=== PATIENT | male | born 1960 | race Caucasian/White ===

== ENCOUNTER 2017-06-15 16:57 | Emergency (ER) | payer OTHER ==
[2017-06-15] MEDS ORDERED: Pantoprazole IV* 40 MG IV ONE (18:55)
[2017-06-15 19:21] LABS: ABS Basophils 0.2 10^3/ul (0-0.2); ABS Eosinophils 0 10^3/ul (0-0.6); ABS Lymphocytes 1.3 10^3/ul (1.0-4.8); ABS Monocytes 0.9 10^3/ul (0-0.8); ABS Neutrophils 10.7 10^3/ul (1.5-7.7); ABS Nucleated RBC 0 10^3/ul; Eosinophil % 0.2 % (0-6); Hematocrit 39 % (42-52); Hemoglobin 13.2 g/dl (14.0-18.0); Lymphocyte % 9.7 % (25-47); Mean Corpuscular HGB Conc 34 g/dl (31-36); Mean Corpuscular Hemoglobin 28 pg (27-31); Mean Corpuscular Volume 81 fL (80-94); Mean Platelet Volume 8 um3 (7.4-10.4); Nucleated Red Blood Cells % 0; Platelet Count 247 10^3/ul (150-450); Red Blood Count 4.78 10^6/ul (4.0-5.4); Red Cell Distribution Width 19 % (10.5-15); White Blood Count 13.1 10^3/ul (3.5-10.8)
[2017-06-15 19:36] LABS: EGFR Non-African American 74.2 (>60)
[2017-06-15 19:58] LABS: Urine Appearance Clear; Urine Blood Negative (Negative); Urine Color Yellow; Urine Ketones Trace (Negative); Urine Protein 2+(100 mg/dL) (Negative); Urine Specific Gravity 1.028 (1.010-1.030); Urine Urobilinogen Negative (Negative)
[2017-06-15 21:21] VITALS: BP 132/81
--- NOTE | 2017-06-15 22:17 | ED ---
Diana Brown Julia, scribed for Kilo Chung MD on 06/15/17 at 1840 . Abdominal Pain/Male - HPI Summary HPI Summary: This patient is a 56 year old M presenting to [facility] with a chief complaint of two bouts of hematemesis beginning at 15:00. Patient reports currently resolved umbilical abdominal pain and nausea. Patient denies melena. The patient rates the previous pain 5/10 in severity. Pt reports no alcohol use in the past week. - History of Current Complaint Chief Complaint: EDAbdPain Stated Complaint: VOMITING BLOOD Time Seen by Provider: 06/15/17 18:14 Hx Obtained From: Patient Onset/Duration: Lasting Hours, Resolved Pain Intensity: 5 - currently resolve Pain Scale Used: 0-10 Numeric Location: Umbilical Associated Signs And Symptoms: Positive: Vomiting - with blood - Allergies/Home Medications Allergies/Adverse Reactions: Allergies Allergy/AdvReac Type Severity Reaction Status Date / Time No Known Allergies Allergy Verified 06/15/17 17:27 Home Medications: Home Medications Cholecalciferol TAB* [Vitamin D TAB*] 1,000 unit PO DAILY 06/15/17 [History Confirmed 06/15/17] Lisinopril/HCTZ 20/12.5(NF) [Zestoretic 20/12.5(NF)] 1 tab PO DAILY 06/15/17 [ History Confirmed 06/15/17] Meloxicam(NF) [Mobic(NF)] 15 mg PO DAILY 06/15/17 [History Confirmed 06/15/17] amLODIPine TAB* [Norvasc 5 mg TAB*] 10 mg PO DAILY 06/15/17 [History Confirmed 06/15/17] PMH/Surg Hx/FS Hx/Imm Hx Cardiovascular History: Reports: Hx Hypertension Infectious Disease History: No Infectious Disease History: Denies: Traveled Outside the [place] in Last 30 Days - Family History Known Family History: Negative: Cardiac Disease, Diabetes Family History: Pt denies any family history. - Social History Alcohol Use: Daily Alcohol Amount: states no use for 1 week Substance Use Type: Reports: None Smoking Status (MU): Light Every Day Tobacco Smoker Review of Systems Negative: Fever Positive: Abdominal Pain, Vomiting - with blood. Negative: Diarrhea - melena All Other Systems Reviewed And Are Negative: Yes Physical Exam - Summary Physical Exam Summary: Appearance: The patient is well-nourished in no acute distress and in no acute pain. Patient is tremorous. Skin: The skin is warm and dry and skin color reflects adequate perfusion. Complexion is stan. HEENT: The head is normocephalic and atraumatic. The pupils are equal and reactive. The conjunctivae are clear and without drainage. Nares are patent and without drainage. Mouth reveals moist mucous membranes and the throat is without erythema and exudate. The external ears are intact. The ear canals are patent and without drainage. The tympanic membranes are intact. Neck: the neck is supple with full range of motion and non-tender. There are no carotid bruits. There is no neck vein distension. Respiratory: Chest is non-tender. Lungs are clear to auscultation and breath sounds are symmetrical and equal. Cardiovascular: Heart is regular rate and rhythm. There is no murmur or rub auscultated. There is no peripheral edema and pulses are symmetrical and equal. Abdomen: The abdomen is soft and non-tender. There are normal bowel sounds heard in all four quadrants and there is no organomegaly palpated. Musculoskeletal: There is no back tenderness noted. Extremities are non-tender with full range of motion. There is good capillary refill. There is no peripheral edema or calf tenderness elicited. Neurological: Patient is alert and oriented to person, place and time. The patient has symmetrical motor strength in all four extremities. Cranial nerves are grossly intact. Deep tendon reflexes are symmetrical and equal in all four extremities. Psychiatric: The patient has an appropriate affect and does not exhibit any anxiety or depression. Triage Information Reviewed: Yes Vital Signs On Initial Exam: Initial Vitals Temp Pulse Resp BP Pulse Ox 98.4 F 110 17 161/97 97 06/15/17 17:09 06/15/17 17:09 06/15/17 17:09 06/15/17 17:09 06/15/17 17:09 Vital Signs Reviewed: Yes Diagnostics - Vital Signs Vital Signs Temp Pulse Resp BP Pulse Ox 06/15/17 18:30 90 16 141/91 96 06/15/17 18:26 97 146/92 97 06/15/17 18:25 96 97 06/15/17 17:09 98.4 F 110 17 161/97 97 - Laboratory Lab Results: Lab Results 06/15/17 06/15/17 06/15/17 Range/Units 19:10 19:10 19:10 WBC 13.1 H (3.5-10.8) 10^3/ul RBC 4.78 (4.0-5.4) 10^6/ul Hgb 13.2 L (14.0-18.0) g/dl Hct 39 L (42-52) % MCV 81 (80-94) fL MCH 28 (27-31) pg MCHC 34 (31-36) g/dl RDW 19 H (10.5-15) % Plt Count 247 (150-450) 10^3/ul MPV 8 (7.4-10.4) um3 Neut % (Auto) 81.9 (38-83) % Lymph % (Auto) 9.7 L (25-47) % Marinette % (Auto) 6.9 (1-9) % Eos % (Auto) 0.2 (0-6) % Baso % (Auto) 1.3 (0-2) % Absolute Neuts (auto) 10.7 H (1.5-7.7) 10^3/ul Absolute Lymphs (auto) 1.3 (1.0-4.8) 10^3/ul Absolute Monos (auto) 0.9 H (0-0.8) 10^3/ul Absolute Eos (auto) 0 (0-0.6) 10^3/ul Absolute Basos (auto) 0.2 (0-0.2) 10^3/ul Absolute Nucleated RBC 0 10^3/ul Nucleated RBC % 0 Sodium 134 (133-145) mmol/L Potassium 3.3 L (3.5-5.0) mmol/L Chloride 97 L (101-111) mmol/L Carbon Dioxide 30 (22-32) mmol/L Anion Gap 7 (2-11) mmol/L BUN 17 (6-24) mg/dL Creatinine 1.03 (0.67-1.17) mg/dL Est GFR ( Amer) 95.4 (>60) Est GFR (Non-Af Amer) 74.2 (>60) BUN/Creatinine Ratio 16.5 (8-20) Glucose 131 H (70-100) mg/dL Lactic Acid 0.8 (0.5-2.0) mmol/L Calcium 9.5 (8.6-10.3) mg/dL Total Bilirubin 0.30 (0.2-1.0) mg/dL AST 9 L (13-39) U/L ALT 5 L (7-52) U/L Alkaline Phosphatase 46 (34-104) U/L C-Reactive Protein < 1.00 (< 5.00) mg/L Total Protein 6.5 (6.4-8.9) g/dL Albumin 4.2 (3.2-5.2) g/dL Globulin 2.3 (2-4) g/dL Albumin/Globulin Ratio 1.8 (1-3) Lipase 97 H (11.0-82.0) U/L Urine Color Urine Appearance Urine pH (5-9) Ur Specific Glen (1.010-1.030) Urine Protein (Negative) Urine Ketones (Negative) Urine Blood (Negative) Urine Nitrate (Negative) Urine Bilirubin (Negative) Urine Urobilinogen (Negative) Ur Leukocyte Esterase (Negative) Urine WBC (Auto) (Absent) Urine RBC (Auto) (Absent) Ur Squamous Epith Cells (Absent) Urine Bacteria (Absent) Hyaline Casts (Absent) Urine Glucose (Negative) 06/15/17 Range/Units 19:42 WBC (3.5-10.8) 10^3/ul RBC (4.0-5.4) 10^6/ul Hgb (14.0-18.0) g/dl Hct (42-52) % MCV (80-94) fL MCH (27-31) pg MCHC (31-36) g/dl RDW (10.5-15) % Plt Count (150-450) 10^3/ul MPV (7.4-10.4) um3 Neut % (Auto) (38-83) % Lymph % (Auto) (25-47) % Marinette % (Auto) (1-9) % Eos % (Auto) (0-6) % Baso % (Auto) (0-2) % Absolute Neuts (auto) (1.5-7.7) 10^3/ul Absolute Lymphs (auto) (1.0-4.8) 10^3/ul Absolute Monos (auto) (0-0.8) 10^3/ul Absolute Eos (auto) (0-0.6) 10^3/ul Absolute Basos (auto) (0-0.2) 10^3/ul Absolute Nucleated RBC 10^3/ul Nucleated RBC % Sodium (133-145) mmol/L Potassium (3.5-5.0) mmol/L Chloride (101-111) mmol/L Carbon Dioxide (22-32) mmol/L Anion Gap (2-11) mmol/L BUN (6-24) mg/dL Creatinine (0.67-1.17) mg/dL Est GFR ( Amer) (>60) Est GFR (Non-Af Amer) (>60) BUN/Creatinine Ratio (8-20) Glucose (70-100) mg/dL Lactic Acid (0.5-2.0) mmol/L Calcium (8.6-10.3) mg/dL Total Bilirubin (0.2-1.0) mg/dL AST (13-39) U/L ALT (7-52) U/L Alkaline Phosphatase (34-104) U/L C-Reactive Protein (< 5.00) mg/L Total Protein (6.4-8.9) g/dL Albumin (3.2-5.2) g/dL Globulin (2-4) g/dL Albumin/Globulin Ratio (1-3) Lipase (11.0-82.0) U/L Urine Color Yellow Urine Appearance Clear Urine pH 5.0 (5-9) Ur Specific Glen 1.028 (1.010-1.030) Urine Protein 2+(100 mg/dl) H (Negative) Urine Ketones Trace H (Negative) Urine Blood Negative (Negative) Urine Nitrate Negative (Negative) Urine Bilirubin Negative (Negative) Urine Urobilinogen Negative (Negative) Ur Leukocyte Esterase Negative (Negative) Urine WBC (Auto) Trace(0-5/hpf) (Absent) Urine RBC (Auto) Trace(0-2/hpf) (Absent) Ur Squamous Epith Cells Present H (Absent) Urine Bacteria Absent (Absent) Hyaline Casts Present H (Absent) Urine Glucose Negative (Negative) Result Diagrams: 06/15/17 19:10 06/15/17 19:10 Lab Statement: Any lab studies that have been ordered have been reviewed, and results considered in the medical decision making process. Abdominal Pain Fem Course/Dx - Course Course Of Treatment: Mr. Markham presented with a bout of epigastric pain and hemetemesis about an hour ago that has since resolved. He denied drinking much alcohol to me but he clearly looked like a big drinker. His W//U was negative and he remained stable here and I recommended he F/U with his PMD. - Diagnoses Provider Diagnoses: Epigastric abdominal pain Discharge - Discharge Plan Condition: Stable Disposition: HOME Patient Education Materials: Epigastric Pain (ED) Referrals: Savage Munguia MD [Medical Doctor] - 1 Week Additional Instructions: RETURN TO THE EMERGENCY DEPARTMENT FOR CHANGING OR WORSENING SYMPTOMS. The documentation as recorded by the Diana walter Julia accurately reflects the service I personally performed and the decisions made by me, Kilo Chung MD.
--- NOTE | 2017-06-18 13:01 | PN ---
Progress Note - Progress Note Date of Service: 06/18/17 Note: Patient's blood cultures is A coccus epidermis. Spoke with patient and patient has not had any fevers. Patient is feeling well. Bacteria is likely contaminant. Will not treat at this time.
== END 2017-06-15 21:20 | disposition home or self-care (01) ==
LOC: ED 16:57
DX: R10.13 Epigastric pain (principal); Z72.0 Tobacco use; I10 Essential (primary) hypertension
CPT/HCPCS: 36415; 80053; 81003; 81015; 83605; 83690; 85025; 86140; 87040; 87077; 87150; 87205; 96374; 99283

== ENCOUNTER 2018-07-21 18:04 | Inpatient (IN) | payer OTHER ==
--- NOTE | 2018-07-21 18:51 | ED ---
Lower Extremity - HPI Summary HPI Summary: A 57 y/o M presents to ED with c/o L hip pain onset today. He rates his L hip pain as 7 out of 10 at bedside. Pt had two mechanical falls: his initial fall was unwitnessed in the bedroom. He says he "trips over everything." He bumped his head, has bruises to his back. His second fall in the kitchen was witnessed by family. He's having difficulty ambulating. Pt has never been in the hospital , he doesnt want to get his hip replaced. Associated sx: UE soreness. He denies JOHNSON, respiratory problems, abd pain, CP. Pt sees a [place] provider in [place]. 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 Neg: JOHNSON, respiratory problems, abd pain, CP, neck pain.. Negative: Abdominal Pain - Allergies/Home Medications Allergies/Adverse Reactions: Allergies Allergy/AdvReac Type Severity Reaction Status Date / Time No Known Allergies Allergy Verified 06/15/17 17:27 Home Medications: Home Medications Ergocalciferol (Vitamin D2) [Vitamin D2] 50 mcg PO DAILY 07/21/18 [History Confirmed 07/21/18] Ferrous Sulfate 325 mg PO DAILY 07/21/18 [History Confirmed 07/21/18] Lisinopril 20 mg PO DAILY WITH MEAL 07/21/18 [History Confirmed 07/21/18] Meloxicam(NF) 15 mg PO DAILY WITH MEAL 07/21/18 [History Confirmed 07/21/18] PMH/Surg Hx/FS Hx/Imm Hx Previously Healthy: No Cardiovascular History: Reports: Hx Hypertension Musculoskeletal History: Reports: Hx Arthritis Sensory History: Denies: Hx Legally Blind Opthamlomology History: Denies: Hx Legally Blind Infectious Disease History: No Infectious Disease History: Denies: Traveled Outside the [place] in Last 30 Days - Family History Known Family History: Negative: Cardiac Disease, Diabetes Family History: Pt denies any family history. - Social History Occupation: Unemployed Lives: Alone Alcohol Use: Daily Alcohol Amount: states no use for 1 week Hx Substance Use: No Substance Use Type: Reports: None Hx Tobacco Use: Yes Smoking Status (MU): Light Every Day Tobacco Smoker Review of Systems Negative: Chest Pain Respiratory: Negative Negative: Abdominal Pain Musculoskeletal: Other - pos: L hip pain, UE soreness, hematoma to his head Positive: Bruising - on back Positive: Headache All Other Systems Reviewed And Are Negative: Yes Physical Exam - Summary Physical Exam Summary: Constitutional: Well-developed, Well-nourished, Alert. (-) Distressed Skin: Warm, Dry HENT: Normocephalic; Abrasion to R parietal scalp. Eyes: Conjunctiva normal Neck: Musculoskeletal ROM normal neck. (-) JVD, (-) Stridor, (-) Tracheal deviation Cardio: Rhythm regular, rate normal, Heart sounds normal; Intact distal pulses; The pedal pulses are 2+ and symmetric. Radial pulses are 2+ and symmetric. (-) Murmur Pulmonary/Chest wall: Effort normal. (-) Respiratory distress, (-) Wheezes, (-) Rales Abd: Soft, (-) tenderness, (-) Distension, (-) Guarding, (-) Rebound Musculoskeletal: . TTP of L lateral hip, pain with passive interior and exterior rotation of LLE, active ROM of LLE appears less painful, LLE is slightly shortened and rotated externally Lymph: (-) Cervical adenopathy Neuro: Alert, Oriented x3 Psych: Mood and affect Normal Triage Information Reviewed: Yes Vital Signs On Initial Exam: Initial Vitals Temp Pulse Resp BP Pulse Ox 97.9 F 97 18 161/106 96 07/21/18 18:09 07/21/18 18:09 07/21/18 18:09 07/21/18 18:09 07/21/18 18:09 Vital Signs Reviewed: Yes - Doroteo Coma Scale Best Eye Response: 4 - Spontaneous Best Motor Response: 6 - Obeys Commands Best Verbal Response: 5 - Oriented Coma Scale Total: 15 Diagnostics - Vital Signs Vital Signs Temp Pulse Resp BP Pulse Ox 07/21/18 18:09 97.9 F 97 18 161/106 96 - Laboratory Result Diagrams: 07/21/18 19:10 07/21/18 19:10 Lab Statement: Any lab studies that have been ordered have been reviewed, and results considered in the medical decision making process. - Radiology HIP XR Radiology Interpretation Completed By: ED Physician Summary of Radiographic Findings: Severe degenerative joint dz of bilat hip, worse on Left. - CT BRAIN CT CT Interpretation Completed By: Radiologist Summary of CT Findings: IMPRESSION: 1. No traumatic intracranial abnormalities. 2. Age-related atrophy and mild chronic small vessel ischemic disease. ED provider has reviewed this report. - EKG No standard instances Cardiac Rate: NL EKG Rhythm: Sinus Rhythm ST Segment: Non-Specific Ectopy: None - Normal axis; Normal [place], QRS, QTC; ST's elevated in V1-V4, t- waves normal. Summary of EKG Findings: Normal axis; Normal [place], QRS, QTC; ST's elevated in V1- V4, t-waves normal. Overall, LVH, nonspecific EKG. Re-Evaluation - Re-Evaluation 1 Re-Evaluation Time: 21:17 Change: Unchanged Comment: Discussing results with pt and family. Lower Extremity Course/Dx - Course Course Of Treatment: Pt is a 57 y/o M presenting with L hip pain onset s/p two mechanical falls today. He bumped his head, Associated sx: UE soreness. He denies JOHNSON, respiratory problems, abd pain, CP. Lab work shows RBC: 3.87, Hgb: 11.8; potassium and calcium are low, total protein: 5.9. ETOH: 332. Hip XR shows Severe degenerative joint dz of bilat hip, worse on Left. Brain CT shows "1. No traumatic intracranial abnormalities. 2. Age-related atrophy and mild chronic small vessel ischemic disease.". MRI showed subtle occult intratrochanteric hip fracture of the left hip. This was discussed with Dr. Ho, who will see him in consultation tomorrow in the hospital. The patient was admitted to the hospitalist service for further evaluation and management of hip fracture. Dr. Calero was consulted and agrees with admission. - Diagnoses Differential Diagnosis/HQI/PQRI: Positive: Contusion, Fracture (Closed) Provider Diagnoses: Hip fracture - Physician Notifications Discussed Care Of Patient With: Nirmal Galeano - ortho Time Discussed With Above Provider: 21:23 Instructed by Provider To: Admit As Inpatient Discharge - Sign-Out/Discharge Documenting (check all that apply): Patient Departure Patient Received Moderate/Deep Sedation with Procedure: No - Discharge Plan Condition: Stable Disposition: ADMITTED TO [facility] Referrals: Sherrie Luther [Primary Care Provider] - - Billing Disposition and Condition Condition: STABLE Disposition: Admitted to [facility] - Attestation Statements Document Initiated by Kalynibalvina: Yes Documenting Scribe: Fatoumata Monroy Provider For Whom Vadim is Documenting (Include Credential): Dr. Lizzeth Lilly MD Scribe Attestation: Fatoumata Brown scribed for Dr. Lizzeth Lilly MD on at [id number]. Scribe Documentation Reviewed: Yes Provider Attestation: The documentation as recorded by the Fatoumata walter accurately reflects the service I personally performed and the decisions made by me, Dr. Lizzeth Lilly MD Status of Scribe Document: Viewed
[2018-07-21] MEDS ORDERED: NS 0.9% 1000 ML** 1,000 ML IV ONE (19:17)
[2018-07-21 19:20] LABS: ABS Basophils 0.1 10^3/ul (0-0.2); ABS Eosinophils 0.1 10^3/ul (0-0.6); ABS Monocytes 0.6 10^3/ul (0-0.8); ABS Neutrophils 4.8 10^3/ul (1.5-7.7); ABS Nucleated RBC 0 10^3/ul; Eosinophil % 1.2 %; Hematocrit 36 % (36-46); Hemoglobin 11.8 g/dL (14.0-18.0); Lymphocyte % 15.5 %; Mean Corpuscular HGB Conc 33 g/dL (31-36); Mean Corpuscular Hemoglobin 31 pg (27-31); Mean Corpuscular Volume 92 fL (80-94); Mean Platelet Volume 7.1 fL (7.4-10.4); Nucleated Red Blood Cells % 0; Platelet Count 251 10^3/uL (150-450); Red Blood Count 3.87 10^6 /uL (4.18-5.48); Red Cell Distribution Width 17 % (10.5-15); White Blood Count 6.6 10^3/uL (3.5-10.8)
[2018-07-21 19:26] LABS: INR 0.93 (0.77-1.02)
[2018-07-21 19:35] LABS: Albumin 3.9 g/dL (3.2-5.2); BUN/Creatinine Ratio 18.5 (8-20); Calcium 8.3 mg/dL (8.6-10.3); EGFR Non-African American 97.5 (>60); Potassium 3.2 mmol/L (3.5-5.0); Total Bilirubin 0.4 mg/dL (0.2-1.0); Total Protein 5.9 g/dL (6.4-8.9)
--- NOTE | 2018-07-21 22:48 | ED ---
Progress - Progress Note Progress Note: Patient was signed out from Dr. Lilly to Dr. Clay during a shift change, pending an MRI report. Re-Evaluation - Re-Evaluation 1 Re-Evaluation Time: 21:17 Change: Unchanged Comment: Discussing results with pt and family. Course/Dx - Course Course Of Treatment: Pt is a 57 y/o M presenting with L hip pain onset s/p two mechanical falls today. He bumped his head, Associated sx: UE soreness. He denies JOHNSON, respiratory problems, abd pain, CP. Lab work shows RBC: 3.87, Hgb: 11.8; potassium and calcium are low, total protein: 5.9. ETOH: 332. Hip XR shows Severe degenerative joint dz of bilat hip, worse on Left. Brain CT shows "1. No traumatic intracranial abnormalities. 2. Age-related atrophy and mild chronic small vessel ischemic disease.". Consulted with Dr. Aiken, roland, who recommends hip MRI. PT WILL BE SIGNED-OUT TO DR. CLAY AT SHIFT CHANGE PENDING MRI READ. - Provider Notifications Time Discussed With Above Provider: 21:23 Instructed by Provider To: Other - Recommends CT hip Discharge - Sign-Out/Discharge Documenting (check all that apply): Receiving Sign-Out Receiving patient FROM: Lizzeth Lilly - Pending an MRI report - Discharge Plan Referrals: Sherrie Luther [Primary Care Provider] - - Attestation Statements Document Initiated by Scribe: Yes Documenting Scribe: Quentin Toribio Provider For Whom Scribe is Documenting (Include Credential): Mahnaz Clay MD Scribe Attestation: Quentin Brown, scribed for Mahnaz Clay MD on 07/21/18 at 2246.
[2018-07-21] MEDS ORDERED: Lisinopril TAB* 10 MG PO ONE (22:51)
[2018-07-21] MEDS ORDERED: Morphine 4 MG/ML VIAL (1 ml) 4 MG/ML VIAL IV PRN (22:52)
[2018-07-22] MEDS ORDERED: amLODIPine TAB* 5 MG PO ONE (00:08)
[2018-07-22] MEDS ORDERED: oxyCODONE/Acetamin 5/325 MG* TAB PO PRN (00:09)
[2018-07-22] MEDS ORDERED: hydrALAZINE IV* 20 MG/ML VIAL IV SLOW PU PRN (00:12)
[2018-07-22 00:29] LABS: Magnesium 2.1 mg/dL (1.9-2.7)
[2018-07-22] MEDS ORDERED: Potassium Chloride LIQUID* 20 MEQ PACKET PO ONE (01:00)
[2018-07-22] MEDS: Nicotine PATCH 21 MG/24 HR* PATCH TRANSDERM SCH ×2 (01:51→07:19)
[2018-07-22] MEDS: Aspirin 81 mg CHEW TAB* 81 MG TAB.CHEW PO SCH ×2 (01:53→07:19)
[2018-07-22] MEDS ORDERED: Mouth Piece, Nicotine* 1 EACH CARTRIDGE INH ONE (02:00)
[2018-07-22] MEDS ORDERED: NS 0.9% 1000 ML** 1,000 ML IV SCH (06:30)
[2018-07-22 07:01] LABS: BUN/Creatinine Ratio 16.2 (8-20); Calcium 8.2 mg/dL (8.6-10.3); EGFR African American 144.4 (>60); EGFR Non-African American 119.4 (>60); Magnesium 1.7 mg/dL (1.9-2.7); Potassium 3.4 mmol/L (3.5-5.0)
[2018-07-22] MEDS ORDERED: Nicotine PATCH 21 MG/24 HR* PATCH TRANSDERM SCH (08:00)
[2018-07-22] MEDS: LORazepam TAB(*) 1 MG PO SCH ×3 (08:22→14:18)
[2018-07-22] MEDS: Folic Acid TAB* 1 MG PO SCH (08:23)
[2018-07-22] MEDS: Ferrous Sulfate TAB* 325 MG PO SCH (08:23)
[2018-07-22] MEDS: Thiamine TAB* 100 MG TAB PO SCH (08:24)
[2018-07-22] MEDS: Multivitamins/Minerals TAB PO SCH (08:24)
[2018-07-22] MEDS ORDERED: Magnesium Sulfate 2 GM IV* 2 GM/50 ML BAG IVPB ONE (08:42)
--- NOTE | 2018-07-22 09:01 | HP ---
HISTORY AND PHYSICAL: DATE OF ADMISSION: 07/21/18 ADMITTING PROVIDER: Trevor Calero MD. PRIMARY CARE PROVIDER: ROBERT Trammell, [facility]. CHIEF COMPLAINT: Inability to ambulate, left hip pain in the setting of frequent falls and severe bilateral osteoarthritis. HISTORY OF PRESENT ILLNESS: Hubert Markham is a 57-year-old male with past medical history of current and longstanding alcoholism, 2-myow-cpn-day smoker for the last 40 years, hypertension, severe bilateral hip osteoarthritis who falls frequently both with and without the presence of alcohol in his system. He is a very poor historian, but thankfully his sister; Salima Mora, and brother ; Marco A Markham, are in the room to provide additional history and accompanied Hubert to his [place] phlebotomy appointment this morning of admission and was noted to have difficulty with ambulation more than normal requiring his baseline cane. She states he did fall today. Hubert thinks that he has fallen over the last few days and at any point of time over the last few days, he may have hurt his hip as he has had increased pain with ambulation. He was convinced to seek medical attention by his sister and brother, and in the [facility] emergency room, he initially had a hip and pelvis x-ray, which reportedly did not show clear evidence of a fracture and Dr. Guzman Henry of the emergency room contacted orthopedics on-call coverage, Dr. Galeano, at that time, and given that the patient was still not able to ambulate, MRI of the left hip was obtained and that has since showed evidence of a left intertrochanteric femur fracture that was subtle and occult along with severe left and mild right hip primary osteoarthritis. He was therefore referred to hospitalist service for admission and Dr. Lilly, updated Dr. Galeano with these results and orthopedics will see the patient tomorrow. Because of his severe osteoarthritis, the patient does not ambulate well, uses a cane, has to use 3 steps to get into his house. Denies exercise. Denies getting chest pains. He denies ever having a heart attack or an echocardiogram of his heart. His brother, Marco A Markham, implies that he cannot necessarily be trusted to describe his symptoms or his alcohol use with any reliability. He is currently stating his pain is 5/10 in his hip, but that reportedly has been varying widely. He has been hypertensive and skipped his medications today, currently 189/125. EKG showed normal sinus rhythm with concern for left ventricular hypertrophy. PAST MEDICAL HISTORY: Alcohol abuse; current and longstanding, hypertension, severe left and mild right hip primary osteoarthritis, current smoker of 40 pack - years, vitamin D deficiency, iron deficiency. HOME MEDICATIONS: Include: 1. Ferrous sulfate 325 mg p.o. daily. 2. Ergocalciferol 50 mcg p.o. daily. 3. Meloxicam 15 mg p.o. daily. 4. Lisinopril 20 mg p.o. daily. 5. Aspirin 325 mg daily. ALLERGIES: No known drug allergies. FAMILY HISTORY: Father of lung cancer at age 65. Mother of kidney failure at age 83; she also had CHF and hypertension. SOCIAL HISTORY: The patient drinks vodka; he does not say how much, but implication from brother is that it is frequent and daily. He is a 1-pack-per- day smoker since joining the [employer] at age 18, so approximately 40 pack-years. He has had a DUI. 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 He lives alone. Desires to be a full code. Medical surrogates are his siblings, Marco A Markham and Salima Mora. REVIEW OF SYSTEMS: A 14-point review of systems is negative, except as per HPI. PHYSICAL EXAMINATION GENERAL APPEARANCE: In no acute distress. VITAL SIGNS: Temperature currently 99.3, pulse rate 97, respiratory rate 16 to 18, satting 96% on room air, blood pressure currently 189/125. HEENT: Normocephalic, atraumatic. Pupils are equal, round, and reactive to light. Extraocular muscles intact. No scleral icterus. NECK: Supple. LUNGS: Clear to auscultation bilaterally with no wheezing, rales, or rhonchi. CARDIOVASCULAR: Regular rate and rhythm. No murmurs, rubs, or gallops. ABDOMEN: Soft, nontender, nondistended. EXTREMITIES: Warm, well perfused. No peripheral edema. There is some slight erythema at the left hip. NEURO: Cranial nerves II through XII intact. [employer] strength intact. Biceps intact. Moving all extremities and can wiggle toes. Sensation intact. DIAGNOSTIC STUDIES/LAB DATA: Labs: White count 6.6, hemoglobin 11.8, hematocrit 36, platelets 251. INR 0.93. Sodium 142, potassium 3.2, chloride 102 , carbon dioxide 31, BUN of 15, creatinine 0.81, glucose 93, magnesium 2.1. Total bili 0.4, AST 26, ALT 13, albumin of 3.9. Serum alcohol 332. Imaging: CT of the brain demonstrated no traumatic intracranial abnormalities. There is age-related atrophy and mild chronic small-vessel ischemic disease. Hip and pelvis x-ray, read pending. Left MRI of the hip showed subtle occult left femoral intertrochanteric fracture and severe left and mild right hip primary osteoarthritis. EKG demonstrated a normal sinus rhythm. Normal axes. No ST elevations or depressions, but some early repolarization in anterior limb leads, V1 to V3. Evidence of left ventricular hypertrophy. QTc of 458. ASSESSMENT AND PLAN: Hubert Markham is a 57-year-old male with past medical history of current alcoholism, smoking, hypertension, and bilateral hip osteoarthritis presenting with frequent falls and now evidence of a subtle occult left intertrochanteric femur fracture. Appreciate recommendations from Orthopedics, who will be seeing the patient tomorrow. Presumably, he will be evaluated for a possible surgical procedure. This will potentially be complicated by his longstanding alcoholism. Of note, his markedly elevated EtOH level here is 332. He will be placed on WAM protocol with frequent Ativan p.r.n. and consideration for starting Librium if starts to score. In terms of his cardiac risk assessment, he does not exercise and his mobility is limited by his hip osteoarthritis for several years. Denies any chest pain. He does have evidence of left ventricular hypertrophy. No evidence of ischemic Q waves on EKG. No evidence of diabetes mellitus, currently non-insulin dependent. Given his risk factors of uncontrolled hypertension, 40 pack-years of and current smoking, I think it is reasonable to get a echocardiogram in the morning to assess for any cardiac disease such as regional wall motion abnormalities. As he is clinically euvolemic, I am not suspicious for any congestive heart failure. 1. Hypertension, uncontrolled. He has got his home lisinopril 20 here about an hour ago. I am adding amlodipine 10. I am increasing his lisinopril to 40 in the morning and we will have to closely monitor him. I am going to start hydralazine 10 mg IV q.2 hours p.r.n. for systolics above 180. It could be elevated also in the setting of acute pain, which we are controlling with adding on 1 to 2 Percocet tabs q.6 hours p.r.n. for [id number] pain. Consideration for IV medications if these are not adequate. 2. For his smoking history, start nicotine patch 20 mcg per hour tomorrow. 3. For his vitamin D deficiency, continue ergocalciferol or formulary substitute. 4. For his iron deficiency with some slight anemia and elevated RDW with intact MCV, continue his ferrous sulfate. Consideration for iron studies, but we will likely request records from the [place] system initially. 5. He is a full code. I will put him n.p.o. at midnight in case they want to do surgery tomorrow. His medical surrogates are his siblings, Marco A Markham and Salima Mora. [id number]/[facility] #: [id number] MTDJanice
[2018-07-22] MEDS: Lisinopril TAB* 10 MG PO SCH (09:53)
--- NOTE | 2018-07-22 10:51 | ECHO ---
Patient: THEO WASHINGTON [facility] Rec#: [id number] : 1960 Date: 07/22/2018 Age: 57y Height: 178 cm / 70.1 in Weight: 68 kg / 149.9 lbs Sex: M BSA: 1.85 Room#: 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 Technical Comments: The study is technically limited due to the patient's smoking history. Completed at 0850. The study was technically limited due to the patient's inability to lay in the left lateral decubitus position. Left Ventricle: The left ventricular chamber size is decreased. The estimated ejection fraction is greater than 65%. Abnormal left ventricular diastolic function is observed. Abnormal left ventricular diastolic filling is observed, consistent with impaired relaxation. Left Atrium: The left atrial chamber size is normal. Right Ventricle: The right ventricle is not well visualized. Right Atrium: The right atrium is not well visualized. Aortic Valve: The aortic valve structure is not well visualized. Mitral Valve: The mitral valve leaflets are mildly thickened. There is no evidence of mitral regurgitation. There is no evidence of mitral stenosis. Tricuspid Valve: The tricuspid valve leaflets are normal. There is trace to mild tricuspid regurgitation. Unable to estimate the right ventricular systolic pressure. There is evidence that pulmonary hypertension may be underestimated. There is no tricuspid stenosis. Pulmonic Valve: The pulmonic valve appears normal. There is no evidence of pulmonic regurgitation. There is no pulmonic stenosis. Pericardium: The pericardium appears normal. Aorta: The ascending aorta is not well visualized. There is no dilatation of the aortic arch. There is mild dilatation of the aortic root. Pulmonary Artery: The main pulmonary artery appears normal. Venous: The inferior vena cava appears normal in size. ? patient cooperation with sniff. Summary: There was not any prior study for comparison. Conclusions Suboptimal imaging due to hip fracture and limited mobility. The estimated ejection fraction is greater than 65%. There is trace to mild tricuspid regurgitation. Abnormal left ventricular diastolic filling is observed, consistent with impaired relaxation. Measurements Name Value Normal Range RVDdMajor (2D) 2.8 cm (2.2 - 4.4) IVSd (2D) 0.8 cm (0.6 - 1) LVPWd (2D) 0.9 cm (0.6 - 1) LVIDd (2D) 3.2 cm (3.6 - 5.4) LVIDs (2D) 2.9 cm - Aortic Annulus 1.8 cm (1.4 - 2.6) Ao root diameter (2D) 3.7 cm (2.1 - 3.5) Aortic arch 2.6 cm (1.8 - 3.4) Descending Ao 0.4 cm - LA dimension (AP) 2D 2.4 cm (2.3 - 3.8) LAd ISD 4CH 5.4 cm (2.9 - 5.3) LA ISD 4CH W 4.2 cm (2.5 - 4.5) Name Value Normal Range LA ESV SP 4CH (A/L) 30 ml - LA ESV SP 2CH (A/L) 24 ml - LA ESV BP (A/L) index 27 ml/m2 - Name Value Normal Range MV E-wave Vmax 0.6 m/sec - MV deceleration time 264 msec - MV A-wave Vmax 1.1 m/sec - MV E:A ratio 0.5 ratio - LV septal e' Vmax 0.8 m/sec - LV lateral e' Vmax 0.6 m/sec - LV E:e' septal ratio 7.5 ratio - LV E:e' lateral ratio 10 ratio - Name Value Normal Range AV Vmax 1.3 m/sec - AV VTI 25.3 cm - AV peak gradient 7 mmHg - AV mean gradient 3 mmHg - LVOT Vmax 1 m/sec - LVOT VTI 21.4 cm - LVOT peak gradient 4 mmHg - LVOT mean gradient 2 mmHg - Name Value Normal Range IVC diameter 2 cm - Name Value Normal Range PV Vmax 0.7 m/sec - PV peak gradient 2 mmHg -
--- NOTE | 2018-07-22 13:13 | CONS ---
CC: Dr. Nirmal Galeano. CONSULTATION REPORT: DATE OF CONSULT: 07/22/18 ATTENDING ORTHOPEDIC PROVIDER: Dr. Nirmal Galeano. PRIMARY CARE PROVIDER: Sherrie Luther NP, [facility]. CHIEF COMPLAINT: Inability to ambulate with severe left hip pain in the setting of frequent falls, most recently yesterday. HISTORY OF PRESENT ILLNESS: Hubert Markham is a 57-year-old male. He has a past medical history of current longstanding alcoholism, reports drinking roughly 4 ounces of vodka per day. He is a 1 pack per day smoker for 40 years, hypertension, frequent falls and severe left hip pain. History provided by the patient is quite limited. Therefore, his sister provides a great deal of the history. Apparently, the patient has had left hip pain, severe enough to require a walker or a cane for several years. Over the past several months, the pain has worsened and more recently in the past 3 days, he has had pain severe enough that he struggles to bear weight on the left leg. Yesterday he suffered a fall that prompted him to come into the emergency room as pain was again increasingly severe with inability to bear weight at all on the left leg. The patient has frequent falls at home, which his PCP is aware of and have been attributed to alcoholism. In the emergency room, he had a hip and pelvis x -ray, which did not show any clear evidence of fracture. An MRI was ordered, which showed severe osteoarthritis with the question of an intratrochanteric fracture, though upon further review from the orthopedic team as well as Radiology, MRI is interpret as severe arthritis without any evidence of IT fracture. Today he reports that he has no pain when he is lying still in bed of his left hip though he has severe pain with any movement or any attempt to ambulate. Pain is localized to the left hip without any radiation. It is sharp in nature, worse with any movement, better with rest. For several months he has had pain with any flexion of the hip though he has been able to range the hip enough to sit in a chair. The patient reports no other injuries from his fall though he has chronic right shoulder pain for months. PAST MEDICAL HISTORY: Alcoholism, hypertension, right hip osteoarthritis, current everyday smoker. HOME MEDICATIONS: 1. Ferrous sulfate 325. 2. Vitamin D. 3. Meloxicam 50 mg p.o. daily. 4. Lisinopril 20 mg p.o. daily. 5. Aspirin 325 mg daily. ALLERGIES: No known drug allergies. FAMILY HISTORY: Father of lung cancer, age 65; mother of kidney failure, age 83. SOCIAL HISTORY: The patient drinks vodka, reports drinking roughly 4 ounces a day for several months. He is a 1 pack per day smoker for roughly 40 years. The patient lives alone and takes care of himself. Sister reports that he was generally able to have a sensible conversation up until 3 days ago when he became quite confused. He does suffer frequent falls and utilizes a walker or cane. REVIEW OF SYSTEMS: Is quite limited as patient provides limited history. Sister reports that he has recent onset of confusion within 3 days, worsening left hip pain with inability to bear weight. The patient denies chest pain, shortness of breath, abdominal pain, nausea, or vomiting. He confirms hiccups since 4 am. PHYSICAL EXAM: The patient is lying in bed. He is alert though sleepy, falling asleep during questioning and answering only some of my questions. When he does answer, he answers appropriately. Head is normocephalic, atraumatic. Eyes: Extraocular movements intact. Mouth: Poor dentition. Cardiac: S1, S2. Respiratory: Clear to auscultation. Abdomen: Soft, nontender, bowel sounds normoactive. Musculoskeletal: Bilateral upper extremities with skin envelope intact. Able to produce flexion and extension at elbow, wrist and digits without pain. Able to forward flex shoulders without pain. Right side limited to roughly 110 degrees of forward flexion before pain. Upper extremities are nontender to palpation. Lower Extremities: Right lower extremity skin envelope intact. Nontender to palpation. Able to flex and extend at the hip, knee, ankle, and digits without pain. Negative log roll at the hip. Left lower extremity skin envelope intact. Mild ecchymosis over the left hip. This area is tender to palpation. The left lower extremity is otherwise nontender to palpation. Thigh is soft. He is able to flex and extend the digits and ankle without pain. Knee flexion produces pain into the hip. Flexion of the hip active and passive to 90 degrees. The patient has pain with this though once he arrives at 90 degrees pain subsides. He has pain with external rotation and unable to internally rotate. The patient reports that this range of motion has been baseline for the past several months. He has no pain with log roll and no pain with heel strike. There is no shortening or rotation of the limb. Neuro: Sensation intact to light touch throughout bilateral upper and lower extremities. Vascular: DP 2+ bilaterally. DIAGNOSTIC STUDIES/LAB DATA: Brain CT: No traumatic intracranial abnormalities. Hip and pelvis x-ray: Left greater than right osteoarthritis, no radiographic evidence for hip fracture. Hip MRI: It was initially felt that the patient could potentially have an intratrochanteric fracture, but after review this morning by orthopedic team as well as Radiology, new impression stands as markedly advanced osteoarthritis with flattening of the femoral head, subchondral sclerosis, subchondral cystic change, and associated subchondral bone marrow edema, associated joint effusion with evidence for synovitis, developmental dysplasia likely predisposed to the advanced left hip osteoarthritis, no discrete fracture plane evident in the left proximal femur or acetabulum, advanced atrophy of the left gluteus minimus muscle noted. Lab Studies: Hemoglobin 11.8, hematocrit 36, platelets 251. Potassium 3.4, calcium 8.2, magnesium 1.7. Serum alcohol 332. ASSESSMENT: This is severe osteoarthritis of the left hip joint. PLAN: He will be weightbearing as tolerated with assistance. He will engage in physical therapy and occupational therapy. If patient is able to mobilize sufficiently with physical therapy, he can be discharged to home and follow up with Dr. Carroll to discuss a total hip replacement. If he is unable to mobilize , we will revisit his options which would include a total hip replacement during this admission, though outpatient elective total hip is the preferred avenue. Discussed with patient the need to discontinue alcohol use. Orthopedics will follow while in house. ERIK VASQUEZ [id number]/[facility] #: [id number] SHERYL
--- NOTE | 2018-07-22 17:38 | PN ---
Subjective Date of Service: 07/22/18 Interval History: Pt states that he feels okay. Pt is shaking, but states that he has a baseline tremor that he has had for "years." It is noted that the pt has hiccups. He also appears slightly axious, but is cooperative. Pt states that he drinks approximately 1 pint of vodka daily and the last time he drank was 2 days ago. Pt c/o L hip pain. Denies CP, SOB, abd pain, n/v/d/c, pain in calves, loss of sensation or movement in LE. Objective Active Medications: Amlodipine Besylate (Norvasc Tab*) 10 mg PO DAILY [facility] Aspirin (Aspirin 81 Mg Chew Tab*) 81 mg PO DAILY [facility] Ferrous Sulfate (Ferrous Sulfate Tab*) 325 mg PO DAILY [facility] Folic Acid (Folvite Tab*) 1 mg PO DAILY [facility] Hydralazine HCl (Apresoline Iv*) 10 mg IV SLOW PU Q2H PRN Lisinopril (Prinivil Tab*) 40 mg PO DAILY [facility] Lorazepam (Ativan Tab(*)) 0 - 6 mg PO .PER [facility] PROTOCOL GERARDO; Protocol Morphine Sulfate (Morphine 4 Mg/Ml Vial (1 Ml)) 2 mg IV Q2H PRN Multivitamins/Minerals (Theragran/Minerals Tab*) 1 tab PO DAILY [facility] Nicotine (Nicotine Patch 21 Mg/24 Hr*) 1 patch TRANSDERM DAILY@0800 [facility] Nicotine (Nicotine Inhaler*) 10 mg INH Q2H PRN Non-Formulary Medication (Ergocalciferol (Vitamin D2) [Vitamin D2]) 50 mcg PO DAILY [facility] Oxycodone/Acetaminophen (Percocet 5/325 Tab*) 1 tab PO Q6H PRN Oxycodone/Acetaminophen (Percocet 5/325 Tab*) 2 tab PO Q6H PRN Pharmacy Profile Note (Nicotine Patch Removal Note*) 1 note FOLLOW UP 2100 [facility] Thiamine HCl (Vitamin B-1 Tab*) 100 mg PO DAILY [facility] Vital Signs: Temp Pulse Resp BP Pulse Ox 99.1 F 93 16 145/101 97 07/22/18 16:14 07/22/18 16:14 07/22/18 16:21 07/22/18 16:14 07/22/18 16:14 Oxygen Devices in Use Now: None Appearance: Pt is sitting up in bed. He has resting tremor and appears slightly anxious, without aggitation. He is cooperative and appropriate. Pt is a/o x3, but answers questions slowly and with a small amount of slurring of speech. It is noted that he has hiccups that may be interfering with speech. Eyes: No Scleral Icterus, PERRLA, - - Without nystagmus Ears/Nose/Mouth/Throat: NL Teeth, Lips, Gums, Mucous Membranes Moist Neck: NL Appearance and Movements; NL JVP, Trachea Midline Respiratory: Symmetrical Chest Expansion and Respiratory Effort, Clear to Auscultation Cardiovascular: NL Sounds; No Murmurs; No JVD, RRR, No Edema Abdominal: NL Sounds; No Tenderness; No Distention, No Hepatosplenomegaly Extremities: No Edema, No Clubbing, Cyanosis, - - Without asterixis. L hip is TTP with ecchymosis. Pt moves all extremities. Neurological: Alert and Oriented x 3 Result Diagrams: 07/21/18 19:10 07/22/18 06:25 Assess/Plan/Problems-Billing Assessment: Pt is a 57yom with PMHx of HTN, alcohol abuse, severe L, mild R hip OA, Fe def anemia, Vit D def who presents after a fall with L hip pain (no fx) uncontrolled HTN in setting of acute pain and EtOH withdrawal. - Patient Problems (1) Hypertension Comment: -SBP 140-180's; likely due to combination of pain and EtOH withdrawal -Continue hydralazine, losartan 40 -Restart Amlodipine 10 -Continue IV hydration at 100cc/h x2L (2) Alcohol withdrawal Comment: -[facility] protocol ordered -Continue to monitor (3) Osteoarthritis of left hip Comment: -Consulted ortho- thank you for recommendations -WBAT -PT/OT -F/u Dr. Carroll outpatient for total hip replacement (4) DVT prophylaxis Current Visit: Yes Status: Acute Code(s): [id number] - SNOMED Code(s): 508949653 (5) Full code status Current Visit: Yes Status: Acute Code(s): Z78.9 - OTHER SPECIFIED HEALTH STATUS SNOMED Code(s): 853333472 Status and Disposition: Inpatient. Discharge when stable.
[2018-07-22] MEDS: oxyCODONE/Acetamin 5/325 MG* TAB PO PRN (18:06)
[2018-07-22] MEDS: NS 0.9% 1000 ML** 1,000 ML IV SCH (18:14)
[2018-07-22] MEDS ORDERED: Morphine INJ* 2 MG/ML 1 ML SYRINGE (TWO MG - NEW SYRINGE VERSION) IV PRN (18:46)
--- NOTE | 2018-07-22 19:01 | PN ---
Progress Note - Progress Note Date of Service: 07/22/18 Note: I saw and examined Hubert. Please see Lizzeth Yost's consult note for full details. Hubert was not very participatory with talking or exam. He mostly mumbled responses which were often not understandable. I wasn't able to get much history from him other than that he has had long-standing left hip pain. On exam of the hip there is no significant hematoma or ecchymoses appreciated. No TTP over GT. No pain will logroll. No pain with short arc PROM. ROM limited as would be expected with severe arthritis. I reviewed xrays and MRI and discussed with Dr Harrison. Imaging most c/w severe left hip arthritis. No signal on T2 MRI at IT region to suggest occult fracture. The line seen on T1 is similar on right hip. Overall i think [facility] exam and imaging more c/w severe arthritis than a hip fracture. Therefore I would recommend mobilization with PT. He can f/u as an outpatient with my colleague Dr Carroll to further discuss a left BEAN. Nirmal Galeano MD
[2018-07-22] MEDS: Nicotine Patch Removal NOTE FOLLOW UP SCH (21:30)
[2018-07-23] MEDS: NS 0.9% 1000 ML** 1,000 ML IV SCH (04:19)
[2018-07-23 05:58] LABS: Hematocrit 32 % (36-46); Hemoglobin 10.5 g/dL (14.0-18.0); Mean Corpuscular HGB Conc 33 g/dL (31-36); Mean Corpuscular Hemoglobin 31 pg (27-31); Mean Corpuscular Volume 92 fL (80-94); Mean Platelet Volume 7.5 fL (7.4-10.4); Platelet Count 186 10^3/uL (150-450); Red Blood Count 3.44 10^6 /uL (4.18-5.48); Red Cell Distribution Width 17 % (10.5-15); White Blood Count 5.1 10^3/uL (3.5-10.8)
[2018-07-23 06:18] LABS: BUN/Creatinine Ratio 14.3 (8-20); Calcium 8.1 mg/dL (8.6-10.3); EGFR African American 157.7 (>60); EGFR Non-African American 130.4 (>60); Magnesium 1.9 mg/dL (1.9-2.7)
[2018-07-23] MEDS ORDERED: Ondansetron INJ* 2 MG/ML VIAL IV PRN (09:57)
[2018-07-23] MEDS: Ferrous Sulfate TAB* 325 MG PO SCH ×2 (10:00→11:09)
[2018-07-23] MEDS: Multivitamins/Minerals TAB PO SCH ×2 (10:00→11:09)
[2018-07-23] MEDS: ERGOCALCIFEROL 50 MCG PO SCH (10:00)
[2018-07-23] MEDS: Folic Acid TAB* 1 MG PO SCH ×2 (10:00→11:09)
[2018-07-23] MEDS ORDERED: Ondansetron INJ* 2 MG/ML VIAL ONE (10:01)
[2018-07-23] MEDS: Nicotine PATCH 21 MG/24 HR* PATCH TRANSDERM SCH (10:03)
[2018-07-23] MEDS ORDERED: Potassium Chlor TAB* 20 MEQ TAB.ER PO ONE (10:23)
[2018-07-23] MEDS ORDERED: chlordiazePOXIDE CAP* 25 MG PO ONE (10:43)
[2018-07-23] MEDS: Lisinopril TAB* 10 MG PO SCH (11:08)
[2018-07-23] MEDS: LORazepam TAB(*) 1 MG PO SCH ×6 (11:08→22:09)
[2018-07-23] MEDS: Thiamine TAB* 100 MG TAB PO SCH (11:09)
[2018-07-23] MEDS: Aspirin 81 mg CHEW TAB* 81 MG TAB.CHEW PO SCH (11:09)
[2018-07-23] MEDS: amLODIPine TAB* 5 MG PO SCH (11:09)
--- NOTE | 2018-07-23 14:11 | PN ---
Progress Note - Progress Note Date of Service: 07/23/18 SOAP: Subjective: []Pt seen at bedside. His left hip is painful but he reports walking to the bathroom Objective: []General: NAD, conversation appropriate though still slow today LLE: laying in bed with left knee bent, hip at 90 degrees patient without discomfort in this position at rest. Negative for pain with log roll. Assessment: []left hip severe osteoarthritis Plan: []WBAT with assist FU Dr Carroll outpt Vital Signs Temp 97.9 F 07/23/18 08:50 Pulse 121 07/23/18 13:51 Resp 16 07/23/18 13:51 BP 145/118 07/23/18 13:51 Pulse Ox 95 07/23/18 13:51 Intake & Output 07/22/18 07/23/18 07/23/18 18:59 06:59 18:59 Intake Total 1388 60 Output Total 700 300 600 Balance 688 -240 -600 Intake: IV Fluids 808 NS 808 Medicated IV 50 Magnesium 50 Oral 530 60 Output: Urine 700 300 350 Emesis 250 Other: Estimated Void Medium # Bowel Movements 0 # Voids 1
--- NOTE | 2018-07-23 16:21 | PN ---
Subjective Date of Service: 07/23/18 Interval History: Nauseous this am disorientated and trying to get out of bed to urinate Objective Active Medications: Amlodipine Besylate (Norvasc Tab*) 10 mg PO DAILY [facility] Last Admin: 07/23/18 11:09 Dose: 10 mg Aspirin (Aspirin 81 Mg Chew Tab*) 81 mg PO DAILY [facility] Last Admin: 07/23/18 11:09 Dose: 81 mg Ferrous Sulfate (Ferrous Sulfate Tab*) 325 mg PO DAILY [facility] Last Admin: 07/23/18 11:09 Dose: 325 mg Folic Acid (Folvite Tab*) 1 mg PO DAILY [facility] Last Admin: 07/23/18 11:09 Dose: 1 mg Hydralazine HCl (Apresoline Iv*) 10 mg IV SLOW PU Q2H PRN PRN Reason: SYSTOLIC BP GREATER THAN: Last Admin: 07/22/18 12:25 Dose: 10 mg Sodium Chloride (Ns 0.9% 1000 Ml) 1,000 mls @ 100 mls/hr IV PER RATE [facility] Stop: 07/24/18 03:59 Last Admin: 07/23/18 04:19 Dose: 100 mls/hr Lisinopril (Prinivil Tab*) 40 mg PO DAILY [facility] Last Admin: 07/23/18 11:08 Dose: 40 mg Lorazepam (Ativan Tab(*)) 0 - 6 mg PO .PER [facility] PROTOCOL [facility]; Protocol Last Admin: 07/23/18 16:13 Dose: 4 mg Multivitamins/Minerals (Theragran/Minerals Tab*) 1 tab PO DAILY [facility] Last Admin: 07/23/18 11:09 Dose: 1 tab Nicotine (Nicotine Patch 21 Mg/24 Hr*) 1 patch TRANSDERM DAILY@0800 [facility] Last Admin: 07/23/18 10:03 Dose: 1 patch Nicotine (Nicotine Inhaler*) 10 mg INH Q2H PRN PRN Reason: CRAVING Non-Formulary Medication (Ergocalciferol (Vitamin D2) [Vitamin D2]) 50 mcg PO DAILY [facility] Last Admin: 07/23/18 10:00 Dose: Not Given Ondansetron HCl (Zofran Inj*) 4 mg IV Q4H PRN PRN Reason: NAUSEA Last Admin: 07/23/18 10:02 Dose: 4 mg Oxycodone/Acetaminophen (Percocet 5/325 Tab*) 2 tab PO Q6H PRN PRN Reason: PAIN - SEVERE Last Admin: 07/22/18 18:06 Dose: 2 tab Pharmacy Profile Note (Nicotine Patch Removal Note*) 1 note FOLLOW UP 2099 [facility] Last Admin: 07/22/18 21:30 Dose: 1 note Thiamine HCl (Vitamin B-1 Tab*) 100 mg PO DAILY [facility] Last Admin: 07/23/18 11:09 Dose: 100 mg Vital Signs - 8 hr 07/23/18 07/23/18 07/23/18 08:50 10:54 11:08 Temperature 97.9 F Pulse Rate 72 113 Respiratory 16 18 18 Rate Blood Pressure 164/99 164/112 (mmHg) O2 Sat by Pulse 97 97 Oximetry 07/23/18 07/23/18 07/23/18 11:09 13:25 13:31 Temperature Pulse Rate Respiratory 18 18 20 Rate Blood Pressure (mmHg) O2 Sat by Pulse Oximetry 07/23/18 07/23/18 13:51 16:13 Temperature Pulse Rate 121 Respiratory 16 16 Rate Blood Pressure 145/118 (mmHg) O2 Sat by Pulse 95 Oximetry Oxygen Devices in Use Now: None Appearance: disheveled, NAD Eyes: No Scleral Icterus, PERRLA Ears/Nose/Mouth/Throat: NL Teeth, Lips, Gums, Clear Oropharnyx Neck: NL Appearance and Movements; NL JVP, Trachea Midline Respiratory: Symmetrical Chest Expansion and Respiratory Effort, Clear to Auscultation Cardiovascular: RRR Abdominal: NL Sounds; No Tenderness; No Distention, No Hepatosplenomegaly Lymphatic: No Cervical Adenopathy Extremities: No Edema Skin: - - lipoma on right forearm Neurological: Alert and Oriented x 3, - - tongue tremor, tremor bl arms Result Diagrams: 07/23/18 05:37 07/23/18 05:37 Assess/Plan/Problems-Billing Assessment: Pt is a 57yom with PMHx of HTN, alcohol abuse, severe L, mild R hip OA, iron def anemia, Vit D def who presents after a fall with L hip pain (no fx) uncontrolled HTN in setting of acute pain and EtOH withdrawal. - Patient Problems (1) Alcohol withdrawal Comment: - c/w WAM protocol -single dose 25mg librium today -Continue to monitor (2) Hypertension Comment: -SBP elevated likely due to combination of pain and EtOH withdrawal -Continue hydralazine PRN - lisinopril and Amlodipine (3) Osteoarthritis of left hip Comment: -Consulted ortho -WBAT -PT/OT -F/u Dr. Carroll outpatient for total hip replacement -pain from fall on left hip (4) DVT prophylaxis Comment: HSQ Status and Disposition: Inpatient. Discharge when stable.
[2018-07-23] MEDS: Heparin VIAL(*) 5000 UNITS/ML VIAL (FIVE THOUSAND) SUBCUT SCH (22:42)
[2018-07-23] MEDS: Nicotine Patch Removal NOTE FOLLOW UP SCH (22:42)
[2018-07-24] MEDS: LORazepam TAB(*) 1 MG PO SCH ×6 (00:13→20:46)
[2018-07-24] MEDS: Heparin VIAL(*) 5000 UNITS/ML VIAL (FIVE THOUSAND) SUBCUT SCH ×3 (06:06→20:47)
[2018-07-24] MEDS: amLODIPine TAB* 5 MG PO SCH (10:36)
[2018-07-24] MEDS: Lisinopril TAB* 10 MG PO SCH (10:36)
[2018-07-24] MEDS: Folic Acid TAB* 1 MG PO SCH (10:41)
[2018-07-24] MEDS: Ferrous Sulfate TAB* 325 MG PO SCH (10:41)
[2018-07-24] MEDS: Aspirin 81 mg CHEW TAB* 81 MG TAB.CHEW PO SCH (10:41)
[2018-07-24] MEDS: ERGOCALCIFEROL 50 MCG PO SCH (10:49)
[2018-07-24] MEDS: Multivitamins/Minerals TAB PO SCH (10:50)
[2018-07-24] MEDS: Thiamine TAB* 100 MG TAB PO SCH (10:50)
[2018-07-24] MEDS: Nicotine PATCH 21 MG/24 HR* PATCH TRANSDERM SCH (10:53)
--- NOTE | 2018-07-24 15:17 | PN ---
Subjective Date of Service: 07/24/18 Interval History: Seen with sister at bedside Pt confused today but oriented x 2, not to year Increased requirement for ativan last 24 hrs Declining or outpatient rehab services Objective Active Medications: Amlodipine Besylate (Norvasc Tab*) 10 mg PO DAILY [facility] Last Admin: 07/24/18 10:36 Dose: 10 mg Aspirin (Aspirin 81 Mg Chew Tab*) 81 mg PO DAILY [facility] Last Admin: 07/24/18 10:41 Dose: 81 mg Ferrous Sulfate (Ferrous Sulfate Tab*) 325 mg PO DAILY [facility] Last Admin: 07/24/18 10:41 Dose: 325 mg Folic Acid (Folvite Tab*) 1 mg PO DAILY [facility] Last Admin: 07/24/18 10:41 Dose: 1 mg Heparin Sodium (Porcine) (Heparin Vial(*)) 5,000 units SUBCUT Q8HR [facility] Last Admin: 07/24/18 06:06 Dose: 5,000 units Hydralazine HCl (Apresoline Iv*) 10 mg IV SLOW PU Q2H PRN PRN Reason: SYSTOLIC BP GREATER THAN: Last Admin: 07/22/18 12:25 Dose: 10 mg Lisinopril (Prinivil Tab*) 40 mg PO DAILY [facility] Last Admin: 07/24/18 10:36 Dose: 40 mg Lorazepam (Ativan Tab(*)) 0 - 6 mg PO .PER [facility] PROTOCOL [facility]; Protocol Last Admin: 07/24/18 10:36 Dose: 3 mg Multivitamins/Minerals (Theragran/Minerals Tab*) 1 tab PO DAILY [facility] Last Admin: 07/24/18 10:50 Dose: 1 tab Nicotine (Nicotine Patch 21 Mg/24 Hr*) 1 patch TRANSDERM DAILY@0800 [facility] Last Admin: 07/24/18 10:53 Dose: 1 patch Nicotine (Nicotine Inhaler*) 10 mg INH Q2H PRN PRN Reason: CRAVING Non-Formulary Medication (Ergocalciferol (Vitamin D2) [Vitamin D2]) 50 mcg PO DAILY [facility] Last Admin: 07/24/18 10:49 Dose: Not Given Ondansetron HCl (Zofran Inj*) 4 mg IV Q4H PRN PRN Reason: NAUSEA Last Admin: 07/23/18 10:02 Dose: 4 mg Oxycodone/Acetaminophen (Percocet 5/325 Tab*) 2 tab PO Q6H PRN PRN Reason: PAIN - SEVERE Last Admin: 07/22/18 18:06 Dose: 2 tab Pharmacy Profile Note (Nicotine Patch Removal Note*) 1 note FOLLOW UP 2100 [facility] Last Admin: 07/23/18 22:42 Dose: 1 note Thiamine HCl (Vitamin B-1 Tab*) 100 mg PO DAILY [facility] Last Admin: 07/24/18 10:50 Dose: 100 mg Vital Signs - 8 hr 07/24/18 07/24/18 07/24/18 07:28 08:00 08:48 Temperature 97.1 F Pulse Rate 73 Respiratory 16 21 20 Rate Blood Pressure 136/94 (mmHg) O2 Sat by Pulse 97 Oximetry 07/24/18 07/24/18 07/24/18 10:05 10:36 11:58 Temperature 97.2 F 97.2 F Pulse Rate 66 77 Respiratory 16 20 16 Rate Blood Pressure 151/103 141/97 (mmHg) O2 Sat by Pulse 96 95 Oximetry 07/24/18 07/24/18 12:45 14:08 Temperature 97.3 F Pulse Rate 108 Respiratory 18 20 Rate Blood Pressure 138/88 (mmHg) O2 Sat by Pulse 96 Oximetry Oxygen Devices in Use Now: None Appearance: disheveled, NAD Eyes: No Scleral Icterus, PERRLA Ears/Nose/Mouth/Throat: NL Teeth, Lips, Gums, Clear Oropharnyx Neck: NL Appearance and Movements; NL JVP, Trachea Midline Respiratory: Symmetrical Chest Expansion and Respiratory Effort, Clear to Auscultation Cardiovascular: RRR Abdominal: NL Sounds; No Tenderness; No Distention, No Hepatosplenomegaly Lymphatic: No Cervical Adenopathy Extremities: No Edema Neurological: - - AOx2, tremulous, moves extremities, PERRLA, EOMI Result Diagrams: 07/23/18 05:37 07/23/18 05:37 Assess/Plan/Problems-Billing Assessment: Pt is a 57yom with PMHx of HTN, alcohol abuse, left and right OA who presents after a fall with L hip pain (no fracture) uncontrolled HTN in setting of acute pain and EtOH withdrawal. - Patient Problems (1) Alcohol withdrawal Comment: - c/w WAM protocol -single dose 25mg librium on 07/23 -Continue to monitor - declining rehab (2) Hypertension Comment: -SBP elevated likely due to combination of pain and EtOH withdrawal -Continue hydralazine PRN -lisinopril and Amlodipine (3) Osteoarthritis of left hip Comment: -Consulted ortho -WBAT -PT/OT -F/u Dr. Carroll outpatient for total hip replacement -pain from fall on left hip (4) Hypokalemia Comment: replete, and trend (5) DVT prophylaxis Comment: HSQ Status and Disposition: Inpatient. Discharge when stable.
[2018-07-24] MEDS ORDERED: Mouth Piece, Nicotine* 1 EACH CARTRIDGE ONE (20:44)
[2018-07-24] MEDS: Nicotine Inhaler* 10 MG AMP INH PRN (20:47)
[2018-07-24] MEDS: Nicotine Patch Removal NOTE FOLLOW UP SCH (20:52)
[2018-07-25] MEDS: LORazepam TAB(*) 1 MG PO SCH ×4 (00:01→22:40)
[2018-07-25] MEDS: Heparin VIAL(*) 5000 UNITS/ML VIAL (FIVE THOUSAND) SUBCUT SCH ×3 (06:01→20:53)
[2018-07-25 06:38] LABS: BUN/Creatinine Ratio 17.9 (8-20); Calcium 8.7 mg/dL (8.6-10.3); EGFR African American 146.9 (>60); EGFR Non-African American 121.4 (>60); Potassium 3.4 mmol/L (3.5-5.0)
[2018-07-25] MEDS: ERGOCALCIFEROL 50 MCG PO SCH (10:19)
[2018-07-25] MEDS: Lisinopril TAB* 10 MG PO SCH (10:26)
[2018-07-25] MEDS: amLODIPine TAB* 5 MG PO SCH (10:26)
[2018-07-25] MEDS: Aspirin 81 mg CHEW TAB* 81 MG TAB.CHEW PO SCH (10:29)
[2018-07-25] MEDS: Folic Acid TAB* 1 MG PO SCH (10:29)
[2018-07-25] MEDS: Ferrous Sulfate TAB* 325 MG PO SCH (10:29)
[2018-07-25] MEDS: Thiamine TAB* 100 MG TAB PO SCH (10:29)
[2018-07-25] MEDS: Multivitamins/Minerals TAB PO SCH (10:29)
[2018-07-25] MEDS: Nicotine PATCH 21 MG/24 HR* PATCH TRANSDERM SCH (10:31)
[2018-07-25] MEDS ORDERED: Potassium Chlor TAB* 20 MEQ TAB.ER PO ONE (14:51)
--- NOTE | 2018-07-25 14:55 | PN ---
Subjective Date of Service: 07/25/18 Interval History: Seen with sister at bedside who thinks he is improving Pt has no complaints, sitting up eating/feeding self Less agitated/confused today Objective Active Medications: Amlodipine Besylate (Norvasc Tab*) 10 mg PO DAILY [facility] Last Admin: 07/25/18 10:26 Dose: 10 mg Aspirin (Aspirin 81 Mg Chew Tab*) 81 mg PO DAILY [facility] Last Admin: 07/25/18 10:29 Dose: 81 mg Ferrous Sulfate (Ferrous Sulfate Tab*) 325 mg PO DAILY [facility] Last Admin: 07/25/18 10:29 Dose: 325 mg Folic Acid (Folvite Tab*) 1 mg PO DAILY [facility] Last Admin: 07/25/18 10:29 Dose: 1 mg Heparin Sodium (Porcine) (Heparin Vial(*)) 5,000 units SUBCUT Q8HR [facility] Last Admin: 07/25/18 14:08 Dose: 5,000 units Hydralazine HCl (Apresoline Iv*) 10 mg IV SLOW PU Q2H PRN PRN Reason: SYSTOLIC BP GREATER THAN: Last Admin: 07/22/18 12:25 Dose: 10 mg Lisinopril (Prinivil Tab*) 40 mg PO DAILY [facility] Last Admin: 07/25/18 10:26 Dose: 40 mg Lorazepam (Ativan Tab(*)) 0 - 6 mg PO .PER [facility] PROTOCOL [facility]; Protocol Last Admin: 07/25/18 14:08 Dose: 2 mg Multivitamins/Minerals (Theragran/Minerals Tab*) 1 tab PO DAILY [facility] Last Admin: 07/25/18 10:29 Dose: 1 tab Nicotine (Nicotine Patch 21 Mg/24 Hr*) 1 patch TRANSDERM DAILY@0800 [facility] Last Admin: 07/25/18 10:31 Dose: 1 patch Nicotine (Nicotine Inhaler*) 10 mg INH Q2H PRN PRN Reason: CRAVING Last Admin: 07/24/18 20:47 Dose: 10 mg Non-Formulary Medication (Ergocalciferol (Vitamin D2) [Vitamin D2]) 50 mcg PO DAILY [facility] Last Admin: 07/25/18 10:19 Dose: Not Given Ondansetron HCl (Zofran Inj*) 4 mg IV Q4H PRN PRN Reason: NAUSEA Last Admin: 07/23/18 10:02 Dose: 4 mg Oxycodone/Acetaminophen (Percocet 5/325 Tab*) 2 tab PO Q6H PRN PRN Reason: PAIN - SEVERE Last Admin: 07/22/18 18:06 Dose: 2 tab Pharmacy Profile Note (Nicotine Patch Removal Note*) 1 note FOLLOW UP 2100 [facility] Last Admin: 07/24/18 20:52 Dose: 1 note Potassium Chloride (Klor Con Er Tab*) 40 meq PO ONCE ONE Stop: 07/25/18 14:52 Thiamine HCl (Vitamin B-1 Tab*) 100 mg PO DAILY [facility] Last Admin: 07/25/18 10:29 Dose: 100 mg Vital Signs - 8 hr 07/25/18 07/25/18 07/25/18 08:00 08:01 10:10 Temperature 97.1 F 97.1 F 97.4 F Pulse Rate 72 72 80 Respiratory 18 18 20 Rate Blood Pressure 135/94 135/94 147/96 (mmHg) O2 Sat by Pulse 95 95 96 Oximetry 07/25/18 07/25/18 07/25/18 11:57 11:58 14:08 Temperature 97.4 F 97.4 F Pulse Rate 88 88 Respiratory 20 20 22 Rate Blood Pressure 120/78 120/78 (mmHg) O2 Sat by Pulse 94 94 Oximetry Oxygen Devices in Use Now: None Appearance: NAD, feeding self lunch Eyes: No Scleral Icterus, PERRLA Ears/Nose/Mouth/Throat: NL Teeth, Lips, Gums, Clear Oropharnyx, - - poor dentition Neck: NL Appearance and Movements; NL JVP, Trachea Midline Respiratory: Symmetrical Chest Expansion and Respiratory Effort, Clear to Auscultation Cardiovascular: RRR Abdominal: NL Sounds; No Tenderness; No Distention, No Hepatosplenomegaly Lymphatic: No Cervical Adenopathy Extremities: No Edema Neurological: - - AOx2 to self and hospital but thnks it 1989 and November. CN2-12 intact; speech is garbled/mumbled but both sisters have said this is baseline Result Diagrams: 07/23/18 05:37 07/25/18 05:52 Assess/Plan/Problems-Billing Assessment: Pt is a 57yom with PMHx of HTN, alcohol abuse, left and right OA who presents after a fall with L hip pain (no fracture) uncontrolled HTN in setting of acute pain and EtOH withdrawal. - Patient Problems (1) Alcohol withdrawal Comment: - c/w WAM protocol -Ativan use decreased from 35 to 9 mg over last 24 hrs -Continue to monitor - declining rehab (2) Hypertension Comment: -SBP improving as withdrawal improving -Continue hydralazine PRN -lisinopril and Amlodipine (3) Osteoarthritis of left hip Comment: -Consulted ortho -WBAT -PT/OT -F/u Dr. Carroll outpatient for total hip replacement -pain from fall on left hip (4) Hypokalemia Comment: replete, and trend (5) DVT prophylaxis Comment: HSQ Status and Disposition: Inpatient. Discharge when stable.
[2018-07-25] MEDS: Nicotine Inhaler* 10 MG AMP INH PRN ×2 (16:45→20:53)
[2018-07-25] MEDS: Nicotine Patch Removal NOTE FOLLOW UP SCH (20:56)
[2018-07-26] MEDS: Heparin VIAL(*) 5000 UNITS/ML VIAL (FIVE THOUSAND) SUBCUT SCH ×3 (06:07→22:00)
[2018-07-26 06:28] LABS: ABS Basophils 0 10^3/ul (0-0.2); ABS Eosinophils 0.1 10^3/ul (0-0.6); ABS Lymphocytes 1.3 10^3/ul (1.0-4.8); ABS Monocytes 0.6 10^3/ul (0-0.8); ABS Neutrophils 3.1 10^3/ul (1.5-7.7); ABS Nucleated RBC 0 10^3/ul; Eosinophil % 1.3 %; Hematocrit 34 % (36-46); Hemoglobin 11.1 g/dL (14.0-18.0); Lymphocyte % 25.8 %; Mean Corpuscular HGB Conc 32 g/dL (31-36); Mean Corpuscular Hemoglobin 30 pg (27-31); Mean Corpuscular Volume 92 fL (80-94); Mean Platelet Volume 7.9 fL (7.4-10.4); Nucleated Red Blood Cells % 0.1; Platelet Count 204 10^3/uL (150-450); Red Blood Count 3.73 10^6 /uL (4.18-5.48); Red Cell Distribution Width 17 % (10.5-15); White Blood Count 5.1 10^3/uL (3.5-10.8)
[2018-07-26 06:48] LABS: BUN/Creatinine Ratio 16.4 (8-20); Calcium 8.9 mg/dL (8.6-10.3); EGFR African American 133.1 (>60); Magnesium 2.1 mg/dL (1.9-2.7); Potassium 4.1 mmol/L (3.5-5.0)
[2018-07-26] MEDS: LORazepam TAB(*) 1 MG PO SCH (08:32)
[2018-07-26] MEDS: amLODIPine TAB* 5 MG PO SCH (08:33)
[2018-07-26] MEDS: Nicotine PATCH 21 MG/24 HR* PATCH TRANSDERM SCH (08:33)
[2018-07-26] MEDS: Folic Acid TAB* 1 MG PO SCH (08:33)
[2018-07-26] MEDS: Thiamine TAB* 100 MG TAB PO SCH (08:33)
[2018-07-26] MEDS: Lisinopril TAB* 10 MG PO SCH (08:33)
[2018-07-26] MEDS: Multivitamins/Minerals TAB PO SCH (08:33)
[2018-07-26] MEDS: Aspirin 81 mg CHEW TAB* 81 MG TAB.CHEW PO SCH (08:33)
[2018-07-26] MEDS: Ferrous Sulfate TAB* 325 MG PO SCH (08:33)
[2018-07-26] MEDS: ERGOCALCIFEROL 50 MCG PO SCH (08:34)
[2018-07-26] MEDS ORDERED: LORazepam TAB(*) 1 MG PO SCH (10:04)
--- NOTE | 2018-07-26 16:33 | PN ---
Subjective Date of Service: 07/26/18 Interval History: Received 9 mg ativan in last 24 hours which is no change from previous 24 hrs. He is more euthymic, interacts when asked questions but very quiet which is apparently close to baseline per sisters He has no complaints Objective Active Medications: Amlodipine Besylate (Norvasc Tab*) 10 mg PO DAILY [facility] Last Admin: 07/26/18 08:33 Dose: 10 mg Aspirin (Aspirin 81 Mg Chew Tab*) 81 mg PO DAILY [facility] Last Admin: 07/26/18 08:33 Dose: 81 mg Ferrous Sulfate (Ferrous Sulfate Tab*) 325 mg PO DAILY [facility] Last Admin: 07/26/18 08:33 Dose: 325 mg Folic Acid (Folvite Tab*) 1 mg PO DAILY [facility] Last Admin: 07/26/18 08:33 Dose: 1 mg Heparin Sodium (Porcine) (Heparin Vial(*)) 5,000 units SUBCUT Q8HR [facility] Last Admin: 07/26/18 15:13 Dose: 5,000 units Hydralazine HCl (Apresoline Iv*) 10 mg IV SLOW PU Q2H PRN PRN Reason: SYSTOLIC BP GREATER THAN: Last Admin: 07/22/18 12:25 Dose: 10 mg Lisinopril (Prinivil Tab*) 40 mg PO DAILY [facility] Last Admin: 07/26/18 08:33 Dose: 40 mg Lorazepam (Ativan Tab(*)) 0 - 6 mg PO .PER [facility] PROTOCOL [facility]; Protocol Multivitamins/Minerals (Theragran/Minerals Tab*) 1 tab PO DAILY [facility] Last Admin: 07/26/18 08:33 Dose: 1 tab Nicotine (Nicotine Patch 21 Mg/24 Hr*) 1 patch TRANSDERM DAILY@0800 [facility] Last Admin: 07/26/18 08:33 Dose: 1 patch Nicotine (Nicotine Inhaler*) 10 mg INH Q2H PRN PRN Reason: CRAVING Last Admin: 07/25/18 20:53 Dose: 10 mg Non-Formulary Medication (Ergocalciferol (Vitamin D2) [Vitamin D2]) 50 mcg PO DAILY [facility] Last Admin: 07/26/18 08:34 Dose: Not Given Ondansetron HCl (Zofran Inj*) 4 mg IV Q4H PRN PRN Reason: NAUSEA Last Admin: 07/23/18 10:02 Dose: 4 mg Oxycodone/Acetaminophen (Percocet 5/325 Tab*) 2 tab PO Q6H PRN PRN Reason: PAIN - SEVERE Last Admin: 07/22/18 18:06 Dose: 2 tab Pharmacy Profile Note (Nicotine Patch Removal Note*) 1 note FOLLOW UP 2100 [facility] Last Admin: 07/25/18 20:56 Dose: 1 note Thiamine HCl (Vitamin B-1 Tab*) 100 mg PO DAILY [facility] Last Admin: 07/26/18 08:33 Dose: 100 mg Vital Signs - 8 hr 07/26/18 07/26/18 07/26/18 08:32 10:06 11:11 Temperature 97.1 F Pulse Rate 86 Respiratory 18 20 16 Rate Blood Pressure 120/83 (mmHg) O2 Sat by Pulse 96 Oximetry 07/26/18 07/26/18 07/26/18 11:56 14:19 15:35 Temperature 97.4 F 97.2 F 98.3 F Pulse Rate 76 83 81 Respiratory 16 16 16 Rate Blood Pressure 135/89 113/80 131/81 (mmHg) O2 Sat by Pulse 98 97 97 Oximetry Oxygen Devices in Use Now: None Appearance: NAD Eyes: No Scleral Icterus, PERRLA Ears/Nose/Mouth/Throat: Clear Oropharnyx, Mucous Membranes Moist Neck: NL Appearance and Movements; NL JVP, Trachea Midline Respiratory: Symmetrical Chest Expansion and Respiratory Effort, Clear to Auscultation Cardiovascular: RRR Abdominal: NL Sounds; No Tenderness; No Distention, No Hepatosplenomegaly Lymphatic: No Cervical Adenopathy Extremities: No Edema Skin: No Rash or Ulcers Neurological: - - AOx2 not to year Result Diagrams: 07/26/18 06:02 07/26/18 06:02 Assess/Plan/Problems-Billing Assessment: Pt is a 57yom with PMHx of HTN, alcohol abuse, left and right OA who presents after a fall with L hip pain (no fracture) uncontrolled HTN in setting of acute pain and EtOH withdrawal. - Patient Problems (1) Alcohol withdrawal Comment: - c/w WAM protocol -Ativan use remained stable over last 24 hrs. Decrease dosing on WAM protocol to help taper total dosage -Continue to monitor - declining rehab but will need MARIA ISABEL Osborne Pelon to review info when pt no longer WAM'ing per notes (2) Hypertension Comment: -SBP improving as withdrawal improving -lisinopril and Amlodipine (3) Osteoarthritis of left hip Comment: -Consulted ortho -WBAT -PT/OT -F/u Dr. Carroll outpatient for total hip replacement -pain from fall on left hip (4) Hypokalemia Comment: replete, and trend (5) DVT prophylaxis Comment: HSQ Status and Disposition: Inpatient. Discharge when stable.
[2018-07-26] MEDS: Nicotine Inhaler* 10 MG AMP INH PRN ×2 (17:11→21:56)
[2018-07-26] MEDS: oxyCODONE/Acetamin 5/325 MG* TAB PO PRN (21:57)
[2018-07-26] MEDS: Nicotine Patch Removal NOTE FOLLOW UP SCH (22:00)
[2018-07-27] MEDS: Heparin VIAL(*) 5000 UNITS/ML VIAL (FIVE THOUSAND) SUBCUT SCH ×3 (05:42→21:41)
[2018-07-27] MEDS ORDERED: Polyethylene Glycol 3350* 17 GM PACKET PO PRN (09:34)
[2018-07-27] MEDS: amLODIPine TAB* 5 MG PO SCH (09:40)
[2018-07-27] MEDS: Lisinopril TAB* 10 MG PO SCH (09:40)
[2018-07-27] MEDS: Folic Acid TAB* 1 MG PO SCH (09:40)
[2018-07-27] MEDS: Aspirin 81 mg CHEW TAB* 81 MG TAB.CHEW PO SCH (09:41)
[2018-07-27] MEDS: Multivitamins/Minerals TAB PO SCH (09:41)
[2018-07-27] MEDS: Ferrous Sulfate TAB* 325 MG PO SCH (09:41)
[2018-07-27] MEDS: Thiamine TAB* 100 MG TAB PO SCH (09:44)
[2018-07-27] MEDS: Nicotine PATCH 21 MG/24 HR* PATCH TRANSDERM SCH (09:45)
[2018-07-27] MEDS: ERGOCALCIFEROL 50 MCG PO SCH (09:45)
[2018-07-27] MEDS: oxyCODONE/Acetamin 5/325 MG* TAB PO PRN ×3 (12:43→21:39)
--- NOTE | 2018-07-27 15:02 | PN ---
Subjective Date of Service: 07/27/18 Interval History: Patient seen and examined, does appear confused at times. Family at bedside. Patient offers no complaints. Objective Active Medications: Amlodipine Besylate (Norvasc Tab*) 10 mg PO DAILY [facility] Last Admin: 07/27/18 09:40 Dose: 10 mg Aspirin (Aspirin 81 Mg Chew Tab*) 81 mg PO DAILY [facility] Last Admin: 07/27/18 09:41 Dose: 81 mg Ferrous Sulfate (Ferrous Sulfate Tab*) 325 mg PO DAILY [facility] Last Admin: 07/27/18 09:41 Dose: 325 mg Folic Acid (Folvite Tab*) 1 mg PO DAILY [facility] Last Admin: 07/27/18 09:40 Dose: 1 mg Heparin Sodium (Porcine) (Heparin Vial(*)) 5,000 units SUBCUT Q8HR [facility] Last Admin: 07/27/18 13:27 Dose: 5,000 units Hydralazine HCl (Apresoline Iv*) 10 mg IV SLOW PU Q2H PRN PRN Reason: SYSTOLIC BP GREATER THAN: Last Admin: 07/22/18 12:25 Dose: 10 mg Lisinopril (Prinivil Tab*) 40 mg PO DAILY [facility] Last Admin: 07/27/18 09:40 Dose: 40 mg Lorazepam (Ativan Tab(*)) 0 - 6 mg PO .PER [facility] PROTOCOL [facility]; Protocol Last Admin: 07/26/18 17:52 Dose: 2 mg Multivitamins/Minerals (Theragran/Minerals Tab*) 1 tab PO DAILY [facility] Last Admin: 07/27/18 09:41 Dose: 1 tab Nicotine (Nicotine Patch 21 Mg/24 Hr*) 1 patch TRANSDERM DAILY@0800 [facility] Last Admin: 07/27/18 09:45 Dose: 1 patch Nicotine (Nicotine Inhaler*) 10 mg INH Q2H PRN PRN Reason: CRAVING Last Admin: 07/26/18 21:56 Dose: 10 mg Non-Formulary Medication (Ergocalciferol (Vitamin D2) [Vitamin D2]) 50 mcg PO DAILY [facility] Last Admin: 07/27/18 09:45 Dose: Not Given Ondansetron HCl (Zofran Inj*) 4 mg IV Q4H PRN PRN Reason: NAUSEA Last Admin: 07/23/18 10:02 Dose: 4 mg Oxycodone/Acetaminophen (Percocet 5/325 Tab*) 2 tab PO Q6H PRN PRN Reason: PAIN - SEVERE Last Admin: 07/27/18 12:45 Dose: 1 tab Pharmacy Profile Note (Nicotine Patch Removal Note*) 1 note FOLLOW UP 2100 [facility] Last Admin: 07/26/18 22:00 Dose: 1 note Polyethylene Glycol/Electrolytes (Miralax*) 17 gm PO DAILY PRN PRN Reason: CONSTIPATION Last Admin: 07/27/18 10:45 Dose: 17 gm Thiamine HCl (Vitamin B-1 Tab*) 100 mg PO DAILY [facility] Last Admin: 07/27/18 09:44 Dose: 100 mg Vital Signs - 8 hr 07/27/18 07/27/18 07/27/18 07:41 08:00 11:15 Temperature 97.4 F 97.6 F Pulse Rate 76 99 Respiratory 18 17 18 Rate Blood Pressure 133/100 138/88 135/74 (mmHg) O2 Sat by Pulse 97 95 Oximetry 07/27/18 12:45 Temperature Pulse Rate Respiratory 16 Rate Blood Pressure (mmHg) O2 Sat by Pulse Oximetry Oxygen Devices in Use Now: None Appearance: alert, NAD Eyes: No Scleral Icterus, PERRLA Ears/Nose/Mouth/Throat: NL Teeth, Lips, Gums, Mucous Membranes Moist Neck: NL Appearance and Movements; NL JVP, Trachea Midline Respiratory: Symmetrical Chest Expansion and Respiratory Effort, Clear to Auscultation Cardiovascular: NL Sounds; No Murmurs; No JVD, RRR, No Edema Abdominal: NL Sounds; No Tenderness; No Distention, No Hepatosplenomegaly Extremities: No Edema, No Clubbing, Cyanosis Skin: No Rash or Ulcers Neurological: - - A&Ox2 Nutrition: Taking PO's Result Diagrams: 07/26/18 06:02 07/26/18 06:02 Assess/Plan/Problems-Billing Assessment: This is a 57yom with PMHx of HTN, alcohol abuse, left and right OA who presents after a fall with L hip pain (no fracture) uncontrolled HTN in setting of acute pain and EtOH withdrawal. - Patient Problems (1) Alcohol withdrawal Code(s): F10.239 - ALCOHOL DEPENDENCE WITH WITHDRAWAL, UNSPECIFIED SNOMED Code (s): 412435061 Comment: - WAM assessments DC'd, scoring 0-2 last 24 hours - Will order PRN ativan (2) Hypertension Code(s): I10 - ESSENTIAL (PRIMARY) HYPERTENSION SNOMED Code(s): 71906675 Comment: - SBP improving as withdrawal resolves - lisinopril and Amlodipine (3) Hypokalemia Code(s): E87.6 - HYPOKALEMIA SNOMED Code(s): 63743994 Comment: - Repleted/resolved (4) Osteoarthritis of left hip Code(s): M16.12 - UNILATERAL PRIMARY OSTEOARTHRITIS, LEFT HIP SNOMED Code(s): 702818619303055 Comment: - Consulted ortho, per Dr. Carroll f/u outpatient for total hip replacement - WBAT - PT/OT in setting of pain and difficulty with ambulation - Percocet PRN (5) DVT prophylaxis Code(s): XEW8747 - SNOMED Code(s): 375231310 Comment: - HSQ (6) Full code status Code(s): Z78.9 - OTHER SPECIFIED HEALTH STATUS SNOMED Code(s): 302550359 Status and Disposition: Inpatient. Referrals out for STR, medically stable for DC when bed obtained
[2018-07-27] MEDS: Nicotine Inhaler* 10 MG AMP INH PRN (21:39)
[2018-07-27] MEDS: Nicotine Patch Removal NOTE FOLLOW UP SCH (21:42)
[2018-07-28] MEDS: Heparin VIAL(*) 5000 UNITS/ML VIAL (FIVE THOUSAND) SUBCUT SCH ×3 (05:32→21:44)
[2018-07-28] MEDS ORDERED: Magnesium Hydroxide LIQ* 30 ML UDC PO PRN (08:48)
[2018-07-28] MEDS: ERGOCALCIFEROL 50 MCG PO SCH (09:25)
[2018-07-28] MEDS: Nicotine PATCH 21 MG/24 HR* PATCH TRANSDERM SCH (09:45)
[2018-07-28] MEDS: Docusate CAP* 100 MG PO SCH ×2 (09:47→19:51)
[2018-07-28] MEDS: amLODIPine TAB* 5 MG PO SCH (09:47)
[2018-07-28] MEDS: Folic Acid TAB* 1 MG PO SCH (09:47)
[2018-07-28] MEDS: Thiamine TAB* 100 MG TAB PO SCH (09:47)
[2018-07-28] MEDS: Lisinopril TAB* 10 MG PO SCH (09:47)
[2018-07-28] MEDS: Aspirin 81 mg CHEW TAB* 81 MG TAB.CHEW PO SCH (09:47)
[2018-07-28] MEDS: Ferrous Sulfate TAB* 325 MG PO SCH (09:47)
[2018-07-28] MEDS: Multivitamins/Minerals TAB PO SCH (09:47)
[2018-07-28] MEDS: Nicotine Inhaler* 10 MG AMP INH PRN ×2 (09:59→14:06)
--- NOTE | 2018-07-28 13:59 | PN ---
Subjective Date of Service: 07/28/18 Interval History: Patient seen and examined. No acute overnight events. Patient denies fever or chills, no headache or tremors. Tolerating PO. Sister at bedside. Objective Active Medications: Amlodipine Besylate (Norvasc Tab*) 10 mg PO DAILY [facility] Last Admin: 07/28/18 09:47 Dose: 10 mg Aspirin (Aspirin 81 Mg Chew Tab*) 81 mg PO DAILY [facility] Last Admin: 07/28/18 09:47 Dose: 81 mg Docusate Sodium (Colace Cap*) 100 mg PO BID [facility] Last Admin: 07/28/18 09:47 Dose: 100 mg Ferrous Sulfate (Ferrous Sulfate Tab*) 325 mg PO DAILY [facility] Last Admin: 07/28/18 09:47 Dose: 325 mg Folic Acid (Folvite Tab*) 1 mg PO DAILY [facility] Last Admin: 07/28/18 09:47 Dose: 1 mg Heparin Sodium (Porcine) (Heparin Vial(*)) 5,000 units SUBCUT Q8HR [facility] Last Admin: 07/28/18 05:32 Dose: 5,000 units Hydralazine HCl (Apresoline Iv*) 10 mg IV SLOW PU Q2H PRN PRN Reason: SYSTOLIC BP GREATER THAN: Last Admin: 07/22/18 12:25 Dose: 10 mg Lisinopril (Prinivil Tab*) 40 mg PO DAILY [facility] Last Admin: 07/28/18 09:47 Dose: 40 mg Magnesium Hydroxide (Milk Of Magnesia Liq*) 30 ml PO Q6H PRN PRN Reason: CONSTIPATION Last Admin: 07/28/18 09:49 Dose: 30 ml Multivitamins/Minerals (Theragran/Minerals Tab*) 1 tab PO DAILY [facility] Last Admin: 07/28/18 09:47 Dose: 1 tab Nicotine (Nicotine Patch 21 Mg/24 Hr*) 1 patch TRANSDERM DAILY@0800 [facility] Last Admin: 07/28/18 09:45 Dose: 1 patch Nicotine (Nicotine Inhaler*) 10 mg INH Q2H PRN PRN Reason: CRAVING Last Admin: 07/28/18 09:59 Dose: 10 mg Non-Formulary Medication (Ergocalciferol (Vitamin D2) [Vitamin D2]) 50 mcg PO DAILY [facility] Last Admin: 07/28/18 09:25 Dose: Not Given Ondansetron HCl (Zofran Inj*) 4 mg IV Q4H PRN PRN Reason: NAUSEA Last Admin: 07/23/18 10:02 Dose: 4 mg Oxycodone/Acetaminophen (Percocet 5/325 Tab*) 1 tab PO Q6H PRN PRN Reason: PAIN - SEVERE Last Admin: 07/27/18 21:39 Dose: 1 tab Pharmacy Profile Note (Nicotine Patch Removal Note*) 1 note FOLLOW UP [address] Last Admin: 07/27/18 21:42 Dose: 1 note Polyethylene Glycol/Electrolytes (Miralax*) 17 gm PO DAILY PRN PRN Reason: CONSTIPATION Last Admin: 07/27/18 10:45 Dose: 17 gm Thiamine HCl (Vitamin B-1 Tab*) 100 mg PO DAILY [facility] Last Admin: 07/28/18 09:47 Dose: 100 mg Vital Signs - 8 hr 07/28/18 07/28/18 07/28/18 07:30 08:00 11:14 Temperature 97.6 F 98.0 F Pulse Rate 88 96 Respiratory 18 18 16 Rate Blood Pressure 129/83 142/84 (mmHg) O2 Sat by Pulse 96 97 Oximetry Oxygen Devices in Use Now: None Appearance: Alert, NAD Eyes: No Scleral Icterus, PERRLA Ears/Nose/Mouth/Throat: Mucous Membranes Moist Neck: NL Appearance and Movements; NL JVP, Trachea Midline Respiratory: Symmetrical Chest Expansion and Respiratory Effort, Clear to Auscultation Cardiovascular: NL Sounds; No Murmurs; No JVD, RRR, No Edema Abdominal: NL Sounds; No Tenderness; No Distention, No Hepatosplenomegaly Extremities: No Edema, No Clubbing, Cyanosis Skin: No Rash or Ulcers Neurological: - - alert to person and place, shuffling gait noted Nutrition: Taking PO's Result Diagrams: 07/26/18 06:02 07/26/18 06:02 Assess/Plan/Problems-Billing Assessment: This is a 57yom with PMHx of HTN, alcohol abuse, left and right OA who presents after a fall with L hip pain (no fracture) uncontrolled HTN in setting of acute pain and EtOH withdrawal. - Patient Problems (1) Alcohol withdrawal Code(s): F10.239 - ALCOHOL DEPENDENCE WITH WITHDRAWAL, UNSPECIFIED SNOMED Code (s): 902614320 Comment: - WAM assessments DC'd 07/27 - Patient has not had any agitation, not requiring PO benzos (2) Hypertension Code(s): I10 - ESSENTIAL (PRIMARY) HYPERTENSION SNOMED Code(s): 30942163 Comment: - SBP improving as withdrawal resolves - lisinopril and Amlodipine (3) Hypokalemia Code(s): E87.6 - HYPOKALEMIA SNOMED Code(s): 17347389 Comment: - Repleted/resolved (4) Osteoarthritis of left hip Code(s): M16.12 - UNILATERAL PRIMARY OSTEOARTHRITIS, LEFT HIP SNOMED Code(s): 248852927140265 Comment: - Consulted ortho, per Dr. Carroll f/u outpatient for total hip replacement - WBAT - PT/OT in setting of pain and difficulty with ambulation - Percocet PRN (5) DVT prophylaxis Code(s): WWJ0209 - SNOMED Code(s): 719345422 Comment: - HSQ (6) Full code status Code(s): Z78.9 - OTHER SPECIFIED HEALTH STATUS SNOMED Code(s): 009652920 Status and Disposition: Inpatient. Pending auth for [facility]; medically stable for DC when bed obtained
[2018-07-28] MEDS: Nicotine Patch Removal NOTE FOLLOW UP SCH (21:44)
[2018-07-29] MEDS: Heparin VIAL(*) 5000 UNITS/ML VIAL (FIVE THOUSAND) SUBCUT SCH (05:12)
[2018-07-29] MEDS: Nicotine PATCH 21 MG/24 HR* PATCH TRANSDERM SCH (07:47)
[2018-07-29] MEDS: Nicotine Inhaler* 10 MG AMP INH PRN (07:48)
[2018-07-29] MEDS: Aspirin 81 mg CHEW TAB* 81 MG TAB.CHEW PO SCH (07:50)
[2018-07-29] MEDS: Ferrous Sulfate TAB* 325 MG PO SCH (07:50)
[2018-07-29] MEDS: Multivitamins/Minerals TAB PO SCH (07:50)
[2018-07-29] MEDS: amLODIPine TAB* 5 MG PO SCH (07:50)
[2018-07-29] MEDS: Thiamine TAB* 100 MG TAB PO SCH (07:50)
[2018-07-29] MEDS: Folic Acid TAB* 1 MG PO SCH (07:50)
[2018-07-29] MEDS: Lisinopril TAB* 10 MG PO SCH (07:50)
[2018-07-29] MEDS: Docusate CAP* 100 MG PO SCH (07:50)
[2018-07-29] MEDS: ERGOCALCIFEROL 50 MCG PO SCH (07:50)
[2018-07-29 07:52] VITALS: BP 147/95
--- NOTE | 2018-07-29 09:57 | DS ---
Amended report to enter cosigning physician. CC: Sherrie Luther NP; Dr. Nirmal Galeano; Dr. Joellen Carroll* DATE OF ADMISSION: 07/22/2018. DATE OF DISCHARGE: 07/29/2018. PRIMARY CARE PHYSICIAN: Sherrie [facility] NP [facility]. ATTENDING PHYSICIAN: Dr. Aleta Gonzáles* (dictated by Lesley Recinos NP ). CHIEF COMPLAINT: Fall with inability to ambulate. HOSPITAL COURSE: This is a 57-year-old male patient with a long-standing history of alcohol use and abuse, tobacco use and abuse, and hypertension. He has frequent falls and he does have complaints of severe osteoarthritis. He was brought to the emergency department after a fall and an inability to ambulate with extreme left hip pain. He was difficult to assess as the patient was quite intoxicated at the time of admission with an alcohol level of 332. He was essentially nonparticipatory in his initial admission and plan of care; however, his imaging did show initially that there was concern for an occult fracture of the left hip and the intertrochanteric region. Orthopedics was called. The patient was placed on WAM protocol for alcohol withdrawal. He was seen by Dr. Galeano who order MRI imaging of the hip to further characterize some linear showings on the hip which were questionable for this occult fracture ; however, upon evaluation with MRI, it was determined that these findings were more consistent with severe degenerative end-stage osteoarthritis. There were also similar findings in the right hip as well. At that point, orthopedics recommended pain control, immobilization, and physical therapy. The patient was scoring on the WAM protocol and receiving doses of Ativan based on his WAM numbers. His scores began to trend down over the last two to three days. The patient was able to ambulate with a walker, gait belt, and assistance with physical therapy. His pain was well controlled with pain medication. He was eventually weaned off of the WAM protocol and has been without any prn Ativan for the last 24 hours. Of significant note, the patient did have hypertensive urgency in the setting of essential hypertension and withdrawal. He did receive IV Hydralazine. Amlodipine was added to his regimen in addition to his Lisinopril. Blood pressure has been stable over the last 24 hours. An echocardiogram of the heart was also obtained given his very long history of alcohol abuse and tobacco abuse. There were not any gross abnormalities on his echo. There was some impaired relaxation and some abnormal left ventricular diastolic filling; however, his EF was greater than 65 percent and he had some trace tricuspid regurgitation. The patient did not exhibit any further symptoms. He is encephalopathic; however, he does have periods of confusions, however his behavior has not been aggressive or agitated. His encephalopathic changes are likely a combination of acute delirium from alcohol withdrawal, likely on chronic alcoholic encephalopathy. However, the patient was amenable to going to short-term rehab for which he qualified. The patient has bed acceptance at [facility]. DISCHARGE DIAGNOSES: 1. Acute alcohol withdrawal. 2. Chronic alcoholic encephalopathy, well controlled. 3. Hypertension, well controlled. 4. Hypokalemia, now resolved. 5. Fall, left hip pain secondary to severe end-stage osteoarthritis of the left hip. DISCHARGE MEDICATIONS: 1. Aspirin 81 mg p.o. daily. 2. Colace 100 mg p.o. b.i.d. 3. Folic acid 1 mg p.o. daily. 4. Lisinopril 20 mg p.o. 2 times a day. 5. Milk of Magnesia 30 ml p.o. q.6 hours as needed. 6. Theragran with minerals one tablet p.o. daily. 7. Nicotine inhaler 10 mg inhaled q.2 hours as needed. 8. Nicotine patch 21 mg per 24 hour period. 9. MiraLax 17 gm p.o. daily as needed. 10. Thiamine 100 mg p.o. daily. 11. Amlodipine 10 mg p.o. daily. 12. Percocet one tab p.o. q.6 hours as needed. 13. Ergocalciferol 50 mcg p.o. daily. 14. Ferrous Sulfate 325 mg daily. REVIEW OF SYSTEMS THE DAY OF DISCHARGE: The patient denies any fever, fatigue or chills. No chest pain, no shortness of breath. No nausea, no vomiting. No urinary complaints. He does complain of some left hip pain and difficulty with ambulation. Otherwise, no further constitutional complaints. PHYSICAL EXAMINATION TODAY: Vital Signs: Blood pressure 147/95, heart rate 80 , respiratory rate 16, O2 saturation 98 percent on room air with a temperature of 98.2. HEENT: The patient is atraumatic, normocephalic. PERRLA. Nonicteric sclerae. Oral mucosa is moist. Tongue is midline. Neck: Supple, nontender. No JVD noted. No carotid bruit auscultated. Cardiovascular: S1, S2 present. Rate and rhythm are regular. No murmurs, gallops, or rubs noted. Lungs: Clear bilaterally at the apices, slightly diminished at the bases. No appreciable wheezing, rhonchi or rales noted. Abdomen: Soft, nontender, nondistended. Positive bowel sounds all four quadrants. No hepatomegaly noted. : Deferred. Musculoskeletal: There is no clubbing and no cyanosis. No edema. He does have some point tenderness over the left hip. He does ambulate with a shuffling gait and a walker. He has +2 distal pulses palpable. Some limited range of motion bilaterally of the hips, but otherwise gross motor and sensation are intact. Neurologic: Confused at baseline, exhibiting no acute agitation and is otherwise appropriate. Psychiatric: Cooperative. LABORATORY DATA: WBC 5.1, RBC 3.73, hemoglobin 11.1, hematocrit 34, platelets 204; sodium 138, potassium 4.1, chloride 102, CO2 32, BUN 12, creatinine 0.73, GFR 110, glucose 103, calcium 8.9, magnesium 2.1, bilirubin 0.40, AST 26, ALT 13 , alk phos 63, total protein 5.9, albumin 3.9, globulin 2.0, albumin/globulin ratio 2.0; INR 0.93; alcohol level at admission 332. IMAGING STUDIES: 1. Echocardiogram as noted above. 2. CT of the brain dated 07/21/2018 shows no traumatic intracranial abnormalities, age related atrophy with mild chronic small vessel ischemic disease. 3. MRI of the hip dated 07/21/2018: Impression: Severe left and right mild right hip primary arthritis. Initial read was subtle occult left femoral intertrochanteric fracture; however, the progress note from Dr. Galeano's evaluation states that he has reviewed the x-rays and MRI and discussed with Radiology, Dr. Harrison, that the imaging is most consistent with severe left hip arthritis. There is no signal on T2 MRI at the IT region to suggest an occult fracture. The line is seen on T1 which is similar on the right hip. FOLLOW-UP: The patient was instructed to follow-up with his primary care provider [facility] after he is discharged from rehab. He was also instructed to follow-up with Dr. Joellen Carroll of Orthopedics to consider whether the patient is a candidate for a left total hip arthroplasty. DIET: Heart healthy as tolerated. ACTIVITY: Progress as tolerated. TIME SPENT: Approximately 35 minutes interviewing the patient and discussing plan of care, planning medications and follow-ups. DISPOSITION: Discharged via stretcher/ambulance transport to [facility] in stable condition. LESLEY RECINOS NP [id number]/CPS #: [id number] SHERYL
[2018-07-29] MEDS: oxyCODONE/Acetamin 5/325 MG* TAB PO PRN (10:18)
== END 2018-07-29 12:15 | DRG 351 ==
LOC: ED 18:04 → SSU 07-22 00:02 → MED 07-23 15:59
PROVIDERS: ADMIT Internal Medicine; ATTEND Internal Medicine
DX: M16.0 Bilateral primary osteoarthritis of hip (principal); F10.231 Alcohol dependence with withdrawal delirium; G31.2 Degeneration of nervous system due to alcohol; F10.229 Alcohol dependence with intoxication, unspecified; I16.0 Hypertensive urgency; Y90.8 Blood alcohol level of 240 mg/100 ml or more; I10 Essential (primary) hypertension; E87.6 Hypokalemia; D50.9 Iron deficiency anemia, unspecified; M25.552 Pain in left hip; E55.9 Vitamin D deficiency, unspecified; F17.210 Nicotine dependence, cigarettes, uncomplicated; M25.511 Pain in right shoulder; M65.88 Other synovitis and tenosynovitis, other site; W18.30XA Fall on same level, unspecified, initial encounter; Y92.9 Unspecified place or not applicable; Z91.81 History of falling; Z79.82 Long term (current) use of aspirin; Z79.899 Other long term (current) drug therapy; Z80.1 Family history of malignant neoplasm of trachea, bronchus and lung; Z82.49 Family history of ischemic heart disease and other diseases of the circulatory system; Z84.1 Family history of disorders of kidney and ureter
CPT/HCPCS: 36415; 70450; 80048; 80053; 80320; 83735; 85025; 85027; 85610; 93005; 93306; 99284; A9270-GY; G0480; J0360; J1644; J2270; J2405; J3475

== ENCOUNTER 2018-10-23 18:28 | Inpatient (IN) | payer OTHER ==
[2018-10-23] MEDS ORDERED: Thiamine IV 100 MG, Folic Acid IV* 1 MG, Multiple Vitamin IV ADULT* 10 ML in D5NS 0.9% ... IV ONE (18:42)
--- NOTE | 2018-10-23 18:48 | ED ---
GI/ HPI - HPI Summary HPI Summary: A 57 y/o male accompanied by sister Gabriella presents to [facility] with a chief complaint of hematemesis on 10/23/18. His other sister checked in on the Pt at home, and he was vomiting and said that he wanted to come to the ED. The patient had vomited about 400 mls dark red blood [employer]. The patient is an alcoholic, and drank vodka today. The patient has not been to rehab. He has pain in his hip and RLQ. He notes that he had brown stool on 10/22/18. He sees Nae Luther at the [facility]. He notes that he has a bad left hip (bone on bone). On 07/22/18 his H&H were 11.1 and 34. He denies any current fever. He has not had an endoscopy or colonoscopy or a blood transfusion done per his sister. Sister does not know for sure, but does not think that pt has varices. Vital signs while in room: HR 88 bpm, BP 144/106, O2 Sat: 95% - History of Current Complaint Chief Complaint: EDGIBleed Stated Complaint: VOMITING BLOOD PER SISTER Hx Obtained From: Patient, Family/Lsw - sister Onset/Duration: Started Hours Ago, Still Present Timing: Intermittent, Lasting Minutes Severity: Mild Current Severity: None Pain Intensity: 0 Location of Pain: RLQ - lower Pain Characteristics: Unable to describe Associated Signs and Symptoms: Positive: Hematemesis, Vomiting. Negative: Fever Aggravating Factor(s): Nothing Alleviating Factor(s): Nothing - Additional Pertinent History Primary Care Physician: [id number] - Allergy/Home Medications Allergies/Adverse Reactions: Allergies Allergy/AdvReac Type Severity Reaction Status Date / Time No Known Allergies Allergy Verified 06/15/17 17:27 PMH/Surg Hx/FS Hx/Imm Hx Previously Healthy: No Cardiovascular History: Reports: Hx Hypertension Denies: Hx Pacemaker/ICD GI History: Reports: Hx Cirrhosis Musculoskeletal History: Reports: Hx Arthritis Sensory History: Reports: Hx Contacts or Glasses - glasses Denies: Hx Legally Blind, Hx Hearing Aid Opthamlomology History: Reports: Hx Contacts or Glasses - glasses Denies: Hx Legally Blind Psychiatric History: Reports: Hx Anxiety, Hx Depression, Hx Substance Abuse - Etoh abuse Denies: Hx Attention Deficit Hyperactivity Disorder, Hx Eating Disorder, Hx Panic Disorder, Hx Post Traumatic Stress Disorder, Hx Inpatient Treatment, Hx Community Mental Health Tx, Hx Schizophrenia, Hx Bipolar Disorder, Hx Suicide Attempt, Hx of Violent Episodes Against Others Infectious Disease History: No Infectious Disease History: Denies: Traveled Outside the [place] in Last 30 Days - Family History Known Family History: Negative: Cardiac Disease, Diabetes Family History: Pt denies any family history. - Social History Lives: Alone Alcohol Use: Daily Alcohol Amount: pt will not admit to it per sister Hx Substance Use: No Substance Use Type: Reports: None Hx Tobacco Use: Yes Smoking Status (MU): Light Every Day Tobacco Smoker Type: Cigarettes Review of Systems Negative: Fever Negative: Epistaxis Negative: Palpitations, Chest Pain Negative: Shortness Of Breath, Cough Positive: Abdominal Pain, Vomiting, Other - positive: hematemesis Positive: no symptoms reported Musculoskeletal: Negative Skin: Negative Positive: Slurred Speech Psychological: Other - intoxicated All Other Systems Reviewed And Are Negative: Yes Physical Exam - Summary Physical Exam Summary: Appearance: Ill-appearing, no pain distress, well-nourished, appears intoxicated , odor similar to alcohol present Skin: Warm, color reflects adequate perfusion, dry Head: Normal Head/Face inspection, atraumatic Eyes: Conjunctiva clear, no jaundice ENT: Normal inspection Neck: Supple, no nodes, no JVD Respiratory: Lungs clear, normal breath sounds, no respiratory distress Cardio: RRR, No murmur, pulses normal, brisk capillary refill Abdomen: Soft, nontender, no masses, nondistended Bowel sounds: Present Musculoskeletal: Strength Intact/ROM intact, no calf tenderness, no edema. Psychological: Normal Neuro: Alert, muscle tone normal, no focal deficit Rectal: nontender, brown stool with GRAHAM Limon as nurse wound care Triage Information Reviewed: Yes Vital Signs On Initial Exam: Initial Vitals Temp Pulse Resp BP Pulse Ox 98.5 F 96 18 137/102 95 10/23/18 18:29 10/23/18 18:29 10/23/18 18:29 10/23/18 18:29 10/23/18 18:29 Vital Signs Reviewed: Yes Diagnostics - Vital Signs Vital Signs Temp Pulse Resp BP Pulse Ox 10/23/18 18:29 98.5 F 96 18 137/102 95 - Laboratory Result Diagrams: 10/24/18 01:49 10/23/18 19:04 Lab Statement: Any lab studies that have been ordered have been reviewed, and results considered in the medical decision making process. - EKG 18:54 Cardiac Rate: NL - 83 bpm EKG Rhythm: Sinus Rhythm ST Segment: Non-Specific Ectopy: None EKG Comparison: No Significant Change - c/w 07/21/18 Summary of EKG Findings: An EKG at 18:54 reveals SR, nml AV/IV CT, nml QTc, and LAD -46. No acute changes. ED MD has reviewed and interpreted this EKG. Re-Evaluation - Re-Evaluation First Eval Re-Evaluation Time: 20:15 Change: Unchanged - pt's sister present. Advised pt will be admitted to ICU. No further vomiting in ED. GIGU Course/Dx - Course Course Of Treatment: A 57 y/o male accompanied by sister Gabriella presents to [facility] with a chief complaint of hematemesis on 10/23/18. Pt is a chronic alcoholic and his alcohol level is 230. The physical exam revealed that the rectal exam was nontender, and he had brown stool, guaiac neg. Abdomen soft, nontender. An EKG at 18:54 reveals SR nml AV/IV CT, nml QTc, and LAD -46. No acute changes. ED MD has reviewed and interpreted this EKG. In the ED course the patient was given 50 mcg Octreotide Acetate IV at 20:58, 51 mls Octreotide Acetate 50 mcg in Sodium Chloride at 21:45, 8mg Zofran IV at 20:43 and 80mg Protonix IV at 20: 58 and protonix drip. Bloodwork, chemistries, urines and toxicology obtained. 12.8 Hgb, 136 glucose and 182 B-Natriuretic Peptide at 19:04. Serum alcohol of 240 at 19:04. Urine Protein 2+, Urine Blood 1+, Urine RBC 3+, Ur Squamous Epith Cells present, Urine bacteria 1+, Hyaline Casts present, and urine glucose 1+ at 19:45. Pt medications reviewed this visit (difficult to know meds, and pt cannot recall, and pt's sister does not know). Nurses notes reviewed. Allergies noted. Discussed case with Dr. Cho, who will consult on patient. Discussed case with Dr. Levy, hospitalist, who accepted the patient for admission. The patient is agreeable with this plan. - Diagnoses Differential Diagnoses - Male: Constipation, Diverticulitis, Blood Dyscrasia, Enterocolitis, Esophagitis/Gastritis, Esophageal Varices, Gastritis, Peptic Ulcer Disease, Sepsis Provider Diagnoses: Upper GI bleed, Alcohol intoxication, Chronic alcohol abuse - Physician Notifications Discussed Care Of Patient With: Jass Cho Time Discussed With Above Provider: 20:05 Instructed by Provider To: Other - will consult on patient - Critical Care Time Critical Care Time: 30-74 min - 30mins Discharge - Sign-Out/Discharge Documenting (check all that apply): Patient Departure - admit Patient Received Moderate/Deep Sedation with Procedure: No - Discharge Plan Condition: Fair Disposition: ADMITTED TO [facility] - Billing Disposition and Condition Condition: FAIR Disposition: Admitted to [facility] - Attestation Statements Document Initiated by Vadim: Yes Documenting Scribe: Marco A Cottrell Provider For Whom Vadim is Documenting (Include Credential): Kathryn Summers MD Scribe Attestation: Marco A Brown scribed for Kathryn Summers MD on 10/24/18 at 0308. Scribe Documentation Reviewed: Yes Provider Attestation: The documentation as recorded by the Marco A walter accurately reflects the service I personally performed and the decisions made by , Kathryn Summers MD Status of Scribalvina Document: Viewed Consult Consult: At 20:[address] Levy, hospitalist, who accepted the patient for admission.
[2018-10-23 19:13] LABS: ABS Basophils 0.1 10^3/ul (0-0.2); ABS Eosinophils 0.1 10^3/ul (0-0.6); ABS Monocytes 0.6 10^3/ul (0-0.8); ABS Neutrophils 4.4 10^3/ul (1.5-7.7); Hematocrit 39 % (42-52); Hemoglobin 12.8 g/dL (14.0-18.0); Lymphocyte % 15.9 %; Mean Corpuscular HGB Conc 33 g/dL (31-36); Mean Corpuscular Hemoglobin 29 pg (27-31); Mean Corpuscular Volume 87 fL (80-94); Mean Platelet Volume 7.6 fL (7.4-10.4); Nucleated Red Blood Cells % 0.1; Platelet Count 283 10^3/uL (150-450); Red Blood Count 4.46 10^6 /uL (4.18-5.48); Red Cell Distribution Width 18 % (10-15); White Blood Count 6.1 10^3/uL (3.5-10.8)
[2018-10-23 19:22] LABS: Activated Partial Thrombo Time 30.9 seconds (26.0-38.0); INR 0.91 (0.82-1.09)
[2018-10-23 19:31] LABS: ALT 11 U/L (7-52); AST 14 U/L (13-39); Albumin 3.8 g/dL (3.2-5.2); Albumin/Globulin Ratio 1.5 (1-3); Alkaline Phosphatase 76 U/L (34-104); Amylase 61 U/L (29-103); Anion Gap 9 mmol/L (2-11); BUN/Creatinine Ratio 14.9 (8-20); Blood Urea Nitrogen 15 mg/dL (6-24); C Reactive Protein < 1.00 mg/L (<8.01); CO2 Carbon Dioxide 28 mmol/L (22-32); Chloride 105 mmol/L (101-111); Creatine Kinase 52 U/L (10-223); EGFR African American 91.5 (>60); EGFR Non-African American 75.6 (>60); Globulin 2.6 g/dL (2-4); Glucose 136 mg/dL (70-100); Magnesium 2.3 mg/dL (1.9-2.7); Potassium 4.1 mmol/L (3.5-5.0); Sodium 142 mmol/L (135-145); Total Protein 6.4 g/dL (6.4-8.9); Troponin I 0.01 ng/mL (<0.04)
[2018-10-23 19:37] LABS: Alcohol 230 mg/dL (<10)
[2018-10-23 19:43] LABS: BNP 182 pg/mL (<=100)
[2018-10-23 20:00] LABS: Urine Appearance Cloudy; Urine Bacteria 1+ (Absent); Urine Bilirubin Negative (Negative); Urine Blood 1+ (Negative); Urine Color Yellow; Urine Glucose 1+(50 mg/dL) (Negative); Urine Ketones Negative (Negative); Urine Nitrite Negative (Negative); Urine Protein 2+(100 mg/dL) (Negative); Urine Red Blood Cell 3+(>10/hpf) (Absent); Urine Specific Gravity 1.011 (1.010-1.030); Urine Squamous Epithelial Cell Present (Absent); Urine Urobilinogen Negative (Negative); Urine White Blood Cell Trace(0-5/hpf) (Absent)
[2018-10-23] MEDS ORDERED: Ondansetron INJ* 2 MG/ML VIAL IV ONE (20:43)
[2018-10-23] MEDS ORDERED: Lorazepam PYXIS KEY PRN (20:47)
[2018-10-23] MEDS ORDERED: Octreotide Acetate* 500 MCG/ML 1 ML VIAL IV ONE (20:58)
[2018-10-23] MEDS ORDERED: Pantoprazole IV* 40 MG IV ONE (20:58)
[2018-10-23] MEDS ORDERED: Octreotide Acetate* 500 MCG in NS 0.9% 100 ML* 100 ML IV SCH (21:00)
[2018-10-23] MEDS ORDERED: Octreotide Acetate* 50 MCG/ML ML IV ONE (21:30)
[2018-10-23] MEDS: Pantoprazole* 80 mg IN NS 80 MG/250 ML BAG IV SCH (21:38)
[2018-10-23] MEDS ORDERED: Octreotide Acetate* 50 MCG in NS 0.9% 50 ML* 50 ML IV ONE ×4 (21:45)
--- NOTE | 2018-10-23 22:22 | HP ---
CC: Sherrie Luther NP HISTORY AND PHYSICAL: DATE OF ADMISSION: 10/23/18 PRIMARY CARE PROVIDER: Sherrie Luther NP CHIEF COMPLAINT: Vomiting blood. HISTORY OF PRESENT ILLNESS: Mr. Markham is a 57-year-old male with longstanding history of alcohol abu se, ongoing tobacco abuse, hypertension, and iron-deficiency anemia, who presented to the emergency r oom after he began to vomit on the evening of admission. The patient reportedly was vomiting up dark red blood. There is a full specimen cup of bloody vomit in the bathroom in the ER. The patient is unable to tell me specifically when the vomiting started or how many times he has vomited. He denies any abdominal pain. He is unable to tell me if he takes any NSAIDs. His prior hospitalization in [facility] 2018 revealed him to be on aspirin. Admission from that hospitalization revealed him to be on me loxicam; he is unable to tell me if he is still taking this. PAST MEDICAL HISTORY: 1. Alcohol abuse. 2. Hypertension. 3. Severe left hip osteoarthritis. 4. Ongoing tobacco abuse. 5. Iron-deficiency anemia. PAST SURGICAL HISTORY: None. MEDICATIONS: Unknown. ALLERGIES: No known drug allergies. FAMILY HISTORY: Mom at the age of 82 of kidney failure. Dad in his 60s of lung cancer. SOCIAL HISTORY: The patient currently smokes cigarettes when he can get them or cigars. He tells me he drinks 1 shot every 2 hours or so; however, his sister indicates that it is likely much more than that. He lives alone. He is not . He has 2 children. His sister, Shannon Mora, phone number [phone] would be his health care proxy. REVIEW OF SYSTEMS: A complete 11-system review of systems is obtained. Pertinent positives and nega tives are as per HPI and otherwise negative except the patient does state that he fell sometime in e last couple of days, hitting his face and forearm where he sustained lacerations above the right ey ebrow and on the forearm. PHYSICAL EXAMINATION GENERAL: The patient is a well-developed, middle-aged male, seen lying in stretcher somewhat squirmy , but in no acute distress. VITAL SIGNS: Blood pressure 143/89, pulse 77, respirations 18, temp 98.0, O2 sat 96% on room air. HEENT: Pupils are equal and round. Extraocular muscles are intact. Oropharynx is clear. Oral muco sa is moist. The patient has poor dentition. There is no submandibular, cervical, or supraclavicula r adenopathy. Thyroid is not enlarged. No thyroid nodules noted. PULMONARY: Lungs are clear to auscultation bilaterally. CARDIAC: Normal S1, S2. Regular rate and rhythm. I do not appreciate any murmurs. ABDOMEN: Bowel sounds are present. Abdomen is soft, nontender, nondistended. MUSCULOSKELETAL: The patient moves all 4 extremities symmetrically. There is no cyanosis or clubbin g of the digits. NEURO: Cranial nerves II through XII appeared to be grossly intact. Sensation appears to be intact to light touch throughout and strength also appears to be normal. PSYCH: The patient is alert. He is confused. SKIN: Warm and dry. There are no rashes. There is a crescent shaped laceration above the right eye brow and a linear laceration to the right forearm. These are scabbed. DIAGNOSTIC STUDIES/LAB DATA: WBC 6.1, hemoglobin 12.8, hematocrit 39, platelets 283. INR 0.91. So dium 142, potassium 4.1, chloride 105, CO2 of 28, BUN 15, creatinine 1.01, glucose 136, lactic 1.5, c alcium 9.0, magnesium 2.3, bilirubin 0.3. AST 14, ALT 11, alk phos 76, ammonia 39. CPK 52, troponin 0.01. CRP less than 1. BNP 182. Albumin 3.8. Amylase 61, lipase 50. Urinalysis revealed cloudy urine with specific gravity of 1.011, 2+ protein, 1+ blood, 3+ rbc's, 1+ bacteria and present hyaline casts. Serum alcohol 230. EKG reveals sinus rhythm without any acute ST-T wave abnormalities. ASSESSMENT AND PLAN: Mr. Markham is a 57-year-old male with history of alcoholism, who presents to the emergency room with complaints of vomiting blood. 1. Hematemesis. Differential on this would be gastric or duodenal ulcer possibly related to aspirin and maybe NSAID use, though I am unable to obtain history of NSAID use. Additionally, the patient h as never been evaluated for varices and this seems to be a strong possibility. Because of this, the patient will be receiving Protonix 80 mg IV x1 followed by a drip at 8 mg/hr and octreotide 50 mcg IV 1 followed by an octreotide drip at 25 mcg/hr. Dr. Cho has been called by Dr. Summers in the ER. He will be seeing the patient in consultation. The patient will likely need endoscopy. I am going to keep him n.p.o. at this time. The patient has also had a second IV placed and 2 peripheral IVs s hould be maintained at all times. 2. Alcohol abuse. The patient's alcohol level at this point is 230. I suspect he will begin to wit hdraw relatively soon. I am going to start him on WAM protocol every 2 hours with IV Ativan. 3. Tobacco abuse. We will start nicotine patch 14 mg topically. 4. DVT prophylaxis. According to the adult thrombosis prophylaxis risk factor assessment guide, the patient has a total risk factor score of 2 making him moderate risk. He will have SCDs alone as DVT prophylaxis given the gastrointestinal bleed. 5. Code status is full. TIME SPENT: Sixty-five minutes was spent admitting this patient. [id number]/[facility] #: [id number]
[2018-10-23] MEDS: Nicotine Patch Removal NOTE FOLLOW UP SCH (23:36)
[2018-10-23] MEDS: Nicotine PATCH 14 MG/24 HR* PATCH TRANSDERM SCH (23:55)
[2018-10-24] MEDS ORDERED: Octreotide Acetate* 500 MCG in NS 0.9% 100 ML* 100 ML IV SCH (01:30)
[2018-10-24] MEDS: hydrALAZINE IV* 20 MG/ML VIAL IV SLOW PU PRN ×2 (01:34→16:33)
[2018-10-24 02:01] LABS: Hematocrit 35 % (42-52); Hemoglobin 11.6 g/dL (14.0-18.0)
[2018-10-24 03:18] LABS: Hepatitis C Antibody Negative (Negative)
[2018-10-24 05:42] LABS: Hematocrit 36 % (42-52); Hemoglobin 11.7 g/dL (14.0-18.0)
[2018-10-24] MEDS: Pantoprazole* 80 mg IN NS 80 MG/250 ML BAG IV SCH ×2 (06:11→16:40)
[2018-10-24] MEDS: LORazepam INJ* 2 MG/ML 1 ML VIAL IV PUSH PRN ×2 (08:28→16:33)
[2018-10-24] MEDS: Thiamine IV* 100 MG/ML 2 ML VIAL IV SCH (08:29)
[2018-10-24] MEDS: Nicotine PATCH 14 MG/24 HR* PATCH TRANSDERM SCH (08:44)
[2018-10-24] MEDS: Hydrocortisone 1% CREAM* 30 GM TUBE TOPICAL SCH ×2 (08:45→22:15)
[2018-10-24] MEDS: Nystatin CREAM* 15 GM TUBE TOPICAL SCH ×2 (08:45→22:15)
[2018-10-24] MEDS: Morphine INJ* 2 MG/ML 1 ML SYRINGE (TWO MG - NEW SYRINGE VERSION) IV PRN ×2 (10:22→19:42)
[2018-10-24] MEDS: Lactated Ringers 1000 ML Bag* 1,000 ML IV SCH ×2 (10:29→21:45)
[2018-10-24] MEDS ORDERED: fentaNYL* 50 MCG/ML 2 ML VIAL (100 MCG VIAL) ONE (11:06)
[2018-10-24] MEDS ORDERED: Midazolam* 1 MG/ML 10 ML VIAL (10 MG) ONE (11:06)
--- NOTE | 2018-10-24 11:09 | PN ---
Subjective Date of Service: 10/24/18 Interval History: Mr. Markham is feeling well today. He is not happy to be NPO and is very thirsty. He reports one episode of vomiting prior to coming to the ED. No further emesis or nausea. Denies CP, SOB. He reports drinking 2 shots per week. He does admit to taking 2 regular strength aspirin daily for pain. No concerns from nursing. Family History: Unchanged from Admission Social History: Unchanged from Admission Past Medical History: Unchanged from Admission Objective Active Medications: Hydralazine HCl (Apresoline Iv*) 10 mg IV SLOW PU Q6H PRN SBP>170 Hydrocortisone (Hytone Cream 1%*) 1 applic TOPICAL BID [facility] Pantoprazole Sodium (Protonix Iv Bag*) 80 mg in 250 mls @ 25 mls/hr IV Q10H [facility] Octreotide Acetate 500 mcg/ (Sodium Chloride) 101 mls @ 5.05 mls/hr IV Q20H [facility] Lactated Ringer's (Lactated Ringers 1000 Ml Bag*) 1,000 mls @ 100 mls/hr IV PER RATE [facility] Lorazepam (Ativan Inj*) 0 mg IV PUSH Q2H PRN; Protocol alcohol withdrawal Morphine Sulfate (Morphine Inj (Syringe))*) 2 mg IV Q4H PRN PAIN Nicotine (Nicotine Patch 14 Mg/24 Hr*) 1 patch TRANSDERM DAILY [facility] Nystatin (Nystatin Cream*) 1 applic TOPICAL BID [facility] Ondansetron HCl (Zofran Inj*) 4 mg IV Q6H PRN NAUSEA Thiamine HCl (Vitamin B1 Iv*) 100 mg IV DAILY [facility] Vital Signs - 8 hr 10/24/18 10/24/18 10/24/18 03:14 04:00 05:00 Temperature 99.0 F Pulse Rate 81 86 Respiratory 16 21 18 Rate Blood Pressure 148/91 162/110 (mmHg) O2 Sat by Pulse 94 97 Oximetry 10/24/18 10/24/18 10/24/18 05:23 06:00 07:00 Temperature Pulse Rate 80 73 Respiratory 16 13 19 Rate Blood Pressure 165/101 (mmHg) O2 Sat by Pulse 96 95 Oximetry 10/24/18 10/24/18 10/24/18 07:25 07:40 08:00 Temperature 98.9 F Pulse Rate 76 Respiratory 19 18 Rate Blood Pressure 155/110 (mmHg) O2 Sat by Pulse 95 Oximetry 10/24/18 10/24/18 10/24/18 08:02 08:28 08:33 Temperature Pulse Rate 99 97 Respiratory 6 20 17 Rate Blood Pressure 168/113 (mmHg) O2 Sat by Pulse 94 96 Oximetry 10/24/18 10/24/18 10/24/18 09:00 10:00 10:22 Temperature Pulse Rate 88 77 Respiratory 17 31 22 Rate Blood Pressure 165/98 (mmHg) O2 Sat by Pulse 95 95 Oximetry 10/24/18 10:26 Temperature Pulse Rate 85 Respiratory 28 Rate Blood Pressure 158/109 (mmHg) O2 Sat by Pulse 97 Oximetry Oxygen Devices in Use Now: None Appearance: Middle-aged male sitting in chair in NAD Eyes: No Scleral Icterus Ears/Nose/Mouth/Throat: Mucous Membranes Moist Neck: NL Appearance and Movements; NL JVP, Trachea Midline Respiratory: Symmetrical Chest Expansion and Respiratory Effort, Clear to Auscultation Cardiovascular: NL Sounds; No Murmurs; No JVD, RRR Abdominal: NL Sounds; No Tenderness; No Distention Extremities: No Edema Skin: No Rash or Ulcers Neurological: Alert and Oriented x 3 Lines/Tubes/Other Access: Clean, Dry and Intact Peripheral IV Result Diagrams: 10/24/18 05:25 10/23/18 19:04 Assess/Plan/Problems-Billing Assessment: Mr. Markham is a 57 yo M with PMH of HTN, etoh abuse, and ID anemia; who presented to the ED with c/o coffee ground emesis and was admitted for concern for upper GI bleed. - Patient Problems (1) Upper GI bleed Code(s): K92.2 - GASTROINTESTINAL HEMORRHAGE, UNSPECIFIED Comment: - Reported 400mL of dark red emesis prior to arrival to the ED - H&H stable - Concern for aspirin/NSAID overuse or esophageal varices - Appreciate GI consult; NPO for likely EGD today - Continue pantoprazole, octreotide, IVF (2) Alcohol withdrawal Code(s): F10.239 - ALCOHOL DEPENDENCE WITH WITHDRAWAL, UNSPECIFIED Comment: - Family reports 1L of alcohol per day - No history of withdrawal seizures - WAM protocol with lorazepam - Start scheduled lorazepam q8h, hold for oversedation, and reevaluate need for additional lorazepam tomorrow (3) Nicotine dependence Code(s): F17.200 - NICOTINE DEPENDENCE, UNSPECIFIED, UNCOMPLICATED Comment: - Encourage cessation - Continue nicotine patch (4) Hypertension Code(s): I10 - ESSENTIAL (PRIMARY) HYPERTENSION Comment: - Hypertensive, SBP 150-160s; likely in part d/t alcohol withdrawal - Not on outpatient medication - Will continue to monitor and consider starting antihypertensive agents if BP remains elevated after he has withdrawn (5) DVT prophylaxis Comment: - SCDs only in the setting of GI bleed (6) Full code status Code(s): Z78.9 - OTHER SPECIFIED HEALTH STATUS Comment: Status and Disposition: Inpatient. Anticipate d/c home when medically stable, timeframe unknown. Attending: John Latham
--- NOTE | 2018-10-24 12:14 | PN ---
Progress Note - Progress Note Date of Service: 10/24/18 Note: Gi Brief EGD Note: Esophagus: LA-D ulcerative esophagus throughout entire esophagus. No active bleeding Gastric: large Hiatal hernia 36-45cm, non bleeding shelia erosions. 3 small gastric ulcers in antrum. Clean based Duodenum: NML Rec: ppi gtt x 72 hours, then BID therapy x 3 months time Will need repeat EGD in 3 months time Complete cessation of ETOH Cessation of NSAIDS (aspirin) Can advance diet as tolerated on 10/25 if no signs of rebleeding and H/H stable. Change to PO BID therapy on 10/26. Alcohol withdrawl per primary team Jass Cho DO 6
[2018-10-24 12:42] LABS: ABS Basophils 0.1 10^3/ul (0-0.2); ABS Eosinophils 0.1 10^3/ul (0-0.6); ABS Monocytes 0.7 10^3/ul (0-0.8); ABS Neutrophils 4.1 10^3/ul (1.5-7.7); Eosinophil % 1.3 %; Hematocrit 35 % (42-52); Hemoglobin 11.4 g/dL (14.0-18.0); Lymphocyte % 16.4 %; Mean Corpuscular HGB Conc 33 g/dL (31-36); Mean Corpuscular Hemoglobin 29 pg (27-31); Mean Corpuscular Volume 87 fL (80-94); Mean Platelet Volume 7.8 fL (7.4-10.4); Nucleated Red Blood Cells % 0.1; Platelet Count 258 10^3/uL (150-450); Red Blood Count 3.99 10^6 /uL (4.18-5.48); Red Cell Distribution Width 19 % (10-15); White Blood Count 5.8 10^3/uL (3.5-10.8)
[2018-10-24 12:56] LABS: BUN/Creatinine Ratio 13.1 (8-20); Calcium 8.7 mg/dL (8.6-10.3); EGFR African American 113.2 (>60); EGFR Non-African American 93.5 (>60)
--- NOTE | 2018-10-24 13:02 | CONS ---
CC: Sherrie Luther NP * CONSULTATION REPORT: DATE OF CONSULT: 10/24/18 PRIMARY NURSE PRACTITIONER: Sherrie Luther NP REASON FOR CONSULT: Hematemesis. HISTORY OF PRESENT ILLNESS: This is a 57-year-old male with a longstanding history of alcohol abuse, presenting to the emergency room with hematemesis. He was found to have a blood alcohol level of over 200. He is a poor historian ; however, he admits to some nausea and retching prior to the hematemesis and then it developed shortly afterwards. He denies any abdominal discomfort. Currently denies any nausea or emesis. He has had no further episodes since being in the emergency room. He denies any black or blood in the stool. Does admit to taking aspirin at home; however, was reluctant to admit. Denies any dysphagia or odynophagia. He admits to a weight loss of about 10 pounds over the last 2 months. Denies any diarrhea, constipation. The remainder of the 14- point review of systems is grossly negative. PAST MEDICAL HISTORY: Alcohol abuse, hypertension, osteoarthritis, tobacco abuse, iron-deficiency anemia. PAST SURGICAL HISTORY: None. MEDICATIONS: Aspirin at home. Unknown if any others. ALLERGIES: No known drug allergies. FAMILY HISTORY: No family history of GI cancer or IBD. SOCIAL HISTORY: Supplemented by family members at bedside including the healthcare proxy, Shannon Mora, her phone number is [phone]. She states that he drinks about a shot every couple hours at times to more than that. Denies any illicit drugs. He smokes cigarettes. REVIEW OF SYSTEMS: A 14-point review of systems is grossly negative except for as described in the HPI. PHYSICAL EXAM: Vital Signs: Blood pressure is 158/109, pulse 86, respiratory rate is 28, 97% on room air, and he is 99.1 for T-max. General: Disheveled, chronically ill-appearing. HEENT: Atraumatic, normocephalic. Pupils equal, round, reactive to light. Extraocular movements are intact. Conjunctivae are pink. Sclerae are anicteric. Cardiovascular: Regular rate and rhythm. S1, S2. Respiratory: Grossly clear to auscultation bilaterally. Abdomen: Soft, nontender, nondistended. Bowel sounds positive. Extremities: Scattered ecchymoses throughout, but no clubbing, cyanosis, or edema. Psych: Flat affect. LABORATORY DATA: Hemoglobin on presentation 12.8, today is 11.7. INR is 0.91. Bilirubin 0.3, AST 14, ALT 11. Platelet count is 283. Serum alcohol on presentation was 230. Hepatitis C antibody is negative. ASSESSMENT AND PLAN: This is a 57-year-old male with history of alcohol abuse, presenting with hematemesis. 1. Hematemesis. He was started on Protonix and octreotide drip in the emergency room. Less likely to have variceal bleed given normal INR and no thrombocytopenia; however, certainly possible and reasonable to continue octreotide and pantoprazole until etiology established. Suspect with retching, Helga-Seals versus ulcerative esophagitis would be high in the differential. We will plan on upper endoscopy today to evaluate source. We would recommend continuing H and H every 6 hours and continuing the pantoprazole IV drip and octreotide. In addition if any nausea, I would recommend antiemetic therapy. 2. Alcohol abuse, longstanding. The patient has tried rehab in the past and immediately went home and drank according to his sister. Overall prognosis is poor if he continues this pattern. We will have primary team involve Social Work. 3. Poor historian and given recent alcohol abuse along with Ativan therapy, we will obtain consent from the healthcare proxy, Shannon Mora, in addition to the patient. [id number]/[facility] #: [id number] MTDJanice
[2018-10-24] MEDS: LORazepam INJ* 2 MG/ML 1 ML VIAL IV PUSH SCH ×2 (13:42→22:15)
--- NOTE | 2018-10-24 13:59 | PRO ---
CC: Sherrie Luther NP * ESOPHAGOGASTRODUODENOSCOPY REPORT: DATE OF PROCEDURE: 10/24/18 - ROOM #418 PRIMARY NURSE PRACTITIONER: Sherrie Luther NP INDICATIONS FOR PROCEDURE: Hematemesis. PROCEDURE PERFORMED: Complete esophagogastroduodenoscopy. MEDICATIONS GIVEN: Include 9 mg IV midazolam, 50 mcg IV fentanyl. DESCRIPTION OF PROCEDURE: After the EGD procedure including the risks, benefits , and alternatives with the risks not limited to perforation, surgery, missed lesions, and/or were explained to the patient. Written and informed consent was obtained from both the patient and the healthcare proxy, Shannon Mora. He was given Ativan for his prior alcohol withdrawal. All questions were answered for both the patient and the healthcare proxy. Next IV sedation was given and a bite block was placed between the teeth. The adult Olympus gastroscope was then inserted into the patient's oropharynx into the tubular esophagus. The tubular esophagus had LA-D erosive esophagitis with ulcerations throughout. No active bleeding was noted. The scope was advanced through the lower esophageal sphincter into the stomach. There was a large hiatal hernia from 36 cm to 45 cm. On retroflexion in the stomach a few scattered Weston erosions nonbleeding were noted. The scope was then advanced to the antrum. Three small gastric ulcers were appreciated about 0.4 cm in appearance and clean based. No fresh oral blood was visualized within the stomach. The scope was then advanced through the widely patent pylorus into the duodenal bulb, C- loop, distal duodenum; these were normal in appearance. The scope was then removed from the patient, he tolerated the procedure well. He returned to the recovery room in stable condition. IMPRESSION: 1. Complete esophagogastroduodenoscopy. 2. LA-D erosive esophagitis with ulcerations. 3. Large hiatal hernia with associated Weston erosions. 4. Gastric ulcerations x3, clean based as above. RECOMMENDATIONS: Protonix drip should be continued for 72 hours given the multiple etiologies as above. After that time frame, he should be switched to a p.o. b.i.d. therapy for a total of 3 months' time and a repeat EGD is performed. In addition, he needs complete cessation of alcohol. I suspect that this has lead to a significant portion of his erosive esophagitis. It puts him at further risk for cirrhosis and complications in the future. We will place him on full liquids today. His diet could be advanced as tolerated on 10/25/18 if there are no signs of overt bleeding and his hemoglobin remains stable. In addition, recommend involving social work to see if there is any potential rehab options available for the patient. However, he has not done well there in the past and has extremely poor insight into the complications of his drinking. [id number]/[facility] #: [id number] MTDJanice
[2018-10-24] MEDS: Nicotine Patch Removal NOTE FOLLOW UP SCH (22:18)
[2018-10-25] MEDS: LORazepam INJ* 2 MG/ML 1 ML VIAL IV PUSH PRN ×3 (00:50→18:19)
[2018-10-25] MEDS: Pantoprazole* 80 mg IN NS 80 MG/250 ML BAG IV SCH ×2 (03:13→14:31)
[2018-10-25] MEDS: LORazepam INJ* 2 MG/ML 1 ML VIAL IV PUSH SCH ×3 (04:45→21:54)
[2018-10-25 07:33] LABS: ABS Eosinophils 0.2 10^3/ul (0-0.6); ABS Lymphocytes 1.3 10^3/ul (1.0-4.8); ABS Monocytes 0.7 10^3/ul (0-0.8); ABS Neutrophils 3.1 10^3/ul (1.5-7.7); Eosinophil % 2.8 %; Hematocrit 34 % (42-52); Hemoglobin 11.2 g/dL (14.0-18.0); Lymphocyte % 24.8 %; Mean Corpuscular HGB Conc 34 g/dL (31-36); Mean Corpuscular Hemoglobin 29 pg (27-31); Mean Corpuscular Volume 86 fL (80-94); Mean Platelet Volume 7.7 fL (7.4-10.4); Platelet Count 230 10^3/uL (150-450); Red Blood Count 3.93 10^6 /uL (4.18-5.48); Red Cell Distribution Width 19 % (10-15); White Blood Count 5.4 10^3/uL (3.5-10.8)
[2018-10-25] MEDS: Nicotine PATCH 14 MG/24 HR* PATCH TRANSDERM SCH (10:08)
[2018-10-25] MEDS: Nystatin CREAM* 15 GM TUBE TOPICAL SCH ×2 (10:09→21:54)
[2018-10-25] MEDS: Hydrocortisone 1% CREAM* 30 GM TUBE TOPICAL SCH ×2 (10:09→21:54)
[2018-10-25] MEDS: Lactated Ringers 1000 ML Bag* 1,000 ML IV SCH ×3 (10:10→21:54)
[2018-10-25] MEDS: Thiamine IV 100 MG in NS 0.9% 50 ML Q24H IV SCH (12:28)
[2018-10-25] MEDS: Thiamine IV* 100 MG/ML 2 ML VIAL IV SCH (12:53)
--- NOTE | 2018-10-25 13:34 | PN ---
Subjective Date of Service: 10/25/18 Interval History: Patient answers yes/no questions only. He has no complaints. Denies abdo pain. He does not remember yesterday. Family History: Unchanged from Admission Social History: Unchanged from Admission Past Medical History: Unchanged from Admission Objective Active Medications: Hydralazine HCl (Apresoline Iv*) 10 mg IV SLOW PU Q6H PRN PRN Reason: SBP>170 Last Admin: 10/24/18 16:33 Dose: 10 mg Hydrocortisone (Hytone Cream 1%*) 1 applic TOPICAL BID [facility] Last Admin: 10/25/18 10:09 Dose: 1 applic Pantoprazole Sodium (Protonix Iv Bag*) 80 mg in 250 mls @ 25 mls/hr IV Q10H [facility] Last Admin: 10/25/18 03:13 Dose: 25 mls/hr Lactated Ringer's (Lactated Ringers 1000 Ml Bag*) 1,000 mls @ 100 mls/hr IV PER RATE [facility] Last Admin: 10/25/18 10:10 Dose: 100 mls/hr Thiamine HCl 100 mg/ Sodium (Chloride) 51 mls @ 102 mls/hr IV Q24H [facility] Last Admin: 10/25/18 12:28 Dose: 102 mls/hr Lorazepam (Ativan Inj*) 0 mg IV PUSH Q2H PRN; Protocol PRN Reason: alcohol withdrawal Last Admin: 10/25/18 12:28 Dose: 1 mg Lorazepam (Ativan Inj*) 1 mg IV PUSH Q8H [facility] Last Admin: 10/25/18 04:45 Dose: 1 mg Miscellaneous (Ativan Pyxis Smith) 1 ea N/A .ATIVAN IV SMITH PRN PRN Reason: PYXIS SMITH Morphine Sulfate (Morphine Inj (Syringe))*) 2 mg IV Q4H PRN PRN Reason: PAIN Last Admin: 10/24/18 19:42 Dose: 2 mg Nicotine (Nicotine Patch 14 Mg/24 Hr*) 1 patch TRANSDERM DAILY [facility] Last Admin: 10/25/18 10:08 Dose: 1 patch Nystatin (Nystatin Cream*) 1 applic TOPICAL BID [facility] Last Admin: 10/25/18 10:09 Dose: 1 applic Ondansetron HCl (Zofran Inj*) 4 mg IV Q6H PRN PRN Reason: NAUSEA Pharmacy Profile Note (Nicotine Patch Removal Note*) 1 note FOLLOW UP 2100 [facility] Last Admin: 10/24/18 22:18 Dose: 1 note Vital Signs - 8 hr 10/25/18 10/25/18 10/25/18 06:00 06:47 08:05 Temperature 35.9 C 36.9 C Pulse Rate 58 64 Respiratory 18 16 20 Rate Blood Pressure 151/93 161/102 (mmHg) O2 Sat by Pulse 99 98 Oximetry 10/25/18 10/25/18 10/25/18 08:12 09:46 12:28 Temperature 36.7 C Pulse Rate 73 Respiratory 20 18 16 Rate Blood Pressure 156/107 (mmHg) O2 Sat by Pulse 98 Oximetry Oxygen Devices in Use Now: None Appearance: alert, no distress Eyes: No Scleral Icterus Ears/Nose/Mouth/Throat: NL Teeth, Lips, Gums Neck: NL Appearance and Movements; NL JVP, No Thyroid Enlargement, Masses Respiratory: Symmetrical Chest Expansion and Respiratory Effort Cardiovascular: NL Sounds; No Murmurs; No JVD Abdominal: NL Sounds; No Tenderness; No Distention, No Hepatosplenomegaly Lines/Tubes/Other Access: Clean, Dry and Intact Peripheral IV Nutrition: Taking PO's Result Diagrams: 10/25/18 07:13 10/24/18 12:25 Microbiology and Other Data: Microbiology 10/23/18 19:45 Urine Culture - Final Urine No Growth (<1,000 CFU/mL) 10/23/18 22:00 Nasal Screen MRSA (PCR) - Final Nasal Mrsa Not Detected 10/23/18 18:51 Stool Occult Blood (WEI) - Final Stool Assess/Plan/Problems-Billing Assessment: Mr. Markham is a 57 yo M with PMH of HTN, etoh abuse, and iron-def anemia; who presented to the ED with c/o coffee-ground emesis. - Patient Problems (1) Esophageal ulcer with bleeding Current Visit: Yes Status: Acute Priority: High Comment: -HGB appears stable, will trend -Appreciate GI consult and endoscopy results -Will continue Protonix drip for 72 hours, then consider switch to PO (2) Peptic ulcer disease with hemorrhage Current Visit: Yes Status: Acute Priority: High Code(s): K27.4 - CHRONIC OR UNSP PEPTIC ULCER, SITE UNSP, WITH HEMORRHAGE SNOMED Code(s): 47957630 Comment: see above (3) Alcohol withdrawal Current Visit: No Status: Acute Priority: Medium Code(s): F10.239 - ALCOHOL DEPENDENCE WITH WITHDRAWAL, UNSPECIFIED SNOMED Code(s): 523725771 Comment: - Family reports 1L of alcohol per day - No history of withdrawal seizures - Receiving lorazepam PRN for WAM scores (4) DVT prophylaxis Current Visit: No Status: Acute Priority: Low Code(s): SFU3266 - SNOMED Code(s): 806685801 Comment: - SCDs only in the setting of GI bleed Status and Disposition: Inpatient. Anticipate d/c home when medically stable, timeframe unknown.
[2018-10-25] MEDS: Morphine INJ* 2 MG/ML 1 ML SYRINGE (TWO MG - NEW SYRINGE VERSION) IV PRN (15:13)
[2018-10-25] MEDS: Nicotine Patch Removal NOTE FOLLOW UP SCH (21:55)
[2018-10-26] MEDS: hydrALAZINE IV* 20 MG/ML VIAL IV SLOW PU PRN ×3 (01:07→20:59)
[2018-10-26] MEDS: Pantoprazole* 80 mg IN NS 80 MG/250 ML BAG IV SCH ×4 (02:29→15:49)
[2018-10-26] MEDS: LORazepam INJ* 2 MG/ML 1 ML VIAL IV PUSH SCH ×3 (06:34→20:59)
[2018-10-26 06:50] LABS: Hematocrit 35 % (42-52); Hemoglobin 11.9 g/dL (14.0-18.0)
[2018-10-26] MEDS: LORazepam INJ* 2 MG/ML 1 ML VIAL IV PUSH PRN ×3 (08:50→16:33)
[2018-10-26] MEDS: Nicotine PATCH 14 MG/24 HR* PATCH TRANSDERM SCH (08:52)
[2018-10-26] MEDS: Nystatin CREAM* 15 GM TUBE TOPICAL SCH ×2 (08:54→21:03)
[2018-10-26] MEDS: Hydrocortisone 1% CREAM* 30 GM TUBE TOPICAL SCH ×2 (08:54→21:03)
[2018-10-26] MEDS: Thiamine IV 100 MG in NS 0.9% 50 ML Q24H IV SCH (12:48)
[2018-10-26] MEDS: Lactated Ringers 1000 ML Bag* 1,000 ML IV SCH ×2 (12:52→20:58)
--- NOTE | 2018-10-26 13:58 | PN ---
Subjective Date of Service: 10/26/18 Interval History: Patient not able to account for himself. He answers questions yes/no, but is confused. He complained earlier of inability to urinate. Bladder scan showed ~[address] Maria passed maher after nursing was unable. Family History: Unchanged from Admission Social History: Unchanged from Admission Past Medical History: Unchanged from Admission Objective Active Medications: Hydralazine HCl (Apresoline Iv*) 10 mg IV SLOW PU Q6H PRN PRN Reason: SBP>170 Last Admin: 10/26/18 13:00 Dose: 10 mg Hydrocortisone (Hytone Cream 1%*) 1 applic TOPICAL BID [facility] Last Admin: 10/26/18 08:54 Dose: 1 applic Lactated Ringer's (Lactated Ringers 1000 Ml Bag*) 1,000 mls @ 100 mls/hr IV PER RATE [facility] Last Admin: 10/26/18 12:52 Dose: 100 mls/hr Thiamine HCl 100 mg/ Sodium (Chloride) 51 mls @ 102 mls/hr IV Q24H [facility] Last Admin: 10/26/18 12:48 Dose: 102 mls/hr Pantoprazole Sodium (Protonix Iv Bag*) 80 mg in 250 mls @ 25 mls/hr IV Q10H [facility] Lorazepam (Ativan Inj*) 0 mg IV PUSH Q2H PRN; Protocol PRN Reason: alcohol withdrawal Last Admin: 10/26/18 08:50 Dose: 4 mg Lorazepam (Ativan Inj*) 1 mg IV PUSH Q8H [facility] Last Admin: 10/26/18 12:48 Dose: 1 mg Miscellaneous (Ativan Pyxis Jackman) 1 ea N/A .ATIVAN IV JACKMAN PRN PRN Reason: PYXIS JACKMAN Morphine Sulfate (Morphine Inj (Syringe))*) 2 mg IV Q4H PRN PRN Reason: PAIN Last Admin: 10/25/18 15:13 Dose: 2 mg Nicotine (Nicotine Patch 14 Mg/24 Hr*) 1 patch TRANSDERM DAILY [facility] Last Admin: 10/26/18 08:52 Dose: 1 patch Nystatin (Nystatin Cream*) 1 applic TOPICAL BID [facility] Last Admin: 10/26/18 08:54 Dose: 1 applic Ondansetron HCl (Zofran Inj*) 4 mg IV Q6H PRN PRN Reason: NAUSEA Pharmacy Profile Note (Nicotine Patch Removal Note*) 1 note FOLLOW UP 2100 [facility] Last Admin: 10/25/18 21:55 Dose: 1 note Vital Signs - 8 hr 10/26/18 10/26/18 10/26/18 06:00 06:34 07:13 Temperature 36.8 C 36.4 C Pulse Rate 116 74 Respiratory 20 18 16 Rate Blood Pressure 162/115 144/98 (mmHg) O2 Sat by Pulse 100 98 Oximetry 10/26/18 10/26/18 10/26/18 07:55 08:15 08:50 Temperature 36.9 C Pulse Rate 83 Respiratory 22 16 18 Rate Blood Pressure 160/113 (mmHg) O2 Sat by Pulse 99 Oximetry 10/26/18 10/26/18 10/26/18 09:49 12:02 12:48 Temperature 36.7 C Pulse Rate 71 Respiratory 16 16 18 Rate Blood Pressure 174/109 (mmHg) O2 Sat by Pulse 99 Oximetry Oxygen Devices in Use Now: None Appearance: awake, alert Eyes: No Scleral Icterus Neck: Trachea Midline Respiratory: Clear to Auscultation Cardiovascular: NL Sounds; No Murmurs; No JVD, RRR Abdominal: NL Sounds; No Tenderness; No Distention Neurological: - - cooperative Lines/Tubes/Other Access: Clean, Dry and Intact Peripheral IV Nutrition: Taking PO's Result Diagrams: 10/26/18 06:29 10/24/18 12:25 Microbiology and Other Data: Microbiology 10/23/18 22:00 Nasal Nasal Screen MRSA (PCR) - Final Mrsa Not Detected 10/23/18 19:45 Urine Urine Culture - Final No Growth (<1,000 CFU/mL) 10/23/18 18:51 Stool Stool Occult Blood (WEI) - Final Assess/Plan/Problems-Billing Assessment: Mr. Markham is a 57 yo M with PMH of HTN, etoh abuse, and iron-def anemia; who presented to the ED with c/o coffee-ground emesis. - Patient Problems (1) Esophageal ulcer with bleeding Current Visit: Yes Status: Acute Priority: High Comment: -HGB appears stable -Appreciate GI consult and endoscopy results -Will continue Protonix drip for 72 hours, then consider switch to PO tomorrow (2) Peptic ulcer disease with hemorrhage Current Visit: Yes Status: Acute Priority: High Code(s): K27.4 - CHRONIC OR UNSP PEPTIC ULCER, SITE UNSP, WITH HEMORRHAGE SNOMED Code(s): 29643231 Comment: see above (3) Alcohol withdrawal Current Visit: No Status: Acute Priority: Medium Code(s): F10.239 - ALCOHOL DEPENDENCE WITH WITHDRAWAL, UNSPECIFIED SNOMED Code(s): 500460457 Comment: - Family reports 1L of alcohol per day - risk of seizures and DTs present - Receiving lorazepam PRN for WAM scores (4) DVT prophylaxis Current Visit: No Status: Acute Priority: Low Code(s): YMB7725 - SNOMED Code(s): 695574287 Comment: - SCDs only in the setting of GI bleed (5) Urinary retention Current Visit: Yes Status: Acute Priority: Medium Code(s): R33.9 - RETENTION OF URINE, UNSPECIFIED SNOMED Code(s): 710610717 Comment: -Appreciate urology assistance -Will start flomax -Will need urology f/u in 1-2 weeks Status and Disposition: Inpatient. Anticipate d/c home when medically stable, timeframe unknown. Counseling and/or Coordination of Care Minutes: spoke with sister who lives in [facility]
[2018-10-26] MEDS: Morphine INJ* 2 MG/ML 1 ML SYRINGE (TWO MG - NEW SYRINGE VERSION) IV PRN (16:33)
[2018-10-26 19:06] LABS: Urine Appearance Cloudy; Urine Bacteria Absent (Absent); Urine Bilirubin Negative (Negative); Urine Blood 2+ (Negative); Urine Color Yellow; Urine Glucose Negative (Negative); Urine Ketones Negative (Negative); Urine Nitrite Negative (Negative); Urine Protein Negative (Negative); Urine Red Blood Cell 2+(6-10/hpf) (Absent); Urine Specific Gravity 1.009 (1.010-1.030); Urine Urobilinogen Positive (Negative); Urine White Blood Cell 1+(6-10/hpf) (Absent)
[2018-10-26] MEDS: Tamsulosin CAP* 0.4 MG PO SCH (20:59)
[2018-10-26] MEDS: Nicotine Patch Removal NOTE FOLLOW UP SCH (21:03)
[2018-10-27] MEDS: Morphine INJ* 2 MG/ML 1 ML SYRINGE (TWO MG - NEW SYRINGE VERSION) IV PRN ×2 (02:01→11:10)
[2018-10-27] MEDS: Pantoprazole* 80 mg IN NS 80 MG/250 ML BAG IV SCH ×2 (02:01→14:05)
[2018-10-27] MEDS: LORazepam INJ* 2 MG/ML 1 ML VIAL IV PUSH SCH ×2 (05:05→14:05)
[2018-10-27] MEDS: hydrALAZINE IV* 20 MG/ML VIAL IV SLOW PU PRN (05:05)
[2018-10-27 07:02] LABS: ABS Eosinophils 0.2 10^3/ul (0-0.6); ABS Lymphocytes 1.2 10^3/ul (1.0-4.8); ABS Monocytes 0.7 10^3/ul (0-0.8); ABS Neutrophils 3.6 10^3/ul (1.5-7.7); Eosinophil % 2.7 %; Hematocrit 36 % (42-52); Lymphocyte % 20.8 %; Mean Corpuscular HGB Conc 34 g/dL (31-36); Mean Corpuscular Hemoglobin 28 pg (27-31); Mean Corpuscular Volume 85 fL (80-94); Mean Platelet Volume 7.9 fL (7.4-10.4); Platelet Count 235 10^3/uL (150-450); Red Blood Count 4.24 10^6 /uL (4.18-5.48); Red Cell Distribution Width 19 % (10-15); White Blood Count 5.6 10^3/uL (3.5-10.8)
[2018-10-27 07:39] LABS: BUN/Creatinine Ratio 5.8 (8-20); Calcium 8.9 mg/dL (8.6-10.3); EGFR Non-African American 117.4 (>60); Magnesium 1.7 mg/dL (1.9-2.7); Potassium 3.2 mmol/L (3.5-5.0)
[2018-10-27] MEDS: Hydrocortisone 1% CREAM* 30 GM TUBE TOPICAL SCH ×2 (09:45→21:35)
[2018-10-27] MEDS: Lactated Ringers 1000 ML Bag* 1,000 ML IV SCH ×2 (09:45→23:21)
[2018-10-27] MEDS: Nicotine PATCH 14 MG/24 HR* PATCH TRANSDERM SCH (09:45)
[2018-10-27] MEDS: Nystatin CREAM* 15 GM TUBE TOPICAL SCH ×2 (10:52→21:35)
[2018-10-27] MEDS: Thiamine IV 100 MG in NS 0.9% 50 ML Q24H IV SCH (11:47)
[2018-10-27] MEDS ORDERED: Potassium Chlor TAB* 20 MEQ TAB.ER PO ONE (15:28)
--- NOTE | 2018-10-27 15:45 | PN ---
Subjective Date of Service: 10/27/18 Interval History: Has no complaints Denies anxiety, N/V, LH, diaphoresis, tremor, hallucinations Still requiring PRN ativan on WA Family History: Unchanged from Admission Social History: Unchanged from Admission Past Medical History: Unchanged from Admission Objective Active Medications: Hydralazine HCl (Apresoline Iv*) 10 mg IV SLOW PU Q6H PRN PRN Reason: SBP>170 Last Admin: 10/27/18 05:05 Dose: 10 mg Hydrocortisone (Hytone Cream 1%*) 1 applic TOPICAL BID [facility] Last Admin: 10/27/18 09:45 Dose: 1 applic Lactated Ringer's (Lactated Ringers 1000 Ml Bag*) 1,000 mls @ 100 mls/hr IV PER RATE [facility] Last Admin: 10/27/18 09:45 Dose: 100 mls/hr Thiamine HCl 100 mg/ Sodium (Chloride) 51 mls @ 102 mls/hr IV Q24H [facility] Last Admin: 10/27/18 11:47 Dose: 102 mls/hr Lorazepam (Ativan Inj*) 0 mg IV PUSH Q2H PRN; Protocol PRN Reason: alcohol withdrawal Last Admin: 10/26/18 16:33 Dose: 2 mg Miscellaneous (Ativan Pyxis Smith) 1 ea N/A .ATIVAN IV SMITH PRN PRN Reason: PYXIS SMITH Nicotine (Nicotine Patch 14 Mg/24 Hr*) 1 patch TRANSDERM DAILY [facility] Last Admin: 10/27/18 09:45 Dose: 1 patch Nystatin (Nystatin Cream*) 1 applic TOPICAL BID [facility] Last Admin: 10/27/18 10:52 Dose: 1 applic Ondansetron HCl (Zofran Inj*) 4 mg IV Q6H PRN PRN Reason: NAUSEA Pantoprazole Sodium (Protonix Tab*) 40 mg PO BID [facility] Pharmacy Profile Note (Nicotine Patch Removal Note*) 1 note FOLLOW UP 2100 [facility] Last Admin: 10/26/18 21:03 Dose: 1 note Tamsulosin HCl (Flomax Cap*) 0.4 mg PO BEDTIME [facility] Last Admin: 10/26/18 20:59 Dose: 0.4 mg Vital Signs - 8 hr 10/27/18 10/27/18 10/27/18 07:54 08:00 10:00 Temperature 97.0 F 97.8 F Pulse Rate 79 70 Respiratory 19 18 17 Rate Blood Pressure 134/96 161/96 (mmHg) O2 Sat by Pulse 97 Oximetry 10/27/18 10/27/18 10/27/18 11:10 12:00 14:05 Temperature 97.4 F Pulse Rate 65 Respiratory 16 18 20 Rate Blood Pressure 110/53 (mmHg) O2 Sat by Pulse Oximetry 10/27/18 14:21 Temperature Pulse Rate Respiratory 16 Rate Blood Pressure (mmHg) O2 Sat by Pulse Oximetry Oxygen Devices in Use Now: None Appearance: thin, disheveled, no distress Eyes: No Scleral Icterus, PERRLA Ears/Nose/Mouth/Throat: NL Teeth, Lips, Gums, Clear Oropharnyx Neck: NL Appearance and Movements; NL JVP, Trachea Midline Respiratory: Symmetrical Chest Expansion and Respiratory Effort, Clear to Auscultation Cardiovascular: NL Sounds; No Murmurs; No JVD, RRR Abdominal: NL Sounds; No Tenderness; No Distention Lymphatic: No Cervical Adenopathy Extremities: No Edema Neurological: Alert and Oriented x 3, - - tremo with hands outstretched Result Diagrams: 10/27/18 06:33 10/27/18 06:33 Microbiology and Other Data: Microbiology 10/23/18 22:00 Nasal Nasal Screen MRSA (PCR) - Final Mrsa Not Detected 10/23/18 19:45 Urine Urine Culture - Final No Growth (<1,000 CFU/mL) 10/23/18 18:51 Stool Stool Occult Blood (WEI) - Final Assess/Plan/Problems-Billing Assessment: Mr. Markham is a 57 yo M with PMH of HTN, etoh abuse, and iron-def anemia; who presented to the ED with c/o coffee-ground emesis found with multiple esophageal and gastric ulcers - Patient Problems (1) Alcohol withdrawal Comment: - Family reports 1L of alcohol per day - Receiving lorazepam PRN for WAM scores -d/c TID standing ativan 10/27 -dc morphine IV PRN -c/w LR -replace potassium losses (2) Esophageal ulcer with bleeding Comment: -Hgb stable -Appreciate GI consult and endoscopy results -d/c Protonix drip 10/27 and starting PO (3) Peptic ulcer disease with hemorrhage Comment: see above, PO PPI, repeat EGD in 3 months (4) Urinary retention Comment: -Appreciate urology assistance -now on flomax -Will need urology f/u in 1-2 weeks (5) DVT prophylaxis Comment: - SCDs only in the setting of GI bleed Status and Disposition: Inpatient. Anticipate d/c home when medically stable, timeframe unknown.
[2018-10-27] MEDS: Tamsulosin CAP* 0.4 MG PO SCH (21:35)
[2018-10-27] MEDS: Pantoprazole TAB * 40 MG TAB PO SCH (21:35)
[2018-10-27] MEDS: Nicotine Patch Removal NOTE FOLLOW UP SCH (21:36)
[2018-10-28] MEDS: LORazepam INJ* 2 MG/ML 1 ML VIAL IV PUSH PRN ×4 (04:08→22:11)
[2018-10-28 06:41] LABS: Hematocrit 33 % (42-52); Hemoglobin 11.3 g/dL (14.0-18.0)
[2018-10-28] MEDS: Pantoprazole TAB * 40 MG TAB PO SCH ×2 (09:41→21:53)
[2018-10-28] MEDS: Hydrocortisone 1% CREAM* 30 GM TUBE TOPICAL SCH ×2 (09:41→22:09)
[2018-10-28] MEDS: Nystatin CREAM* 15 GM TUBE TOPICAL SCH ×2 (09:41→22:09)
[2018-10-28] MEDS: Nicotine PATCH 14 MG/24 HR* PATCH TRANSDERM SCH (09:41)
[2018-10-28] MEDS: Lactated Ringers 1000 ML Bag* 1,000 ML IV SCH ×2 (10:58→23:55)
[2018-10-28] MEDS: Thiamine IV 100 MG in NS 0.9% 50 ML Q24H IV SCH (11:37)
[2018-10-28] MEDS: hydrALAZINE IV* 20 MG/ML VIAL IV SLOW PU PRN (13:15)
--- NOTE | 2018-10-28 15:06 | PN ---
Subjective Date of Service: 10/28/18 Interval History: Has no requests or complaints although is still scoring on the WAM and requiring ativan IV Denies anxiety, tremors, diaphoresis, JOHNSON, N/V hallucinations Family History: Unchanged from Admission Social History: Unchanged from Admission Past Medical History: Unchanged from Admission Objective Active Medications: Acetaminophen (Tylenol Tab*) 650 mg PO Q6H PRN PRN Reason: PAIN Hydralazine HCl (Apresoline Iv*) 10 mg IV SLOW PU Q6H PRN PRN Reason: SBP>170 Last Admin: 10/28/18 13:15 Dose: 10 mg Hydrocortisone (Hytone Cream 1%*) 1 applic TOPICAL BID [facility] Last Admin: 10/28/18 09:41 Dose: 1 applic Lactated Ringer's (Lactated Ringers 1000 Ml Bag*) 1,000 mls @ 100 mls/hr IV PER RATE [facility] Last Admin: 10/28/18 10:58 Dose: 100 mls/hr Thiamine HCl 100 mg/ Sodium (Chloride) 51 mls @ 102 mls/hr IV Q24H [facility] Last Admin: 10/28/18 11:37 Dose: 102 mls/hr Lorazepam (Ativan Inj*) 0 mg IV PUSH Q2H PRN; Protocol PRN Reason: alcohol withdrawal Last Admin: 10/28/18 04:08 Dose: 2 mg Miscellaneous (Ativan Pyxis Smith) 1 ea N/A .ATIVAN IV SMITH PRN PRN Reason: PYXIS SMITH Nicotine (Nicotine Patch 14 Mg/24 Hr*) 1 patch TRANSDERM DAILY [facility] Last Admin: 10/28/18 09:41 Dose: 1 patch Nystatin (Nystatin Cream*) 1 applic TOPICAL BID [facility] Last Admin: 10/28/18 09:41 Dose: 1 applic Ondansetron HCl (Zofran Inj*) 4 mg IV Q6H PRN PRN Reason: NAUSEA Pantoprazole Sodium (Protonix Tab*) 40 mg PO BID [facility] Last Admin: 10/28/18 09:41 Dose: 40 mg Pharmacy Profile Note (Nicotine Patch Removal Note*) 1 note FOLLOW UP 2100 [facility] Last Admin: 10/27/18 21:36 Dose: 1 note Tamsulosin HCl (Flomax Cap*) 0.4 mg PO BEDTIME [facility] Last Admin: 10/27/18 21:35 Dose: 0.4 mg Vital Signs - 8 hr 06/26/19 06/26/19 06/26/19 07:15 08:00 09:59 Temperature 97 F 97.3 F Pulse Rate 63 58 Respiratory 15 16 16 Rate Blood Pressure 144/88 176/97 (mmHg) O2 Sat by Pulse 97 99 Oximetry 10/28/18 13:08 Temperature 97.4 F Pulse Rate 69 Respiratory 16 Rate Blood Pressure 172/110 (mmHg) O2 Sat by Pulse 97 Oximetry Oxygen Devices in Use Now: None Appearance: disheveled, NAD Eyes: No Scleral Icterus, PERRLA Ears/Nose/Mouth/Throat: NL Teeth, Lips, Gums Neck: NL Appearance and Movements; NL JVP, Trachea Midline Respiratory: Symmetrical Chest Expansion and Respiratory Effort, Clear to Auscultation Cardiovascular: NL Sounds; No Murmurs; No JVD, RRR Abdominal: NL Sounds; No Tenderness; No Distention, No Hepatosplenomegaly Lymphatic: No Cervical Adenopathy Extremities: No Edema Skin: No Rash or Ulcers Neurological: Alert and Oriented x 3 - Nutrition: Malnutrition Diagnosis/Plan Malnutrition Assessment by Registered Dietitian: Malnutrition Assessment Clinical Characteristics Chronic,Severe Malnutrition Assessment: >7.5% wt loss x 3 mos Criteria </=50% of EEE >5 days Malnutrition Assessment: Ensure Enlive BID (350 kcals, 20g pro each) Interventions Malnutrition Assessment: Goals 1. adequate intake to support hydration and lean body mass without add'l wt loss 2. maintain serum electrolytes WNL 3. regulation of bowel pattern; no c/o constipation (or diarrhea) Result Diagrams: 10/28/18 05:47 10/27/18 06:33 Microbiology and Other Data: Microbiology 10/23/18 22:00 Nasal Nasal Screen MRSA (PCR) - Final Mrsa Not Detected 10/23/18 19:45 Urine Urine Culture - Final No Growth (<1,000 CFU/mL) 10/23/18 18:51 Stool Stool Occult Blood (WEI) - Final Assess/Plan/Problems-Billing Assessment: Mr. Markham is a 57 yo M with PMH of HTN, etoh abuse, and iron-def anemia; who presented to the ED with c/o coffee-ground emesis found with multiple esophageal and gastric ulcers - Patient Problems (1) Alcohol withdrawal Comment: - Family reports 1L of alcohol per day - Receiving lorazepam PRN for WAM scores -d/c TID standing ativan 10/27 -dc morphine IV PRN -c/w LR -replace potassium losses (2) Esophageal ulcer with bleeding Comment: -Hgb stable -Appreciate GI consult and endoscopy results -d/c Protonix drip 10/27 and starting PO (3) Peptic ulcer disease with hemorrhage Comment: see above, PO PPI, repeat EGD in 3 months (4) Urinary retention Comment: -Appreciate urology assistance -now on flomax -Will need urology f/u in 1-2 weeks (5) DVT prophylaxis Comment: - SCDs only in the setting of GI bleed Status and Disposition: Inpatient. Anticipate d/c home when medically stable, timeframe unknown.
[2018-10-28 15:34] LABS: Stool Helicobacter pylori Ag Negative (Negative)
[2018-10-28] MEDS: Acetaminophen TAB* 325 MG PO PRN (19:40)
[2018-10-28] MEDS: Tamsulosin CAP* 0.4 MG PO SCH (21:53)
[2018-10-28] MEDS: Nicotine Patch Removal NOTE FOLLOW UP SCH (22:11)
[2018-10-29] MEDS: LORazepam INJ* 2 MG/ML 1 ML VIAL IV PUSH PRN ×8 (00:15→22:09)
[2018-10-29] MEDS: hydrALAZINE IV* 20 MG/ML VIAL IV SLOW PU PRN ×2 (05:03→16:04)
[2018-10-29] MEDS: Pantoprazole TAB * 40 MG TAB PO SCH ×2 (08:07→20:14)
[2018-10-29] MEDS: Nystatin CREAM* 15 GM TUBE TOPICAL SCH ×2 (08:07→20:15)
[2018-10-29] MEDS: Nicotine PATCH 14 MG/24 HR* PATCH TRANSDERM SCH (08:08)
[2018-10-29] MEDS: Hydrocortisone 1% CREAM* 30 GM TUBE TOPICAL SCH ×2 (08:08→20:14)
[2018-10-29] MEDS: Thiamine IV 100 MG in NS 0.9% 50 ML Q24H IV SCH (11:10)
[2018-10-29] MEDS: Ondansetron INJ* 2 MG/ML VIAL IV PRN (14:41)
[2018-10-29] MEDS ORDERED: PROCHLORPERAZINE INJ 5 MG/ML 2 ML VIAL IV ONE (16:06)
--- NOTE | 2018-10-29 16:23 | PN ---
Subjective Date of Service: 10/29/18 Interval History: Seen with sister at bedside Pt denies anxiety, N/V, LH Endorsing nausea to RN later in the day Fairly lethargic but when woken and asked about pain he reports it in his left hip (chronic) 9mg ativan in last 24 hrs Agreeable to discussion about outpatient rehab - in notes from SW yesterday he did not feel he needed help nor did he feel he had an alcohol abuse disorder Family History: Unchanged from Admission Social History: Unchanged from Admission Past Medical History: Unchanged from Admission Objective Active Medications: Acetaminophen (Tylenol Tab*) 650 mg PO Q6H PRN PRN Reason: PAIN Last Admin: 10/28/18 19:40 Dose: 650 mg Hydralazine HCl (Apresoline Iv*) 10 mg IV SLOW PU Q6H PRN PRN Reason: SBP>170 Last Admin: 10/29/18 16:04 Dose: 10 mg Hydrocortisone (Hytone Cream 1%*) 1 applic TOPICAL BID [facility] Last Admin: 10/29/18 08:08 Dose: 1 applic Lorazepam (Ativan Inj*) 0 mg IV PUSH Q2H PRN; Protocol PRN Reason: alcohol withdrawal Miscellaneous (Ativan Pyxis Smith) 1 ea N/A .ATIVAN IV SMITH PRN PRN Reason: PYXIS SMITH Nicotine (Nicotine Patch 14 Mg/24 Hr*) 1 patch TRANSDERM DAILY [facility] Last Admin: 10/29/18 08:08 Dose: 1 patch Nystatin (Nystatin Cream*) 1 applic TOPICAL BID [facility] Last Admin: 10/29/18 08:07 Dose: 1 applic Ondansetron HCl (Zofran Inj*) 4 mg IV Q6H PRN PRN Reason: NAUSEA Last Admin: 10/29/18 14:41 Dose: 4 mg Pantoprazole Sodium (Protonix Tab*) 40 mg PO BID [facility] Last Admin: 10/29/18 08:07 Dose: 40 mg Pharmacy Profile Note (Nicotine Patch Removal Note*) 1 note FOLLOW UP 2100 [facility] Last Admin: 10/28/18 22:11 Dose: 1 note Tamsulosin HCl (Flomax Cap*) 0.4 mg PO BEDTIME [facility] Last Admin: 10/28/18 21:53 Dose: 0.4 mg Thiamine HCl (Vitamin B-1 Tab*) 200 mg PO DAILY [facility] Vital Signs - 8 hr 10/29/18 10/29/18 10/29/18 09:59 10:00 14:41 Temperature 98.1 F Pulse Rate 99 Respiratory 16 14 18 Rate Blood Pressure 146/89 (mmHg) O2 Sat by Pulse 99 Oximetry 10/29/18 16:08 Temperature Pulse Rate Respiratory 25 Rate Blood Pressure (mmHg) O2 Sat by Pulse Oximetry Oxygen Devices in Use Now: None Appearance: disheveled, thin, NAD Eyes: No Scleral Icterus Ears/Nose/Mouth/Throat: NL Teeth, Lips, Gums, Clear Oropharnyx Neck: NL Appearance and Movements; NL JVP, Trachea Midline Respiratory: Symmetrical Chest Expansion and Respiratory Effort, Clear to Auscultation Cardiovascular: RRR Abdominal: NL Sounds; No Tenderness; No Distention, No Hepatosplenomegaly Lymphatic: No Cervical Adenopathy Extremities: No Edema Skin: No Rash or Ulcers Neurological: Alert and Oriented x 3 - easy to wake, oriented, no tongue fasiculations or tremor with arms outstretched - Nutrition: Malnutrition Diagnosis/Plan Malnutrition Assessment by Registered Dietitian: Malnutrition Assessment Clinical Characteristics Chronic,Severe Malnutrition Assessment: >7.5% wt loss x 3 mos Criteria </=50% of EEE >5 days Malnutrition Assessment: Ensure Enlive BID (350 kcals, 20g pro each) Interventions Malnutrition Assessment: Goals 1. adequate intake to support hydration and lean body mass without add'l wt loss 2. maintain serum electrolytes WNL 3. regulation of bowel pattern; no c/o constipation (or diarrhea) Result Diagrams: 10/28/18 05:47 10/27/18 06:33 Microbiology and Other Data: Microbiology 10/23/18 22:00 Nasal Nasal Screen MRSA (PCR) - Final Mrsa Not Detected 10/23/18 19:45 Urine Urine Culture - Final No Growth (<1,000 CFU/mL) 10/23/18 18:51 Stool Stool Occult Blood (WEI) - Final Assess/Plan/Problems-Billing Assessment: Mr. Markham is a 57 yo M with PMH of HTN, etoh abuse, and iron-def anemia; who presented to the ED with c/o coffee-ground emesis found with multiple esophageal and gastric ulcers - Patient Problems (1) Alcohol withdrawal Comment: - Family reports 1L of alcohol per day - Receiving lorazepam PRN for WAM scores - decreased mg dosing today on scale -d/c TID standing ativan 10/27 -dc morphine IV PRN -d/c fluids -repete BMP in AM and replete potassium losses (2) Esophageal ulcer with bleeding Comment: -Hgb stable -Appreciate GI consult and endoscopy results -d/c Protonix drip 10/27 and starting PO (3) Peptic ulcer disease with hemorrhage Comment: see above, PO PPI, repeat EGD in 3 months (4) Urinary retention Comment: -Appreciate urology assistance -now on flomax -Will need urology f/u in 1-2 weeks (5) DVT prophylaxis Comment: - SCDs only in the setting of GI bleed Status and Disposition: Inpatient. Anticipate d/c home when medically stable. 9 mg ativan in last 24 hrs. Suspect several days until ready for dc
[2018-10-29] MEDS: Tamsulosin CAP* 0.4 MG PO SCH (20:14)
[2018-10-29] MEDS: Nicotine Patch Removal NOTE FOLLOW UP SCH (20:15)
[2018-10-30] MEDS: LORazepam INJ* 2 MG/ML 1 ML VIAL IV PUSH PRN ×7 (00:26→22:47)
[2018-10-30 06:42] LABS: BUN/Creatinine Ratio 10.4 (8-20); Calcium 8.8 mg/dL (8.6-10.3); EGFR African American 125.1 (>60); EGFR Non-African American 103.4 (>60); Magnesium 1.9 mg/dL (1.9-2.7); Potassium 3.9 mmol/L (3.5-5.0)
[2018-10-30] MEDS: Lisinopril TAB* 10 MG PO SCH (09:10)
[2018-10-30] MEDS: amLODIPine TAB* 5 MG PO SCH (09:10)
[2018-10-30] MEDS: Nystatin CREAM* 15 GM TUBE TOPICAL SCH ×2 (09:10→22:32)
[2018-10-30] MEDS: Pantoprazole TAB * 40 MG TAB PO SCH ×2 (09:10→22:31)
[2018-10-30] MEDS: Hydrocortisone 1% CREAM* 30 GM TUBE TOPICAL SCH ×2 (09:10→22:32)
[2018-10-30] MEDS: Thiamine TAB* 100 MG TAB PO SCH (09:10)
[2018-10-30] MEDS: Nicotine PATCH 14 MG/24 HR* PATCH TRANSDERM SCH (09:16)
--- NOTE | 2018-10-30 17:28 | PN ---
Subjective Date of Service: 10/30/18 Interval History: Seen early this AM. More sleepy. Had fall yesterday . CT head today performed for this reason without e/o bleed Patient denies anxiety, agitation, N/V, JOHNSON but has continued to score on the WAM Family History: Unchanged from Admission Social History: Unchanged from Admission Past Medical History: Unchanged from Admission Objective Active Medications: Acetaminophen (Tylenol Tab*) 650 mg PO Q6H PRN PRN Reason: PAIN Last Admin: 10/28/18 19:40 Dose: 650 mg Amlodipine Besylate (Norvasc Tab*) 10 mg PO DAILY [facility] Last Admin: 10/30/18 09:10 Dose: 10 mg Hydralazine HCl (Apresoline Iv*) 10 mg IV SLOW PU Q6H PRN PRN Reason: SBP>170 Last Admin: 10/29/18 16:04 Dose: 10 mg Hydrocortisone (Hytone Cream 1%*) 1 applic TOPICAL BID [facility] Last Admin: 10/30/18 09:10 Dose: 1 applic Lisinopril (Prinivil Tab*) 40 mg PO DAILY [facility] Last Admin: 10/30/18 09:10 Dose: 40 mg Lorazepam (Ativan Inj*) 0 mg IV PUSH Q2H PRN; Protocol PRN Reason: alcohol withdrawal Last Admin: 10/30/18 16:22 Dose: 2 mg Miscellaneous (Ativan Pyxis Smith) 1 ea N/A .ATIVAN IV SMITH PRN PRN Reason: PYXIS SMITH Nicotine (Nicotine Patch 14 Mg/24 Hr*) 1 patch TRANSDERM DAILY [facility] Last Admin: 10/30/18 09:16 Dose: 1 patch Nystatin (Nystatin Cream*) 1 applic TOPICAL BID [facility] Last Admin: 10/30/18 09:10 Dose: 1 applic Ondansetron HCl (Zofran Inj*) 4 mg IV Q6H PRN PRN Reason: NAUSEA Last Admin: 10/29/18 14:41 Dose: 4 mg Pantoprazole Sodium (Protonix Tab*) 40 mg PO BID [facility] Last Admin: 10/30/18 09:10 Dose: 40 mg Pharmacy Profile Note (Nicotine Patch Removal Note*) 1 note FOLLOW UP 2100 [facility] Last Admin: 10/29/18 20:15 Dose: Not Given Tamsulosin HCl (Flomax Cap*) 0.4 mg PO BEDTIME [facility] Last Admin: 10/29/18 20:14 Dose: 0.4 mg Thiamine HCl (Vitamin B-1 Tab*) 200 mg PO DAILY [facility] Last Admin: 10/30/18 09:10 Dose: 200 mg Vital Signs - 8 hr 10/30/18 10/30/18 10/30/18 10:25 11:54 14:04 Temperature Pulse Rate 112 Respiratory 16 18 20 Rate Blood Pressure 136/77 (mmHg) O2 Sat by Pulse 97 Oximetry 10/30/18 10/30/18 10/30/18 15:21 16:15 16:22 Temperature 98.4 F Pulse Rate 121 Respiratory 18 20 20 Rate Blood Pressure 132/62 (mmHg) O2 Sat by Pulse 96 Oximetry Oxygen Devices in Use Now: None Appearance: older than stated age Eyes: No Scleral Icterus Ears/Nose/Mouth/Throat: - - poor dentition Neck: NL Appearance and Movements; NL JVP, Trachea Midline Respiratory: Symmetrical Chest Expansion and Respiratory Effort, Clear to Auscultation Cardiovascular: NL Sounds; No Murmurs; No JVD Lymphatic: No Cervical Adenopathy Extremities: No Edema Skin: No Rash or Ulcers Neurological: Alert and Oriented x 3, - - oriented, slow speech, no tremor - Nutrition: Malnutrition Diagnosis/Plan Malnutrition Assessment by Registered Dietitian: Malnutrition Assessment Clinical Characteristics Chronic,Severe Malnutrition Assessment: >7.5% wt loss x 3 mos Criteria </=50% of EEE >5 days Malnutrition Assessment: Ensure Enlive BID (350 kcals, 20g pro each) Interventions Malnutrition Assessment: Goals 1. adequate intake to support hydration and lean body mass without add'l wt loss 2. maintain serum electrolytes WNL 3. regulation of bowel pattern; no c/o constipation (or diarrhea) Result Diagrams: 10/28/18 05:47 10/30/18 05:58 Microbiology and Other Data: Microbiology 10/23/18 22:00 Nasal Nasal Screen MRSA (PCR) - Final Mrsa Not Detected 10/23/18 19:45 Urine Urine Culture - Final No Growth (<1,000 CFU/mL) 10/23/18 18:51 Stool Stool Occult Blood (WEI) - Final Assess/Plan/Problems-Billing Assessment: Mr. Markham is a 57 yo M with PMH of HTN, etoh abuse, and iron-def anemia; who presented to the ED with c/o coffee-ground emesis found with multiple esophageal and gastric ulcers - Patient Problems (1) Alcohol withdrawal Comment: - Family reports 1L of alcohol per day - Receiving lorazepam PRN for WAM scores - decreased mg dosing 10/29 on scale -d/c TID standing ativan 10/27 -dc morphine IV PRN -d/c fluids (2) Esophageal ulcer with bleeding Comment: -Hgb stable -Appreciate GI consult and endoscopy results -d/c Protonix drip 10/27 and starting PO (3) Peptic ulcer disease with hemorrhage Comment: see above, PO PPI, repeat EGD in 3 months (4) Urinary retention Comment: -Appreciate urology assistance -now on flomax -Will need urology f/u in 1-2 weeks (5) DVT prophylaxis Comment: - SCDs only in the setting of GI bleed Status and Disposition: Inpatient. Anticipate d/c home when medically stable. Slow to taper from ativan need. His benxo requirement seems to be higher in the evening. Suspect several more days
[2018-10-30] MEDS: Tamsulosin CAP* 0.4 MG PO SCH (22:31)
[2018-10-30] MEDS: Nicotine Patch Removal NOTE FOLLOW UP SCH (22:56)
[2018-10-31] MEDS: LORazepam INJ* 2 MG/ML 1 ML VIAL IV PUSH PRN ×4 (02:40→18:25)
[2018-10-31] MEDS: Lisinopril TAB* 10 MG PO SCH (08:46)
[2018-10-31] MEDS: Pantoprazole TAB * 40 MG TAB PO SCH ×2 (08:46→21:24)
[2018-10-31] MEDS: amLODIPine TAB* 5 MG PO SCH (08:46)
[2018-10-31] MEDS: Thiamine TAB* 100 MG TAB PO SCH (08:46)
[2018-10-31] MEDS: Hydrocortisone 1% CREAM* 30 GM TUBE TOPICAL SCH ×2 (08:47→21:30)
[2018-10-31] MEDS: Nicotine PATCH 14 MG/24 HR* PATCH TRANSDERM SCH (08:47)
[2018-10-31] MEDS: Nystatin CREAM* 15 GM TUBE TOPICAL SCH ×2 (08:52→21:30)
--- NOTE | 2018-10-31 13:02 | PN ---
Subjective Date of Service: 10/31/18 Interval History: Denies any complaints.Appears confused.Wants maher out.but urology had placed it in the setting of urinary retention Family History: Unchanged from Admission Social History: Unchanged from Admission Past Medical History: Unchanged from Admission Objective Active Medications: Acetaminophen (Tylenol Tab*) 650 mg PO Q6H PRN PRN Reason: PAIN Last Admin: 10/28/18 19:40 Dose: 650 mg Amlodipine Besylate (Norvasc Tab*) 10 mg PO DAILY [facility] Last Admin: 10/31/18 08:46 Dose: 10 mg Hydralazine HCl (Apresoline Iv*) 10 mg IV SLOW PU Q6H PRN PRN Reason: SBP>170 Last Admin: 10/29/18 16:04 Dose: 10 mg Hydrocortisone (Hytone Cream 1%*) 1 applic TOPICAL BID [facility] Last Admin: 10/31/18 08:47 Dose: 1 applic Lisinopril (Prinivil Tab*) 40 mg PO DAILY [facility] Last Admin: 10/31/18 08:46 Dose: 40 mg Lorazepam (Ativan Inj*) 0 mg IV PUSH Q2H PRN; Protocol PRN Reason: alcohol withdrawal Last Admin: 10/31/18 02:40 Dose: 1 mg Miscellaneous (Ativan Pyxis Smith) 1 ea N/A .ATIVAN IV SMITH PRN PRN Reason: PYXIS SMITH Nicotine (Nicotine Patch 14 Mg/24 Hr*) 1 patch TRANSDERM DAILY [facility] Last Admin: 10/31/18 08:47 Dose: 1 patch Nystatin (Nystatin Cream*) 1 applic TOPICAL BID [facility] Last Admin: 10/31/18 08:52 Dose: 1 applic Ondansetron HCl (Zofran Inj*) 4 mg IV Q6H PRN PRN Reason: NAUSEA Last Admin: 10/29/18 14:41 Dose: 4 mg Pantoprazole Sodium (Protonix Tab*) 40 mg PO BID [facility] Last Admin: 10/31/18 08:46 Dose: 40 mg Pharmacy Profile Note (Nicotine Patch Removal Note*) 1 note FOLLOW UP 2100 [facility] Last Admin: 10/30/18 22:56 Dose: 1 note Tamsulosin HCl (Flomax Cap*) 0.4 mg PO BEDTIME [facility] Last Admin: 10/30/18 22:31 Dose: 0.4 mg Thiamine HCl (Vitamin B-1 Tab*) 200 mg PO DAILY [facility] Last Admin: 10/31/18 08:46 Dose: 200 mg Vital Signs - 8 hr 10/31/18 06:00 Temperature 97.5 F Pulse Rate 73 Respiratory 18 Rate Blood Pressure 139/84 (mmHg) O2 Sat by Pulse 94 Oximetry Oxygen Devices in Use Now: None Eyes: No Scleral Icterus Neck: NL Appearance and Movements; NL JVP Respiratory: Symmetrical Chest Expansion and Respiratory Effort, Clear to Auscultation Cardiovascular: NL Sounds; No Murmurs; No JVD Abdominal: NL Sounds; No Tenderness; No Distention Extremities: No Edema - Nutrition: Malnutrition Diagnosis/Plan Malnutrition Assessment by Registered Dietitian: Malnutrition Assessment Clinical Characteristics Chronic,Severe Malnutrition Assessment: >7.5% wt loss x 3 mos Criteria </=50% of EEE >5 days Malnutrition Assessment: Ensure Enlive BID (350 kcals, 20g pro each) Interventions Malnutrition Assessment: Goals 1. adequate intake to support hydration and lean body mass without add'l wt loss 2. maintain serum electrolytes WNL 3. regulation of bowel pattern; no c/o constipation (or diarrhea) Result Diagrams: 10/28/18 05:47 10/30/18 05:58 Microbiology and Other Data: Microbiology 10/23/18 22:00 Nasal Nasal Screen MRSA (PCR) - Final Mrsa Not Detected 10/23/18 19:45 Urine Urine Culture - Final No Growth (<1,000 CFU/mL) 10/23/18 18:51 Stool Stool Occult Blood (WEI) - Final Assess/Plan/Problems-Billing Assessment: Mr. Markham is a 57 yo M with PMH of HTN, etoh abuse, and iron-def anemia; who presented to the ED with c/o coffee-ground emesis found with multiple esophageal and gastric ulcers - Patient Problems (1) Alcohol withdrawal Current Visit: Yes Status: Acute Priority: Medium Code(s): F10.239 - ALCOHOL DEPENDENCE WITH WITHDRAWAL, UNSPECIFIED SNOMED Code(s): 398992420 Comment: - Family reports 1L of alcohol per day - Receiving lorazepam PRN for WAM scores - decreased mg dosing 10/29 on scale -d/hannah TID standing ativan 10/27 -dc morphine IV PRN -d/c fluids (2) Esophageal ulcer with bleeding Current Visit: Yes Status: Acute Priority: High Comment: -Hgb stable -Appreciate GI consult and endoscopy results -d/hannah Protonix drip 10/27 and started PO (3) Peptic ulcer disease with hemorrhage Current Visit: Yes Status: Acute Priority: High Code(s): K27.4 - CHRONIC OR UNSP PEPTIC ULCER, SITE UNSP, WITH HEMORRHAGE SNOMED Code(s): 71863463 Comment: see above, PO PPI, repeat EGD in 3 months (4) Urinary retention Current Visit: Yes Status: Acute Priority: Medium Code(s): R33.9 - RETENTION OF URINE, UNSPECIFIED SNOMED Code(s): 212594906 Comment: -Appreciate urology assistance -now on flomax -Will need urology f/u in 1-2 weeks (5) Alcoholic encephalopathy Current Visit: No Status: Acute Code(s): G31.2 - DEGENERATION OF NERVOUS SYSTEM DUE TO ALCOHOL; F10.20 - ALCOHOL DEPENDENCE, UNCOMPLICATED SNOMED Code( s): 268329561 (6) DVT prophylaxis Current Visit: Yes Status: Acute Priority: Low Code(s): WNN5737 - SNOMED Code(s): 585338399 Comment: - SCDs only in the setting of GI bleed Status and Disposition: Inpatient. Anticipate d/c home when medically stable. Slow to taper from ativan need. His benxo requirement seems to be higher in the evening. Suspect several more days
[2018-10-31] MEDS: Ondansetron INJ* 2 MG/ML VIAL IV PRN (15:18)
[2018-10-31] MEDS: hydrALAZINE IV* 20 MG/ML VIAL IV SLOW PU PRN (18:25)
[2018-10-31] MEDS ORDERED: Ondansetron INJ* 2 MG/ML VIAL IV ONE (18:32)
[2018-10-31 19:44] LABS: ABS Basophils 0.1 10^3/ul (0-0.2); ABS Lymphocytes 0.5 10^3/ul (1.0-4.8); ABS Monocytes 0.5 10^3/ul (0-0.8); ABS Neutrophils 5.9 10^3/ul (1.5-7.7); Eosinophil % 0.6 %; Hematocrit 34 % (42-52); Hemoglobin 11.2 g/dL (14.0-18.0); Lymphocyte % 7.2 %; Mean Corpuscular HGB Conc 32 g/dL (31-36); Mean Corpuscular Hemoglobin 28 pg (27-31); Mean Corpuscular Volume 85 fL (80-94); Mean Platelet Volume 8.4 fL (7.4-10.4); Platelet Count 228 10^3/uL (150-450); Red Blood Count 4.05 10^6 /uL (4.18-5.48); Red Cell Distribution Width 18 % (10-15)
[2018-10-31 19:56] LABS: BUN/Creatinine Ratio 12.7 (8-20); EGFR African American 137.4 (>60); EGFR Non-African American 113.6 (>60); Potassium 3.8 mmol/L (3.5-5.0)
[2018-10-31] MEDS: Folic Acid TAB* 1 MG PO SCH (21:21)
[2018-10-31] MEDS: Tamsulosin CAP* 0.4 MG PO SCH (21:24)
[2018-10-31] MEDS: Nicotine Patch Removal NOTE FOLLOW UP SCH (21:31)
[2018-11-01 06:46] LABS: BUN/Creatinine Ratio 13.8 (8-20); Calcium 8.5 mg/dL (8.6-10.3); EGFR African American 152.1 (>60); EGFR Non-African American 125.7 (>60); Potassium 3.6 mmol/L (3.5-5.0)
[2018-11-01 06:58] LABS: ABS Basophils 0.1 10^3/ul (0-0.2); ABS Eosinophils 0.2 10^3/ul (0-0.6); ABS Lymphocytes 1.3 10^3/ul (1.0-4.8); ABS Monocytes 0.7 10^3/ul (0-0.8); ABS Neutrophils 3.8 10^3/ul (1.5-7.7); Eosinophil % 3.9 %; Hematocrit 34 % (42-52); Hemoglobin 10.8 g/dL (14.0-18.0); Lymphocyte % 21.4 %; Mean Corpuscular HGB Conc 32 g/dL (31-36); Mean Corpuscular Hemoglobin 28 pg (27-31); Mean Corpuscular Volume 87 fL (80-94); Mean Platelet Volume 8.7 fL (7.4-10.4); Platelet Count 221 10^3/uL (150-450); Red Blood Count 3.89 10^6 /uL (4.18-5.48); Red Cell Distribution Width 19 % (10-15); White Blood Count 6.2 10^3/uL (3.5-10.8)
[2018-11-01] MEDS: Nicotine PATCH 14 MG/24 HR* PATCH TRANSDERM SCH (08:21)
[2018-11-01] MEDS: Acetaminophen TAB* 325 MG PO PRN (08:22)
[2018-11-01] MEDS: Thiamine TAB* 100 MG TAB PO SCH (08:22)
[2018-11-01] MEDS: Pantoprazole TAB * 40 MG TAB PO SCH ×2 (08:22→20:09)
[2018-11-01] MEDS: amLODIPine TAB* 5 MG PO SCH (08:22)
[2018-11-01] MEDS: Folic Acid TAB* 1 MG PO SCH (08:22)
[2018-11-01] MEDS: Lisinopril TAB* 10 MG PO SCH (08:23)
[2018-11-01] MEDS: LORazepam INJ* 2 MG/ML 1 ML VIAL IV PUSH PRN (08:23)
[2018-11-01] MEDS: Nystatin CREAM* 15 GM TUBE TOPICAL SCH ×2 (08:25→20:11)
[2018-11-01] MEDS: Hydrocortisone 1% CREAM* 30 GM TUBE TOPICAL SCH ×2 (08:27→20:11)
[2018-11-01] MEDS ORDERED: cloNIDine 0.2 MG PATCH* 0.2 MG/24 HR 7 DAY PATCH TRANSDERM SCH (09:00)
[2018-11-01 11:13] LABS: Urine Appearance Cloudy; Urine Bacteria Absent (Absent); Urine Bilirubin Negative (Negative); Urine Blood 1+ (Negative); Urine Color Amber; Urine Glucose Negative (Negative); Urine Ketones Negative (Negative); Urine Nitrite Negative (Negative); Urine Protein Negative (Negative); Urine Red Blood Cell 2+(6-10/hpf) (Absent); Urine Specific Gravity 1.023 (1.010-1.030); Urine Urobilinogen Negative (Negative); Urine White Blood Cell 2+(11-20/hpf) (Absent)
--- NOTE | 2018-11-01 13:21 | PN ---
Subjective Date of Service: 11/01/18 Interval History: Vomiting and nausea somewhat improved.Still withdrawing.Needs ativan more in the evening.Denies any complaints this am Family History: Unchanged from Admission Social History: Unchanged from Admission Past Medical History: Unchanged from Admission Objective Active Medications: Acetaminophen (Tylenol Tab*) 650 mg PO Q6H PRN PRN Reason: PAIN Last Admin: 11/01/18 08:22 Dose: 650 mg Amlodipine Besylate (Norvasc Tab*) 10 mg PO DAILY [facility] Last Admin: 11/01/18 08:22 Dose: 10 mg Clonidine HCl (Gfniimca-Lww-0 0.2 Mg Patch*) 0.2 mg TRANSDERM Q7D [facility] Last Admin: 11/01/18 10:28 Dose: 0.2 mg Folic Acid (Folvite Tab*) 1 mg PO DAILY [facility] Last Admin: 11/01/18 08:22 Dose: 1 mg Hydralazine HCl (Apresoline Iv*) 10 mg IV SLOW PU Q6H PRN PRN Reason: SBP>170 Last Admin: 10/31/18 18:25 Dose: 10 mg Hydrocortisone (Hytone Cream 1%*) 1 applic TOPICAL BID [facility] Last Admin: 11/01/18 08:27 Dose: Not Given Lisinopril (Prinivil Tab*) 40 mg PO DAILY [facility] Last Admin: 11/01/18 08:23 Dose: 40 mg Lorazepam (Ativan Inj*) 0 mg IV PUSH Q2H PRN; Protocol PRN Reason: alcohol withdrawal Last Admin: 11/01/18 08:23 Dose: 0.5 mg Miscellaneous (Ativan Pyxis Smith) 1 ea N/A .ATIVAN IV SMITH PRN PRN Reason: PYXIS SMITH Nicotine (Nicotine Patch 14 Mg/24 Hr*) 1 patch TRANSDERM DAILY [facility] Last Admin: 11/01/18 08:21 Dose: 1 patch Nystatin (Nystatin Cream*) 1 applic TOPICAL BID [facility] Last Admin: 11/01/18 08:25 Dose: 1 applic Ondansetron HCl (Zofran Inj*) 4 mg IV Q6H PRN PRN Reason: NAUSEA Last Admin: 10/31/18 15:18 Dose: 4 mg Pantoprazole Sodium (Protonix Tab*) 40 mg PO BID [facility] Last Admin: 11/01/18 08:22 Dose: 40 mg Pharmacy Profile Note (Nicotine Patch Removal Note*) 1 note FOLLOW UP 2100 [facility] Last Admin: 10/31/18 21:31 Dose: 1 note Tamsulosin HCl (Flomax Cap*) 0.4 mg PO BEDTIME [facility] Last Admin: 10/31/18 21:24 Dose: 0.4 mg Thiamine HCl (Vitamin B-1 Tab*) 200 mg PO DAILY [facility] Last Admin: 11/01/18 08:22 Dose: 200 mg Vital Signs - 8 hr 11/01/18 11/01/18 11/01/18 06:07 08:00 08:23 Temperature 98.0 F 98.1 F Pulse Rate 83 99 Respiratory 16 20 20 Rate Blood Pressure 136/89 171/98 (mmHg) O2 Sat by Pulse 95 97 Oximetry 11/01/18 11/01/18 11/01/18 10:00 10:46 12:00 Temperature 98.1 F 98.6 F Pulse Rate 83 90 Respiratory 20 18 20 Rate Blood Pressure 130/87 132/74 (mmHg) O2 Sat by Pulse 97 94 Oximetry Oxygen Devices in Use Now: None Eyes: No Scleral Icterus Ears/Nose/Mouth/Throat: NL Teeth, Lips, Gums Neck: NL Appearance and Movements; NL JVP Respiratory: Symmetrical Chest Expansion and Respiratory Effort, Clear to Auscultation Cardiovascular: NL Sounds; No Murmurs; No JVD Abdominal: NL Sounds; No Tenderness; No Distention Skin: No Rash or Ulcers Neurological: Alert and Oriented x 3 - Nutrition: Malnutrition Diagnosis/Plan Malnutrition Assessment by Registered Dietitian: Malnutrition Assessment Clinical Characteristics Chronic,Severe Malnutrition Assessment: >7.5% wt loss x 3 mos Criteria </=50% of EEE >5 days Malnutrition Assessment: Ensure Enlive BID (350 kcals, 20g pro each) Interventions Malnutrition Assessment: Goals 1. adequate intake to support hydration and lean body mass without add'l wt loss 2. maintain serum electrolytes WNL 3. regulation of bowel pattern; no c/o constipation (or diarrhea) Result Diagrams: 11/01/18 06:06 11/01/18 06:06 Microbiology and Other Data: Microbiology 10/23/18 22:00 Nasal Nasal Screen MRSA (PCR) - Final Mrsa Not Detected 10/23/18 19:45 Urine Urine Culture - Final No Growth (<1,000 CFU/mL) 10/23/18 18:51 Stool Stool Occult Blood (WEI) - Final Assess/Plan/Problems-Billing Assessment: Mr. Markham is a 57 yo M with PMH of HTN, etoh abuse, and iron-def anemia; who presented to the ED with c/o coffee-ground emesis found with multiple esophageal and gastric ulcers - Patient Problems (1) UTI (urinary tract infection) Current Visit: Yes Status: Acute Comment: Very nauseous and vomitting UA sugg of possible UTI Will add Ceftriaxone still culture back (2) Alcohol withdrawal Current Visit: Yes Status: Acute Priority: Medium Code(s): F10.239 - ALCOHOL DEPENDENCE WITH WITHDRAWAL, UNSPECIFIED SNOMED Code(s): 292371641 Comment: - Family reports 1L of alcohol per day - Receiving lorazepam PRN for WAM scores -Still withdrawing.Episode last night and this am of sig tremors.Confusion improved BP in [id number] during such episodes Continue WAM protocol.Has been a few days and risk for DTs -Added clonidine patch this am to help with bp and withdrawal -If no improvement consider transfer to ICU for precedex drip (3) Esophageal ulcer with bleeding Current Visit: Yes Status: Acute Priority: High Comment: -Hgb stable -Appreciate GI consult and endoscopy results -d/hannah Protonix drip 10/27 and started PO ppi bid (4) Peptic ulcer disease with hemorrhage Current Visit: Yes Status: Acute Priority: High Code(s): K27.4 - CHRONIC OR UNSP PEPTIC ULCER, SITE UNSP, WITH HEMORRHAGE SNOMED Code(s): 63642012 Comment: see above, PO PPI, repeat EGD in 3 months (5) Urinary retention Current Visit: Yes Status: Acute Priority: Medium Code(s): R33.9 - RETENTION OF URINE, UNSPECIFIED SNOMED Code(s): 363855113 Comment: -Appreciate urology assistance -now on flomax -Will need urology f/u in 1-2 weeks -Pt insists on getting maher out and sister worried he may pull it out at home -Rediscuss with urology on Friday and voiding trial? (6) Alcoholic encephalopathy Current Visit: No Status: Acute Code(s): G31.2 - DEGENERATION OF NERVOUS SYSTEM DUE TO ALCOHOL; F10.20 - ALCOHOL DEPENDENCE, UNCOMPLICATED SNOMED Code( s): 269386303 Comment: continue thiamine,folate head ct remote stroke no acute abnormality (7) Hypertension Current Visit: Yes Status: Acute Code(s): I10 - ESSENTIAL (PRIMARY) HYPERTENSION SNOMED Code(s): 34962940 Comment: Clonidine patch added continue home bp meds (8) DVT prophylaxis Current Visit: Yes Status: Acute Priority: High Code(s): RGP6085 - SNOMED Code(s): 707817338 Comment: - SCDs only in the setting of GI bleed Status and Disposition: Inpatient. Anticipate d/c home when medically stable. Slow to taper from ativan need. His benxo requirement seems to be higher in the evening. Suspect several more days
[2018-11-01] MEDS: cefTRIAXone(*) 1 GM in NS 0.9% 50 ML* 50 ML IVPB SCH (14:59)
[2018-11-01] MEDS: Tamsulosin CAP* 0.4 MG PO SCH (20:10)
[2018-11-01] MEDS: Nicotine Patch Removal NOTE FOLLOW UP SCH (20:12)
[2018-11-02 07:01] LABS: ABS Basophils 0.1 10^3/ul (0-0.2); ABS Eosinophils 0.3 10^3/ul (0-0.6); ABS Lymphocytes 1.5 10^3/ul (1.0-4.8); ABS Monocytes 0.7 10^3/ul (0-0.8); ABS Neutrophils 3.5 10^3/ul (1.5-7.7); Eosinophil % 5.3 %; Hematocrit 33 % (42-52); Hemoglobin 10.8 g/dL (14.0-18.0); Mean Corpuscular HGB Conc 33 g/dL (31-36); Mean Corpuscular Hemoglobin 28 pg (27-31); Mean Corpuscular Volume 84 fL (80-94); Mean Platelet Volume 8.3 fL (7.4-10.4); Nucleated Red Blood Cells % 0.1; Platelet Count 244 10^3/uL (150-450); Red Blood Count 3.86 10^6 /uL (4.18-5.48); Red Cell Distribution Width 18 % (10-15); White Blood Count 6.1 10^3/uL (3.5-10.8)
[2018-11-02 07:18] LABS: BUN/Creatinine Ratio 14.3 (8-20); Calcium 8.6 mg/dL (8.6-10.3); EGFR African American 139.7 (>60); EGFR Non-African American 115.4 (>60); Potassium 3.7 mmol/L (3.5-5.0)
[2018-11-02] MEDS: Folic Acid TAB* 1 MG PO SCH (08:30)
[2018-11-02] MEDS: Lisinopril TAB* 10 MG PO SCH (08:30)
[2018-11-02] MEDS: amLODIPine TAB* 5 MG PO SCH (08:30)
[2018-11-02] MEDS: Thiamine TAB* 100 MG TAB PO SCH (08:31)
[2018-11-02] MEDS: Pantoprazole TAB * 40 MG TAB PO SCH ×2 (08:31→22:32)
[2018-11-02] MEDS: Acetaminophen TAB* 325 MG PO PRN ×2 (08:31→19:50)
[2018-11-02] MEDS: Nicotine PATCH 14 MG/24 HR* PATCH TRANSDERM SCH (08:33)
[2018-11-02] MEDS: Hydrocortisone 1% CREAM* 30 GM TUBE TOPICAL SCH ×2 (08:36→22:32)
[2018-11-02] MEDS: Nystatin CREAM* 15 GM TUBE TOPICAL SCH ×2 (08:36→22:32)
--- NOTE | 2018-11-02 10:25 | PN ---
Subjective Date of Service: 11/02/18 Interval History: HOSPITALIST PROGRESS NOTE Patient seen and examined at bedside. Care reviewed and d/w Donna Oliva RN. As per RN, he's doing better today, has not scored on WAM >24h. His major complaint is his diet - he wants to eat a cookie. Offers no other complaints. Family History: Unchanged from Admission Social History: Unchanged from Admission Past Medical History: Unchanged from Admission Objective Active Medications: Acetaminophen (Tylenol Tab*) 650 mg PO Q6H PRN PRN Reason: PAIN Last Admin: 11/02/18 08:31 Dose: 650 mg Amlodipine Besylate (Norvasc Tab*) 10 mg PO DAILY [facility] Last Admin: 11/02/18 08:30 Dose: 10 mg Clonidine HCl (Hosakgtw-Lci-8 0.2 Mg Patch*) 0.2 mg TRANSDERM Q7D [facility] Last Admin: 11/01/18 10:28 Dose: 0.2 mg Folic Acid (Folvite Tab*) 1 mg PO DAILY [facility] Last Admin: 11/02/18 08:30 Dose: 1 mg Hydralazine HCl (Apresoline Iv*) 10 mg IV SLOW PU Q6H PRN PRN Reason: SBP>170 Last Admin: 10/31/18 18:25 Dose: 10 mg Hydrocortisone (Hytone Cream 1%*) 1 applic TOPICAL BID [facility] Last Admin: 11/02/18 08:36 Dose: Not Given Ceftriaxone Sodium 1 gm/ (Sodium Chloride) 50 mls @ 200 mls/hr IVPB Q24H [facility] Last Admin: 11/01/18 14:59 Dose: 200 mls/hr Lisinopril (Prinivil Tab*) 40 mg PO DAILY [facility] Last Admin: 11/02/18 08:30 Dose: 40 mg Lorazepam (Ativan Inj*) 0 mg IV PUSH Q2H PRN; Protocol PRN Reason: alcohol withdrawal Last Admin: 11/01/18 08:23 Dose: 0.5 mg Miscellaneous (Ativan Pyxis Smith) 1 ea N/A .ATIVAN IV SMITH PRN PRN Reason: PYXIS SMITH Nicotine (Nicotine Patch 14 Mg/24 Hr*) 1 patch TRANSDERM DAILY [facility] Last Admin: 11/02/18 08:33 Dose: 1 patch Nystatin (Nystatin Cream*) 1 applic TOPICAL BID [facility] Last Admin: 11/02/18 08:36 Dose: Not Given Ondansetron HCl (Zofran Inj*) 4 mg IV Q6H PRN PRN Reason: NAUSEA Last Admin: 10/31/18 15:18 Dose: 4 mg Pantoprazole Sodium (Protonix Tab*) 40 mg PO BID [facility] Last Admin: 11/02/18 08:31 Dose: 40 mg Pharmacy Profile Note (Nicotine Patch Removal Note*) 1 note FOLLOW UP 2100 [facility] Last Admin: 11/01/18 20:12 Dose: 1 note Tamsulosin HCl (Flomax Cap*) 0.4 mg PO BEDTIME [facility] Last Admin: 11/01/18 20:10 Dose: 0.4 mg Thiamine HCl (Vitamin B-1 Tab*) 200 mg PO DAILY [facility] Last Admin: 11/02/18 08:31 Dose: 200 mg Vital Signs - 8 hr 11/02/18 11/02/18 11/02/18 03:36 08:00 08:19 Temperature 97.6 F 98.0 F Pulse Rate 72 Respiratory 16 16 14 Rate Blood Pressure 116/71 123/86 (mmHg) O2 Sat by Pulse 97 95 Oximetry Oxygen Devices in Use Now: None Appearance: Elderly gentleman, appears older than stated age, lying in bed in NAD Eyes: No Scleral Icterus Ears/Nose/Mouth/Throat: Mucous Membranes Moist Neck: Trachea Midline Respiratory: Symmetrical Chest Expansion and Respiratory Effort, Clear to Auscultation Cardiovascular: RRR - Normal S1 and S2 Abdominal: NL Sounds; No Tenderness; No Distention Neurological: - - Sleeping, arousable to voice, Ox2 (self and hospital) - Nutrition: Malnutrition Diagnosis/Plan Malnutrition Assessment by Registered Dietitian: Malnutrition Assessment Clinical Characteristics Chronic,Severe Malnutrition Assessment: >7.5% wt loss x 3 mos Criteria </=50% of EEE >5 days Malnutrition Assessment: Ensure Enlive BID (350 kcals, 20g pro each) Interventions Malnutrition Assessment: Goals 1. adequate intake to support hydration and lean body mass without add'l wt loss 2. maintain serum electrolytes WNL 3. regulation of bowel pattern; no c/o constipation (or diarrhea) Result Diagrams: 11/02/18 06:17 11/02/18 06:17 Assess/Plan/Problems-Billing Assessment: Mr. Markham is a 57 yo M with PMH of HTN, ETOH abuse, tobacco abuse, left hip osteoarthritis, and iron deficiency anemia; who presented to the ED with c/o coffee-ground emesis found with multiple esophageal and gastric ulcers - Patient Problems (1) UTI (urinary tract infection) Comment: - UA suggestive of possible UTI, culture growing enterococcus. - Continue Ceftriaxone as his symptoms seem to be improving. (2) Alcohol withdrawal Comment: - Family reports 1L of alcohol per day - Last lorazepam PRN for WAM scores was yesterday morning. - Withdrawal seems to be resolved at this time. - Continue to monitor. (3) Upper GI bleed Comment: - Multifactorial - EGD showed erosive esophagitis with ulcerations, large hiatal hernia with Weston's lesions, and 3 gastric ulcers. (4) Esophageal ulcer with bleeding Comment: - Appreciate GI consult and endoscopy results - Continue PO PPI. (5) Peptic ulcer disease with hemorrhage Comment: - Continue PO PPI. - Plan for repeat EGD in 3 months. (6) Urinary retention Comment: - Continue Flomax - Will need urology f/u in 1-2 weeks (7) Hypertension Comment: - Controllet. - Continue Amlodipine, Lisinopril, Clonidine. (8) Physical deconditioning Comment: - Patient requires 2 assist for ambulation - will await PT f/u, but he' ll likely need MARIA ISABEL. (9) Severe protein-calorie malnutrition Comment: - As evidenced by >7.5% weight loss x 3 months and </=50% of EEE >5 days. - Will continue Ensure Enlive BID as per Dietitian recommendation. (10) DVT prophylaxis Comment: - SCDs only in the setting of GI bleed (11) Full code status Comment: Status and Disposition: Inpatient.
[2018-11-02] MEDS: cefTRIAXone(*) 1 GM in NS 0.9% 50 ML* 50 ML IVPB SCH (14:56)
[2018-11-02] MEDS: Nicotine Patch Removal NOTE FOLLOW UP SCH (22:32)
[2018-11-02] MEDS: Tamsulosin CAP* 0.4 MG PO SCH (22:32)
[2018-11-03] MEDS: Pantoprazole TAB * 40 MG TAB PO SCH ×2 (09:02→22:34)
[2018-11-03] MEDS: Nicotine PATCH 14 MG/24 HR* PATCH TRANSDERM SCH (09:02)
[2018-11-03] MEDS: Thiamine TAB* 100 MG TAB PO SCH (09:02)
[2018-11-03] MEDS: amLODIPine TAB* 5 MG PO SCH (09:03)
[2018-11-03] MEDS: Lisinopril TAB* 10 MG PO SCH (09:03)
[2018-11-03] MEDS: Nystatin CREAM* 15 GM TUBE TOPICAL SCH ×2 (09:04→22:35)
[2018-11-03] MEDS: Folic Acid TAB* 1 MG PO SCH (09:09)
[2018-11-03] MEDS: Hydrocortisone 1% CREAM* 30 GM TUBE TOPICAL SCH (09:09)
[2018-11-03] MEDS: Acetaminophen TAB* 325 MG PO PRN ×3 (10:56→23:36)
[2018-11-03] MEDS ORDERED: Hydrocortisone 1% CREAM* 30 GM TUBE TOPICAL PRN (14:00)
[2018-11-03] MEDS: cefTRIAXone(*) 1 GM in NS 0.9% 50 ML* 50 ML IVPB SCH (14:57)
--- NOTE | 2018-11-03 15:49 | PN ---
Subjective Date of Service: 11/03/18 Interval History: HOSPITALIST PROGRESS NOTE Patient seen and examined at bedside. Care reviewed and d/w Donna Oliva RN. He offers no new complaints at this time. More oriented today, able to tell me he's here because his stomach was bleeding. Doesn't remember much in between. Left hip pain is unchanged. Family History: Unchanged from Admission Social History: Unchanged from Admission Past Medical History: Unchanged from Admission Objective Active Medications: Acetaminophen (Tylenol Tab*) 650 mg PO Q6H PRN PRN Reason: PAIN Last Admin: 11/03/18 10:56 Dose: 650 mg Amlodipine Besylate (Norvasc Tab*) 10 mg PO DAILY [facility] Last Admin: 11/03/18 09:03 Dose: 10 mg Clonidine HCl (Wqgkzvlw-Fpz-4 0.2 Mg Patch*) 0.2 mg TRANSDERM Q7D [facility] Last Admin: 11/01/18 10:28 Dose: 0.2 mg Folic Acid (Folvite Tab*) 1 mg PO DAILY [facility] Last Admin: 11/03/18 09:09 Dose: 1 mg Hydralazine HCl (Apresoline Iv*) 10 mg IV SLOW PU Q6H PRN PRN Reason: SBP>170 Last Admin: 10/31/18 18:25 Dose: 10 mg Hydrocortisone (Hytone Cream 1%*) 1 applic TOPICAL BID PRN PRN Reason: RASHES Ceftriaxone Sodium 1 gm/ (Sodium Chloride) 50 mls @ 200 mls/hr IVPB Q24H [facility] Last Admin: 11/03/18 14:57 Dose: 200 mls/hr Lisinopril (Prinivil Tab*) 40 mg PO DAILY [facility] Last Admin: 11/03/18 09:03 Dose: 40 mg Lorazepam (Ativan Inj*) 0 mg IV PUSH Q2H PRN; Protocol PRN Reason: alcohol withdrawal Last Admin: 11/01/18 08:23 Dose: 0.5 mg Miscellaneous (Ativan Pyxis Jackman) 1 ea N/A .ATIVAN IV JACKMAN PRN PRN Reason: PYXIS JACKMAN Nicotine (Nicotine Patch 14 Mg/24 Hr*) 1 patch TRANSDERM DAILY [facility] Last Admin: 11/03/18 09:02 Dose: 1 patch Nystatin (Nystatin Cream*) 1 applic TOPICAL BID [facility] Last Admin: 11/03/18 09:04 Dose: 1 applic Ondansetron HCl (Zofran Inj*) 4 mg IV Q6H PRN PRN Reason: NAUSEA Last Admin: 10/31/18 15:18 Dose: 4 mg Pantoprazole Sodium (Protonix Tab*) 40 mg PO BID [facility] Last Admin: 11/03/18 09:02 Dose: 40 mg Pharmacy Profile Note (Nicotine Patch Removal Note*) 1 note FOLLOW UP 2100 [facility] Last Admin: 11/02/18 22:32 Dose: 1 note Tamsulosin HCl (Flomax Cap*) 0.4 mg PO BEDTIME [facility] Last Admin: 11/02/18 22:32 Dose: 0.4 mg Thiamine HCl (Vitamin B-1 Tab*) 200 mg PO DAILY [facility] Last Admin: 11/03/18 09:02 Dose: 200 mg Vital Signs - 8 hr 11/03/18 11/03/18 11/03/18 07:52 11:02 11:39 Temperature 98.3 F 98.4 F Pulse Rate 72 81 Respiratory 18 18 18 Rate Blood Pressure 132/79 116/86 (mmHg) Oxygen Devices in Use Now: None Appearance: Elderly gentleman, appears older than stated age, sitting up in bed in [facility]. Eyes: No Scleral Icterus Ears/Nose/Mouth/Throat: Mucous Membranes Moist Neck: Trachea Midline Respiratory: Symmetrical Chest Expansion and Respiratory Effort, Clear to Auscultation Cardiovascular: RRR - Normal S1 and S2 Abdominal: NL Sounds; No Tenderness; No Distention Neurological: - - AAOx2 (self and place), DOSHI - Nutrition: Malnutrition Diagnosis/Plan Malnutrition Assessment by Registered Dietitian: Malnutrition Assessment Clinical Characteristics Chronic,Severe Malnutrition Assessment: >7.5% wt loss x 3 mos Criteria </=50% of EEE >5 days Malnutrition Assessment: Ensure Enlive BID (350 kcals, 20g pro each) Interventions Malnutrition Assessment: Goals 1. adequate intake to support hydration and lean body mass without add'l wt loss 2. maintain serum electrolytes WNL 3. regulation of bowel pattern; no c/o constipation (or diarrhea) Result Diagrams: 11/02/18 06:17 11/02/18 06:17 Assess/Plan/Problems-Billing Assessment: Mr. Markham is a 57 yo M with PMH of HTN, ETOH abuse, tobacco abuse, left hip osteoarthritis, and iron deficiency anemia; who presented to the ED with c/o coffee-ground emesis found with multiple esophageal and gastric ulcers - Patient Problems (1) UTI (urinary tract infection) Comment: - UA suggestive of possible UTI, culture growing enterococcus. - Continue Ceftriaxone. (2) Alcohol withdrawal Comment: - Family reports 1L of alcohol per day - Last lorazepam PRN for WAM scores was >48h. - Withdrawal seems to be resolved at this time. - Continue to monitor. (3) Upper GI bleed Comment: - Multifactorial - EGD showed erosive esophagitis with ulcerations, large hiatal hernia with Weston's lesions, and 3 gastric ulcers. - Continue PPI. (4) Esophageal ulcer with bleeding Comment: - Appreciate GI consult and endoscopy results - Continue PO PPI. (5) Peptic ulcer disease with hemorrhage Comment: - Continue PO PPI. - Plan for repeat EGD in 3 months. (6) Urinary retention Comment: - Continue Flomax - Will need urology f/u in 1-2 weeks (7) Hypertension Comment: - Controlled. - Continue Amlodipine, Lisinopril, Clonidine. (8) Physical deconditioning Comment: - Patient requires 2 assist for ambulation - will likely need MARIA ISABEL. (9) Severe protein-calorie malnutrition Comment: - As evidenced by >7.5% weight loss x 3 months and </=50% of EEE >5 days. - Will continue Ensure Enlive BID as per Dietitian recommendation. (10) DVT prophylaxis Comment: - SCDs only in the setting of GI bleed (11) Full code status Comment: Status and Disposition: Inpatient. Sister updated at bedside yesterday.
[2018-11-03] MEDS: Tamsulosin CAP* 0.4 MG PO SCH (22:34)
[2018-11-03] MEDS: Nicotine Patch Removal NOTE FOLLOW UP SCH (22:36)
[2018-11-04] MEDS: Folic Acid TAB* 1 MG PO SCH (08:13)
[2018-11-04] MEDS: Thiamine TAB* 100 MG TAB PO SCH (08:13)
[2018-11-04] MEDS: Lisinopril TAB* 10 MG PO SCH (08:13)
[2018-11-04] MEDS: amLODIPine TAB* 5 MG PO SCH (08:14)
[2018-11-04] MEDS: Pantoprazole TAB * 40 MG TAB PO SCH (08:14)
[2018-11-04] MEDS: Nicotine PATCH 14 MG/24 HR* PATCH TRANSDERM SCH (08:14)
[2018-11-04] MEDS: Nystatin CREAM* 15 GM TUBE TOPICAL SCH (08:19)
[2018-11-04] MEDS ORDERED: ceFUROXime TAB(*) 250 MG PO SCH (09:00)
[2018-11-04] MEDS: Acetaminophen TAB* 325 MG PO PRN (11:15)
--- NOTE | 2018-11-04 12:45 | DS ---
CC: Sherrie Luther NP; Dr[facility] Jass Cho; [facility] * DATE OF ADMISSION: 10/23/2018. DATE OF DISCHARGE: 11/04/2018. DISCHARGE DIAGNOSES: 1. Acute blood loss anemia. 2. Upper GI bleed secondary to erosive esophagitis with ulcerations. Large hiatal hernia with Weston's lesions and three gastric ulcers. 3. Alcohol withdrawal. 4. Enterococcus UTI. 5. Severe protein calorie malnutrition. 6. Physical deconditioning. PAST MEDICAL HISTORY: 1. Alcohol abuse. 2. Hypertension. 3. Chronic left hip pain secondary to severe left hip osteoarthritis. 4. Tobacco abuse. 5. Iron deficiency anemia. MEDICATIONS AT THE TIME OF TRANSFER: 1. Acetaminophen 650 mg p.o. q.6 hours prn pain or fever. 2. Amlodipine 10 mg p.o. daily. 3. Cefuroxime 250 mg p.o. b.i.d. for 10 days. 4. Clonidine 0.2 mg patch topical change weekly. 5. Colace 100 mg p.o. b.i.d. 6. Ergocalciferol 50 mcg p.o. daily. 7. Ferrous Sulfate 325 mg p.o. daily. 8. Folic acid 1 mg p.o. daily. 9. Lisinopril 40 mg p.o. daily. 10. Milk of Magnesia 30 ml p.o. q.6 hours prn constipation. 11. Multivitamin one tablet p.o. daily. 12. Nicotine patch 14 mg topical daily remove at bedtime. 13. Pantoprazole 40 mg p.o. b.i.d. 14. MiraLax 17 gm p.o. daily as needed for constipation. 15. Tamsulosin 0.4 mg p.o. at bedtime. 16. Thiamine 100 mg p.o. daily. HOSPITAL COURSE: Mr. Markham is a 57-year-old male with a past medical history as stated above who presented to the emergency room on October 23 with complaints of vomiting blood. It was reported that he was vomiting dark red blood that had started in the evening of admission. For more details about his presentation, I refer you to his history and physical. The patient was found to have an initial hemoglobin of 12.8 and he was admitted for further evaluation and management. He was started on a PPI and seen in consultation by Gastroenterology (Dr. Cho). His impression was that the patient presented with hematemesis and he thought this was less likely a variceal bleed as he has no other signs, including increased INR, no thrombocytopenia. His recommendation was for endoscopy that the patient underwent on October 24. It showed an LA-D erosive esophagitis with ulcerations throughout, a large hiatal hernia with associated Weston erosions, and three gastric ulcerations, clean based. The recommendation was to continue PPI and to follow-up in three months for a repeat EGD. The patient's hospital stay was complicated by alcohol withdrawal that required benzodiazepines. He had confusion, hypertension, and tachycardia. A CT of the brain showed no acute intracranial pathology, only a remote left frontal infarct. The patient continued to improve slowly and eventually did not require Ativan anymore and on the day of discharge he is alert, awake, and oriented. He received education regarding the need to abstain from alcohol. Regarding his GI bleed, he had no further episodes of hematemesis while in the hospital and his H and H did not go below 10 and he did not require blood transfusions. The patient also developed urinary retention and was found to have a urinary tract infection. A Garner catheter was placed and he was started on Flomax. His urine culture grew enterococcus faecalis that was resistant to Quinupristin only. He was treated with Ceftriaxone and now he is being transitioned to Ceftin. He will need follow-up with Urology as an outpatient for a trial of a spontaneous void, but at this point he is being discharged with a Garner catheter. The patient was also found to have severe protein calorie malnutrition with greater than 7.5 percent weight loss in three months and he has been receiving Ensure supplements while in the hospital. His diet was liberalized to a regular diet to try and improve his p.o. intake. After the patient's withdrawal resolved, he worked with physical therapy and he was noted to have skilled needs and the plan is for him to be discharged to [facility] today to continue his rehabilitation process. His goal is to continue his treatments and to get to a point that he would be deemed medically fit to have his left hip replaced. The patient is medically stable for discharge today to continue his rehabilitation process at [facility]. PHYSICAL EXAMINATION: General: The patient is a pleasant, middle-aged gentleman who appears older than stated age, sitting up in bed in no acute distress. Vital Signs: Temperature 97, heart rate 65, respiratory rate 18, oxygen saturation 96 percent on room air, blood pressure 128/78. CVS: Normal S1, S2. Regular rate and rhythm. Chest: Breath sounds present bilaterally with no added sounds. Abdomen: Soft. Bowel sounds are present. Neuro: He is alert and oriented times three, able to move all four extremities. DIET: Regular diet. ACTIVITY: Continue PT/OT as tolerated. DISPOSITION: To [facility]. STATUS WHILE IN THE HOSPITAL: Inpatient. CONDITION ON DISCHARGE: Fair. Please keep in mind this is a summarized version of this patient's complex and prolonged hospital stay. If you need more information, please feel free to call me at or please obtain full medical records. TIME SPENT: Approximately 50 minutes were spent to complete this discharge. The patient's sister was updated at bedside about the plan and she is in agreement. [id number]/CPS #: [id number] MTDD
[2018-11-04 14:02] VITALS: BP 128/76
== END 2018-11-04 13:55 | DRG 380 ==
LOC: ED 18:28 → ICU 20:43 → MED 10-24 12:37
PROVIDERS: ADMIT Hospitalist; ATTEND Internal Medicine
PROC: 0T9B70Z Drainage of Bladder with Drainage Device, Via Natural or Artificial Opening (ICD-10-PCS; 2018-10-26)
PROC: 0DJ08ZZ Inspection of Upper Intestinal Tract, Via Natural or Artificial Opening Endoscopic (ICD-10-PCS; principal; 2018-10-29)
DX: K22.11 Ulcer of esophagus with bleeding (principal); E43 Unspecified severe protein-calorie malnutrition; F10.239 Alcohol dependence with withdrawal, unspecified; N39.0 Urinary tract infection, site not specified; D62 Acute posthemorrhagic anemia; I10 Essential (primary) hypertension; M16.12 Unilateral primary osteoarthritis, left hip; F17.210 Nicotine dependence, cigarettes, uncomplicated; Y90.7 Blood alcohol level of 200-239 mg/100 ml; K74.60 Unspecified cirrhosis of liver; F41.9 Anxiety disorder, unspecified; F32.9 Major depressive disorder, single episode, unspecified; K44.9 Diaphragmatic hernia without obstruction or gangrene; K25.9 Gastric ulcer, unspecified as acute or chronic, without hemorrhage or perforation; K27.4 Chronic or unspecified peptic ulcer, site unspecified, with hemorrhage; R33.9 Retention of urine, unspecified; G31.2 Degeneration of nervous system due to alcohol; B95.2 Enterococcus as the cause of diseases classified elsewhere; G89.29 Other chronic pain; Z80.1 Family history of malignant neoplasm of trachea, bronchus and lung; Z84.1 Family history of disorders of kidney and ureter
CPT/HCPCS: 36415; 70450; 80048; 80053; 80320; 81003; 81015; 82140; 82150; 82272; 82550; 83605; 83690; 83735; 83880; 84484; 85014; 85018; 85025; 85610; 85730; 86140; 86803; 86850; 86900; 86901; 87077; 87086; 87186; 87338; 87641; 93005; 99156; 99285; A9270-GY; G0480; G8978-GP-CK; G8979-GP-CI; J0360; J0696; J2060; J2250; J2270; J2354; J2405; J3010; J3411

== ENCOUNTER 2019-06-01 22:23 | Inpatient (IN) | payer OTHER ==
[2019-06-01] MEDS ORDERED: NS 0.9% 1000 ML** 1,000 ML IV ONE (22:54)
--- NOTE | 2019-06-01 22:54 | ED ---
Nausea/Vomiting/Diarrhea HPI - HPI Summary HPI Summary: Patient with history of EtOH, hiatal hernia, Boo's esophagus and gastric ulcer presents with several episodes of hematemesis. Patient denies any pain, appears mildly intoxicated. Admits to corner of a bottle of vodka today. Chronic EtOH. Family states patient was complaining of abdominal pain prior. Patient and family deny fever, cough, sore throat, CP, SOB, diarrhea, change in urine, change in BM. - History of Current Complaint Chief Complaint: EDNauseaVomitDiarrh Stated Complaint: THROWING UP BLOOD PER PT Time Seen by Provider: 06/01/19 22:49 Hx Obtained From: Patient, Family/Locomotive Operator Helper Onset/Duration: Sudden Onset, Lasting Hours Timing: Constant Severity Initially: Moderate Severity Currently: None Pain Intensity: 0 Pain Scale Used: 0-10 Numeric Alleviating Factor(s): Vomiting Nausea/Vomiting Presence: Vomiting Vomiting Characteristics: Bloody Diarrhea Presence: No - Allergies/Home Medications Allergies/Adverse Reactions: Allergies Allergy/AdvReac Type Severity Reaction Status Date / Time No Known Allergies Allergy Verified 06/15/17 17:27 PMH/Surg Hx/FS Hx/Imm Hx Endocrine/Hematology History: Denies: Hx Anticoagulant Therapy Cardiovascular History: Reports: Hx Hypertension Denies: Hx Pacemaker/ICD GI History: Reports: Hx Cirrhosis History: Denies: Hx Dialysis Musculoskeletal History: Reports: Hx Arthritis Sensory History: Reports: Hx Contacts or Glasses - glasses Denies: Hx Legally Blind, Hx Hearing Aid Opthamlomology History: Reports: Hx Contacts or Glasses - glasses Denies: Hx Legally Blind EENT History: Denies: Hx Deafness Psychiatric History: Reports: Hx Anxiety, Hx Depression, Hx Substance Abuse - Etoh abuse Denies: Hx Attention Deficit Hyperactivity Disorder, Hx Eating Disorder, Hx Panic Disorder, Hx Post Traumatic Stress Disorder, Hx Inpatient Treatment, Hx Community Mental Health Tx, Hx Schizophrenia, Hx Bipolar Disorder, Hx Suicide Attempt, Hx of Violent Episodes Against Others Infectious Disease History: No Infectious Disease History: Denies: Hx Clostridium Difficile, Hx Hepatitis, Hx Human Immunodeficiency Virus (HIV), Hx of Known/Suspected MRSA, Hx Shingles, Hx Tuberculosis, Traveled Outside the [place] in Last 30 Days - Family History Known Family History: Negative: Cardiac Disease, Diabetes Family History: Pt denies any family history. - Social History Alcohol Use: Daily Alcohol Amount: pt will not admit to it per sister Hx Substance Use: No Substance Use Type: Reports: None Hx Tobacco Use: Yes Smoking Status (MU): Light Every Day Tobacco Smoker Type: Cigarettes Length of Time of Smoking/Using Tobacco: 30 Have You Smoked in the Last Year: Yes Review of Systems Constitutional: Negative Eyes: Negative ENT: Negative Cardiovascular: Negative Respiratory: Negative Positive: Abdominal Pain, Vomiting Genitourinary: Negative Musculoskeletal: Negative Skin: Negative Neurological: Negative Psychological: Normal All Other Systems Reviewed And Are Negative: Yes Physical Exam - Summary Physical Exam Summary: Abdomen soft nontender. Positive blood in emesis. Patient appears in no apparent distress between episodes of vomiting no evidence of trauma. No evidence of diaphoresis, tremors, anxiety. Triage Information Reviewed: Yes Vital Signs On Initial Exam: Initial Vitals Temp Pulse Resp BP Pulse Ox 98.2 F 114 18 115/78 95 06/01/19 22:26 06/01/19 22:26 06/01/19 22:26 06/01/19 22:26 06/01/19 22:26 Vital Signs Reviewed: Yes Appearance: Positive: Well-Appearing Skin: Positive: Warm Head/Face: Positive: Normal Head/Face Inspection Eyes: Positive: Normal Dental: Negative: Dental Fracture @, Bleeding Neck: Positive: Supple Respiratory/Lung Sounds: Positive: Clear to Auscultation Cardiovascular: Positive: Normal Abdomen Description: Positive: Nontender Musculoskeletal: Positive: Normal Neurological: Positive: Normal Psychiatric: Positive: Normal AVPU Assessment: Alert - Doroteo Coma Scale Best Eye Response: 4 - Spontaneous Best Motor Response: 6 - Obeys Commands Best Verbal Response: 5 - Oriented Coma Scale Total: 15 Procedures - Sedation Patient Received Moderate/Deep Sedation with Procedure: No Diagnostics - Vital Signs Vital Signs Temp Pulse Resp BP Pulse Ox 06/01/19 22:26 98.2 F 114 18 115/78 95 - Laboratory Result Diagrams: 06/02/19 09:19 06/02/19 09:19 Lab Statement: Any lab studies that have been ordered have been reviewed, and results considered in the medical decision making process. Naus/Vom/Diarrhea Course/Dx - Course Course Of Treatment: Patient with history of EtOH, hiatal hernia, Boo's esophagus and gastric ulcer presents with several episodes of hematemesis. Patient denies any pain, appears mildly intoxicated. Admits to corner of a bottle of vodka today. Chronic EtOH. Family states patient was complaining of abdominal pain prior. Patient and family deny fever, cough, sore throat, CP, SOB, diarrhea, change in urine, change in BM. Heart rate 114. Vital signs otherwise within normal limits. PCP 12.5. PH 7.46. Lactic 3.7. Anion gap 15. EtOH 216. Vomiting controlled with antiemetics. 2 L normal saline administered. Banana bag administered. Ativan 1 mg IV. Patient continues to remain calm, nondiaphoretic without tremors on re-exams. Patient signed out to attending Dr. Huitron pending repeat lactic and repeat hemoglobin. - Differential Dx/Diagnosis Provider Diagnosis: Upper GI bleed, Alcohol abuse Condition At Discharge: Stable Discharge ED - Sign-Out/Discharge Documenting (check all that apply): Patient Departure - Discharge Plan Condition: Stable Disposition: ADMITTED TO [facility] - Billing Disposition and Condition Condition: STABLE Disposition: Admitted to [facility]
[2019-06-01] MEDS ORDERED: Pantoprazole IV* 40 MG IV ONE (22:56)
[2019-06-01] MEDS ORDERED: Ondansetron INJ* 2 MG/ML VIAL IV ONE (22:59)
[2019-06-01] MEDS ORDERED: Thiamine INJ* 100 MG, Folic Acid IV* 1 MG, Multiple Vitamin IV ADULT* 10 ML in NS 0.9% ... IV ONE (23:15)
[2019-06-01] MEDS ORDERED: LORazepam INJ* 2 MG/ML 1 ML VIAL IV ONE ×2 (23:16→23:33)
[2019-06-01] MEDS ORDERED: Lorazepam PYXIS KEY PRN ×2 (23:16→23:33)
[2019-06-01 23:17] LABS: ABS Basophils 0.1 10^3/ul (0-0.2); ABS Eosinophils 0.1 10^3/ul (0-0.6); ABS Lymphocytes 1.9 10^3/ul (1.0-4.8); ABS Monocytes 0.8 10^3/ul (0-0.8); ABS Neutrophils 6.3 10^3/ul (1.5-7.7); Eosinophil % 0.7 %; Hematocrit 39 % (42-52); Hemoglobin 12.5 g/dL (14.0-18.0); Lymphocyte % 21.1 %; Mean Corpuscular HGB Conc 32 g/dL (31-36); Mean Corpuscular Hemoglobin 24 pg (27-31); Mean Corpuscular Volume 75 fL (80-94); Mean Platelet Volume 7.6 fL (7.4-10.4); Platelet Count 350 10^3/uL (150-450); Red Blood Count 5.15 10^6 /uL (4.18-5.48); Red Cell Distribution Width 21 % (10-15); White Blood Count 9.2 10^3/uL (3.5-10.8)
[2019-06-01] MEDS ORDERED: Lorazepam PYXIS KEY ONE (23:27)
[2019-06-01 23:34] LABS: Albumin 4.2 g/dL (3.2-5.2); Albumin/Globulin Ratio 1.6 (1-3); BUN/Creatinine Ratio 10.4 (8-20); C Reactive Protein 1.05 mg/L (<8.01); Calcium 8.9 mg/dL (8.6-10.3); EGFR African American 86.2 (>60); EGFR Non-African American 71.3 (>60); Globulin 2.7 g/dL (2-4); Magnesium 2.2 mg/dL (1.9-2.7); Potassium 3.4 mmol/L (3.5-5.0); Total Bilirubin 0.5 mg/dL (0.2-1.0); Total Protein 6.9 g/dL (6.4-8.9)
[2019-06-01 23:36] LABS: INR 0.92 (0.82-1.09)
--- NOTE | 2019-06-02 00:08 | ED ---
Progress - Progress Note Progress Note: This is a 58 yr old pt with a Hx of alcoholism, seen by Vasquez Lakhani, for hematemesis. I saw the pt with Vasquez Lakhani and agree with his note. Please see his note for full HPI and ROS. My physical examination: general exam: patient sitting comfortably with no acute distress heart: RRR lungs: CTA Abd: soft, nontondender, nondistended, nml bowel sounds Plan: agree with [facility] plan. Course/Dx - Course Course Of Treatment: This is a 58 yr old pt with a Hx of alcoholism, seen by Vasquez Lakhani, for hematemesis. I saw the pt with Vasquez Lakhani and agree with his note. Please see his note for full HPI and ROS. My physical examination: general exam: patient sitting comfortably with no acute distress. heart: RRR. lungs: CTA. Abd: soft, nontondender, nondistended, nml bowel sounds. Plan: agree with [facility] plan. Consult with at 0335. Patient is accepted for admission. - Diagnoses Provider Diagnoses: Upper GI bleed, Alcohol abuse - Provider Notifications Discussed Care Of Patient With: Inez Levy Time Discussed With Above Provider: 03:35 Instructed by Provider To: Admit As Inpatient Discharge ED - Sign-Out/Discharge Documenting (check all that apply): Patient Departure - admit All imaging exams completed and their final reports reviewed: Yes - Discharge Plan Condition: Stable Disposition: ADMITTED TO [facility] - Billing Disposition and Condition Condition: STABLE Disposition: Admitted to [facility] - Attestation Statements Document Initiated by Scribe: Yes Documenting Scribe: Fabian Pineda Provider For Whom Vadim is Documenting (Include Credential): Lizzeth Henry MD Scribe Attestation: I, Fabian Pineda, scribed for Lizzeth Lilly MD on 06/02/19 at 1936. Scribe Documentation Reviewed: Yes Provider Attestation: The documentation as recorded by the Fabian walter accurately reflects the service I personally performed and the decisions made by me, Lizzeth Lilly MD Status of Scribe Document: Viewed
[2019-06-02] MEDS ORDERED: NS 0.9% 1000 ML** 1,000 ML IV ONE (01:15)
[2019-06-02 02:38] LABS: ABS Basophils 0.1 10^3/ul (0-0.2); ABS Eosinophils 0.1 10^3/ul (0-0.6); ABS Lymphocytes 1.2 10^3/ul (1.0-4.8); ABS Monocytes 0.8 10^3/ul (0-0.8); ABS Neutrophils 8.4 10^3/ul (1.5-7.7); Eosinophil % 0.5 %; Hematocrit 34 % (42-52); Hemoglobin 10.7 g/dL (14.0-18.0); Lymphocyte % 11.5 %; Mean Corpuscular HGB Conc 32 g/dL (31-36); Mean Corpuscular Hemoglobin 24 pg (27-31); Mean Corpuscular Volume 76 fL (80-94); Mean Platelet Volume 7.6 fL (7.4-10.4); Platelet Count 277 10^3/uL (150-450); Red Blood Count 4.44 10^6 /uL (4.18-5.48); Red Cell Distribution Width 21 % (10-15); White Blood Count 10.6 10^3/uL (3.5-10.8)
[2019-06-02] MEDS ORDERED: Pantoprazole IV* 40 MG IV ONE (03:55)
[2019-06-02] MEDS ORDERED: Lorazepam PYXIS KEY PRN ×2 (04:05→11:30)
--- NOTE | 2019-06-02 07:17 | HP ---
CC: Sherrie Luther NP * HISTORY AND PHYSICAL: DATE OF ADMISSION: 06/02/19 PRIMARY CARE PROVIDER: Sherrie Luther NP CHIEF COMPLAINT: Hematemesis. HISTORY OF PRESENT ILLNESS: Mr. Markham is a 58-year-old male who presents to the emergency room with complaint of hematemesis. He states that after lunch on 06/01/19 he began to vomit up demar blood. He did not report any violent nonbloody vomitus prior to vomiting up the blood. He did complain to his sister of abdominal and back pain. The patient was admitted to [facility] in October of 2018 for the exact same complaint and at that time he was found to have erosive esophagitis with ulcerations and a large hiatal hernia with associated Weston erosions. The patient also had three gastric ulcerations that were clean based. The patient believes that he has been taking Protonix, but he is not sure in fact he does not know any of the medications he is taking. His sister also does not have any idea. He denies taking any Advil, ibuprofen, naproxen, or Aleve. He does continue to drink alcohol on a daily basis. He tells me that he only drinks a shot and a half per day, though his sister shakes her head when he says this. He becomes very defensive, stating she does not know what she is talking about. The patient has had no fevers or chills. He has had no melena. PAST MEDICAL HISTORY: 1. Alcohol abuse. 2. Hypertension. 3. Tobacco abuse. 4. Iron-deficiency anemia. PAST SURGICAL HISTORY: Left hip arthroplasty March 2019. MEDICATIONS: Unknown. ALLERGIES: No known drug allergies. FAMILY HISTORY: Mom at the age of 82 of kidney failure. Dad in his 60s of lung cancer. SOCIAL HISTORY: The patient does smoke cigarettes or cigars. He lives alone. He is not . He does have 2 children. His sister, Shannon Mora, phone number [phone] is his healthcare proxy. REVIEW OF SYSTEMS: A complete 11-system review of systems is obtained. Pertinent positives and negatives are as per HPI and otherwise negative. PHYSICAL EXAMINATION GENERAL: The patient is a well-developed, middle-aged male, lying in the stretcher sleeping, easily awakening to voice and light touch, and in no acute distress. VITAL SIGNS: Blood pressure 123/82, pulse 79, respirations 15, temp 98, O2 sat 94% on room air. HEENT: Pupils are equal. Extraocular muscles are intact. Oropharynx is clear and moist. There is no submandibular, cervical, or supraclavicular adenopathy. PULMONARY: Lungs are clear to auscultation bilaterally. CARDIAC: Normal S1, S2. Regular rate and rhythm. I do not appreciate any murmurs. ABDOMEN: Bowel sounds are present. Abdomen is soft, nontender, nondistended. MUSCULOSKELETAL: The patient moves all 4 extremities symmetrically. NEURO: Cranial nerves II through XII are grossly intact. Sensation is intact to light touch throughout. Strength is 5/5 and symmetric in both upper and lower extremities bilaterally. PSYCH: The patient is alert. He is oriented x3. He is somewhat cranky when I am asking him questions. SKIN: Visible areas of skin are warm, dry and without rash. DIAGNOSTIC STUDIES/LAB DATA: WBC 9.2, hemoglobin 12.5, hematocrit 39, platelets 350. On recheck, hemoglobin dropped to 10.7 and hematocrit dropped to 34. INR 0.92. Sodium 143, potassium 3.4, chloride 100, CO2 28, BUN 11, creatinine 1.06, glucose 116, lactic acid 3.7 down to 2.3, calcium 8.9, magnesium 2.2. Bilirubin 0.5. AST 14, ALT 8, alk phos 71, CRP 1.05, albumin 4.2, lipase 22. Serum alcohol 216. Chest x-ray to my interpretation reveals a hiatal hernia, lungs are clear without infiltrate. ASSESSMENT AND PLAN: Mr. Markham is a 58-year-old male who is an alcoholic, who presents to the emergency room with complaints of hematemesis. 1. Hematemesis. The patient underwent EGD on 10/24/18. At that point, no esophageal varices were noted. The cause of his hematemesis in October was felt to be secondary to erosive esophagitis, Weston erosions, and gastric ulcerations. I suspect this remains the same at this point. It is unclear if the patient has actually been taking a PPI as prescribed. He does not seem to be the most fruitful historian. He will be admitted and placed on a Protonix drip. GI consultation will be requested. We will follow H and H serially. 2. Alcohol abuse. As above, the patient I believe is dramatically underestimating how much alcohol he drinks on a daily basis. He will be placed on the [facility] protocol with Ativan p.r.n. He is currently receiving a banana bag in the ER. We will follow for any signs of withdrawal. 3. Hypertension. The patient thinks he may take lisinopril on a daily basis, but this is not clear. I will hold off on ordering any medications at this point. His primary care provider should be contacted later today for an accurate medication list. 4. DVT prophylaxis: According to the adult thrombosis prophylaxis risk factor assessment guide, the patient has a total risk factor score of 1 making him low risk. SCDs alone will be used as DVT prophylaxis given the patient's upper GI bleed. 5. Code status is full. TIME SPENT: Sixty-five minutes was spent admitting this patient. [id number]/CPS #: [id number] MTDD
[2019-06-02] MEDS ORDERED: Octreotide Acetate* 50 MCG in NS 0.9% 50 ML* 50 ML IV ONE (07:30)
[2019-06-02] MEDS: NS 0.9% 1000 ML** 1,000 ML IV SCH ×2 (08:27→22:32)
[2019-06-02 09:27] LABS: Hematocrit 34 % (42-52); Hemoglobin 10.7 g/dL (14.0-18.0); Mean Corpuscular HGB Conc 32 g/dL (31-36); Mean Corpuscular Hemoglobin 24 pg (27-31); Mean Corpuscular Volume 76 fL (80-94); Mean Platelet Volume 7.3 fL (7.4-10.4); Platelet Count 267 10^3/uL (150-450); Red Blood Count 4.48 10^6 /uL (4.18-5.48); Red Cell Distribution Width 21 % (10-15); White Blood Count 6.6 10^3/uL (3.5-10.8)
[2019-06-02 09:44] LABS: BUN/Creatinine Ratio 13.9 (8-20); EGFR African American 121.1 (>60); Potassium 3.7 mmol/L (3.5-5.0)
[2019-06-02] MEDS: Pantoprazole* 80 mg IN NS 80 MG/250 ML BAG IV SCH ×3 (10:12→22:50)
[2019-06-02] MEDS: LORazepam INJ* 2 MG/ML 1 ML VIAL IV PUSH SCH ×2 (12:18→19:54)
[2019-06-02] MEDS ORDERED: fentaNYL* 50 MCG/ML 2 ML VIAL (100 MCG VIAL) ONE (12:54)
[2019-06-02] MEDS ORDERED: Midazolam* 1 MG/ML 10 ML VIAL (10 MG) ONE (12:54)
[2019-06-02 15:38] LABS: Urine Appearance Clear; Urine Bilirubin Negative (Negative); Urine Blood Negative (Negative); Urine Color Yellow; Urine Glucose Negative (Negative); Urine Ketones Trace (Negative); Urine Nitrite Negative (Negative); Urine Protein Negative (Negative); Urine Specific Gravity 1.012 (1.010-1.030); Urine Urobilinogen Negative (Negative)
--- NOTE | 2019-06-02 16:30 | PN ---
Subjective Date of Service: 06/02/19 Interval History: Patient was a bit drowsy when I met him today. No more hematemesis recurring after admission, no black/bloody stool. He claimed that he only drank 1 shot, never had any alcohol withdrawal leading to hospitalization before. Objective Active Medications: Pantoprazole Sodium (Protonix Iv Bag*) 80 mg in 250 mls @ 25 mls/hr IV Q10H [facility] Last Admin: 06/02/19 15:33 Dose: Not Given Sodium Chloride (Ns 0.9% 1000 Ml) 1,000 mls @ 100 mls/hr IV PER RATE [facility] Last Admin: 06/02/19 08:27 Dose: 100 mls/hr Lorazepam (Ativan Inj*) 0 mg IV PUSH Q2H PRN; Protocol PRN Reason: alcohol withdrawal Lorazepam (Ativan Inj*) 1 mg IV PUSH Q8H [facility] Last Admin: 06/02/19 12:18 Dose: 1 mg Miscellaneous (Ativan Pyxis Jackman) 1 ea N/A .ATIVAN IV JACKMAN PRN PRN Reason: PYXIS JACKMAN Ondansetron HCl (Zofran Inj*) 4 mg IV Q6H PRN PRN Reason: NAUSEA Vital Signs - 8 hr 06/02/19 06/02/19 06/02/19 10:01 12:18 15:00 Temperature 97.8 F 98.2 F Pulse Rate 72 54 Respiratory 14 15 14 Rate Blood Pressure 131/87 131/81 (mmHg) O2 Sat by Pulse 93 98 Oximetry 06/02/19 15:15 Temperature Pulse Rate Respiratory 14 Rate Blood Pressure (mmHg) O2 Sat by Pulse Oximetry Oxygen Devices in Use Now: None Exam: Appearance: NAD, drowsy, but able to answer all questions Ears/Nose/Mouth/Throat: Clear Oropharnyx, Mucous Membranes Moist, no blood seen. Respiratory: Symmetrical Chest Expansion and Respiratory Effort, clear on auscultation. Cardiovascular: NL Sounds; No Murmurs; No JVD, RRR Abdominal: NL Sounds; No Tenderness; No Distention, mildly enlarged liver and spleen, no spider nevi. Extremities: No Edema Neurological: Alert and Oriented x 3 Result Diagrams: 06/03/19 04:50 06/03/19 04:50 Additional Lab and Data: lactic acid: 1.7 Assess/Plan/Problems-Billing Assessment: Hubert Markham is a 58 years old gentleman with history of alcohol abuse, HTN, tobacco abuse, ARLET, history of esophagitis and hiatal hernia revealed in endoscopy in October 2018, presented with hematemesis, found to have mild Hb drop by 1-2. We are working up for his hematemesis. - Patient Problems (1) Hematemesis Current Visit: Yes Status: Acute Priority: High Code(s): K92.0 - HEMATEMESIS SNOMED Code(s): 5773635 Comment: - no more bleeding since admisison - endoscopy today revealed a large hiatal hernia, and twisted esophagus with obvious ulcer or bleeding seen - continue iv ppi - do upper GI study (2) Alcohol abuse Current Visit: Yes Status: Acute Priority: Medium Code(s): F10.10 - ALCOHOL ABUSE, UNCOMPLICATED SNOMED Code(s): 96602200 Comment: - alcohol level 200+ on admission - large drink 06/02 night - put on [facility] protocol, seizure prophylaxis with iv ativan q8h also symptom triggered ativan dose - thiamine, iv fluid - need to look into alcohol rehab program on discharge (3) Hypertension Current Visit: No Status: Acute Priority: Medium Code(s): I10 - ESSENTIAL (PRIMARY) HYPERTENSION SNOMED Code(s): 34663140 Comment: - history, but he is not taking medication for quite some time, last med record in [facility] was in 2018 - watch bp (4) DVT prophylaxis Current Visit: No Status: Acute Priority: Low Code(s): IJZ9650 - SNOMED Code(s): 589992619 Comment: - SCDs only in the setting of GI bleed for now Status and Disposition: Inpatient Medicine. Attestation Documenting Resident: Emy Vuong Supervising Physician: Gordy Prater Attending/Supervising Physician Comment: Patient here with upper GI bleed, alcohol withdrawal. EGD showed small erosion, no varices, no large ulcers. Will advance diet, observe for alcohol WD. Attestation: This service has been performed in part by a resident under the direction of a teaching physician.I, Gordy Prater, performed the service, or was physically present during the critical, or jackman portions of the service, furnished by the resident. I participated in the management of the patient.
--- NOTE | 2019-06-02 19:01 | CONS ---
CC: Dr. Vuong * GASTROENTEROLOGY CONSULT REPORT: DATE OF CONSULT: 06/02/19 REQUESTING PROVIDER: Dr. Vuong. REASON FOR CONSULT: Hematemesis. HISTORY OF PRESENT ILLNESS: Mr. Markham is a 58-year-old gentleman with a history of alcoholism, hypertension, iron deficiency anemia, and GERD complicated by esophagitis, who is admitted with coffee-ground emesis/ hematemesis. History obtained largely from his chart as the patient is an unreliable historian. He has apparently a longstanding history of alcohol abuse, which he minimizes. Alcohol level on admission was over 200. He was hospitalized in October with hematemesis. EGD at that time revealed severe erosive esophagitis, large hiatal hernia, and several Weston erosions. He was placed on PPI. He did not follow up as requested by GI. Current presentation is very similar. It appears that sometime yesterday (time varies based on report), the patient had several episodes of either coffee-ground emesis or hematemesis. The patient reportedly commented on abdominal pain around that time, although he now denies any pain. He has not had any bowel movements, so he denies any melena or hematochezia. He believes that he has been taking pantoprazole as prescribed, although there has been some question if that is accurate. Denies any NSAID use. Again, he denies drinking alcohol on a daily basis, although he presented to the ED intoxicated. His sister reportedly indicated that he was drinking daily. PAST MEDICAL HISTORY: 1. Alcoholism. 2. Hypertension. 3. Tobacco abuse. 4. Iron deficiency anemia. 5. GERD with esophagitis. 6. Large hiatal hernia. PAST SURGICAL HISTORY: Left hip arthroplasty. MEDICATIONS: Unable to verify, although the patient's list does include pantoprazole 40 mg twice daily and ferrous sulfate 325 mg daily. ALLERGIES: No known drug allergies. FAMILY HISTORY: No family history of GI or liver disease. SOCIAL HISTORY: The patient reportedly smokes and drinks alcohol on a daily basis. No drug use reported. REVIEW OF SYSTEMS: A 12 point complete review of systems is negative except as mentioned above. PHYSICAL EXAM: Vital Signs: Afebrile, heart rate 50, blood pressure 146/80, 95% on room air. General: Chronically ill-appearing gentleman, in no acute distress. HEENT: Mucous membranes are moist. No dried blood seen in oropharynx. Cardiovascular: Regular rate and rhythm. Pulmonary: Breathing comfortably. Abdomen: Soft, nontender, nondistended. Extremities: No significant edema. Neuro: The patient seems to be AO x3, although he is quite lethargic. DIAGNOSTIC STUDIES/LAB DATA: Labs demonstrate a white of 6.6 with a hemoglobin 10.7 and hematocrit of 34. This is stable from labs checked 7 hours prior, but down from 12.5 and 39 yesterday. MCV 76. Potassium 3.4 on admission and 3.7 on recheck. Lactic acid 3.7 on admission and down to 1.7. Serum alcohol level 216 on admission. INR normal. AST, ALT, alk phos, and bilirubin are normal. Imaging: Chest x-ray with a large hiatal hernia seen, but otherwise no acute findings. IMPRESSION AND RECOMMENDATION: Mr. Markham is a 58-year-old gentleman with a history of alcoholism, gastroesophageal reflux disease with severe esophagitis, and a large hiatal hernia, who is admitted with coffee-ground emesis versus hematemesis. The patient is hemodynamically stable. Labs are demonstrating a mild drop in his hemoglobin to 10.7. His MCV remains low suggestive of ongoing iron deficiency. It is unclear if he has been taking his PPI for the severe esophagitis seen in October. Differential therefore certainly includes ongoing erosive esophagitis, peptic ulcer disease, and hiatal hernia-related Weston erosions. Esophageal varices unlikely given the absence of liver disease in his history. I agree with PPI IV b.i.d. Please keep n.p.o.. We will plan for EGD this afternoon to assess further. Thank you very much for this consult. [id number]/[facility] #: [id number] [address] [facility]
[2019-06-02] MEDS: LORazepam INJ* 2 MG/ML 1 ML VIAL IV PUSH PRN (22:33)
[2019-06-02] MEDS: Ondansetron INJ* 2 MG/ML VIAL IV PRN (22:33)
--- NOTE | 2019-06-03 00:08 | PRO ---
CC: Dr. Vuong; Dr. Cho * DATE OF PROCEDURE: 06/02/19 - ROOM #[id number] REQUESTING PROVIDER: Dr. Vuong. PROCEDURE: EGD. INDICATION: The patient was admitted after several episodes of coffee-ground emesis/hematemesis. Hemoglobin did drift down a bit from 12.5 to 10.7. No recurrent episodes since admission. Normal bowel movements. The patient had an EGD in October for similar presentation and was noted to have Weston erosions in a hiatal hernia as well as severe LA grade D esophagitis. MEDICATIONS GIVEN: Midazolam 8 mg IV, Fentanyl 50 mcg IV. DESCRIPTION OF PROCEDURE: Full disclosure of risks was reviewed with the patient as detailed on the consent form. The patient was placed in the left lateral decubitus position and monitored with continuous pulse oximetry, capnography, interval blood pressure monitoring, and direct observation. A bite block was placed between the patient's teeth. An adult gastroscope was then inserted into the patient's mouth and advanced down the esophagus, into the stomach, and into the distal duodenum. Findings and interventions are described below. FINDINGS: Esophagus was a markedly tortuous structure. No esophagitis appreciated. No erosions or ulcers. No varices. The GE junction appeared to occur around 35 cm. Scope was then advanced into a very large hiatal hernia sac. There was a large amount of bubbles in the hiatal hernia. Simethicone was used to wash the bubbles with moderately good effect. No fresh or old blood seen. There were a few small erosions in the hiatal hernia sac. The hernia was very large (10 cm) and challenging to navigate through. Ultimately, I was able to advance into the remainder of the stomach. Stomach was examined in the forward and retroflexed views. There was no fresh or old blood. No erosions or ulcers. Mucosa was normal. Scope was then advanced to the duodenum to at least a third portion. Duodenal mucosa was normal in appearance. No erosions or ulcers. No fresh or old blood. Scope was then withdrawn from the patient. The patient tolerated the procedure well and was recovered in the GI recovery area. IMPRESSION: 1. Complete upper endoscopy to the distal duodenum. 2. Large hiatal hernia (10 cm) versus paraesophageal hernia. 3. Very tortuous esophagus. 4. No fresh or old blood. Small erosion seen in the hiatal hernia sac. Possible source of the hematemesis, although this finding was relatively unimpressive. FOLLOWUP: 1. Recommend esophagram to evaluate the esophagus and hiatal hernia further as exam was impressive. 2. Continue PPI twice daily. 3. Can restart clear diet. Advance as tolerated. Thank you very much for this referral. [id number]/[facility] #: [id number] SHERYL
[2019-06-03] MEDS: LORazepam INJ* 2 MG/ML 1 ML VIAL IV PUSH PRN ×4 (00:16→07:11)
[2019-06-03] MEDS: Ondansetron INJ* 2 MG/ML VIAL IV PRN (03:54)
[2019-06-03] MEDS: LORazepam INJ* 2 MG/ML 1 ML VIAL IV PUSH SCH ×3 (03:54→20:41)
[2019-06-03] MEDS ORDERED: PROCHLORPERAZINE INJ 5 MG/ML 2 ML VIAL ONE (04:55)
[2019-06-03] MEDS ORDERED: Morphine 10 MG/ML VIAL (1 ml) IV ONE (05:10)
[2019-06-03 05:44] LABS: ABS Lymphocytes 0.9 10^3/ul (1.0-4.8); ABS Monocytes 0.6 10^3/ul (0-0.8); ABS Neutrophils 5.7 10^3/ul (1.5-7.7); Eosinophil % 0.5 %; Hematocrit 38 % (42-52); Hemoglobin 11.8 g/dL (14.0-18.0); Lymphocyte % 12.8 %; Mean Corpuscular HGB Conc 32 g/dL (31-36); Mean Corpuscular Hemoglobin 24 pg (27-31); Mean Corpuscular Volume 76 fL (80-94); Mean Platelet Volume 7.9 fL (7.4-10.4); Platelet Count 269 10^3/uL (150-450); Red Blood Count 4.98 10^6 /uL (4.18-5.48); Red Cell Distribution Width 21 % (10-15); White Blood Count 7.3 10^3/uL (3.5-10.8)
[2019-06-03 06:01] LABS: BUN/Creatinine Ratio 10.1 (8-20); Calcium 8.8 mg/dL (8.6-10.3); EGFR African American 141.5 (>60); Potassium 3.3 mmol/L (3.5-5.0)
[2019-06-03] MEDS ORDERED: Acetaminophen TAB* 325 MG PO PRN (07:54)
[2019-06-03] MEDS ORDERED: Lorazepam PYXIS KEY PRN (08:08)
[2019-06-03] MEDS ORDERED: LORazepam INJ* 2 MG/ML 1 ML VIAL IV PUSH ONE (08:08)
[2019-06-03] MEDS ORDERED: PROCHLORPERAZINE INJ 5 MG/ML 2 ML VIAL IV PRN (08:09)
[2019-06-03] MEDS: NS 0.9% 1000 ML** 1,000 ML IV SCH ×2 (08:55→17:37)
[2019-06-03] MEDS ORDERED: Pantoprazole TAB * 40 MG TAB PO SCH (09:00)
[2019-06-03] MEDS ORDERED: amLODIPine TAB* 5 MG PO SCH (09:00)
[2019-06-03] MEDS ORDERED: Thiamine TAB* 100 MG TAB PO SCH (09:00)
[2019-06-03] MEDS: ERGOCALCIFEROL 50 MCG PO SCH (09:46)
[2019-06-03] MEDS: Multivitamins/Minerals TAB PO SCH (09:46)
[2019-06-03] MEDS: Ferrous Sulfate TAB* 325 MG PO SCH (10:04)
[2019-06-03] MEDS: Folic Acid TAB* 1 MG PO SCH (10:13)
[2019-06-03] MEDS: Lisinopril TAB* 10 MG PO SCH (10:14)
[2019-06-03] MEDS: Potassium Chlor TAB* 20 MEQ TAB.ER PO SCH ×2 (10:14→20:40)
[2019-06-03] MEDS: Thiamine TAB* 100 MG TAB PO SCH (10:14)
[2019-06-03] MEDS: Pantoprazole IV* 40 MG IV SCH ×2 (10:16→20:41)
[2019-06-03 10:54] LABS: ABS Lymphocytes 0.6 10^3/ul (1.0-4.8); ABS Monocytes 0.8 10^3/ul (0-0.8); ABS Neutrophils 8.9 10^3/ul (1.5-7.7); Eosinophil % 0.1 %; Hematocrit 37 % (42-52); Hemoglobin 11.8 g/dL (14.0-18.0); Lymphocyte % 5.6 %; Mean Corpuscular HGB Conc 32 g/dL (31-36); Mean Corpuscular Hemoglobin 24 pg (27-31); Mean Corpuscular Volume 75 fL (80-94); Mean Platelet Volume 7.3 fL (7.4-10.4); Platelet Count 289 10^3/uL (150-450); Red Blood Count 4.92 10^6 /uL (4.18-5.48); Red Cell Distribution Width 21 % (10-15); White Blood Count 10.4 10^3/uL (3.5-10.8)
[2019-06-03] MEDS: KCL 10 MEQ/50 ML IVPREMIX* 10 MEQ/50 ML BAG IV SCH ×2 (11:00→12:31)
[2019-06-03 11:17] LABS: C Reactive Protein 6.24 mg/L (<8.01); Magnesium 1.4 mg/dL (1.9-2.7)
[2019-06-03] MEDS ORDERED: Magnesium Sulfate 2 GM IV* 2 GM/50 ML BAG IVPB ONE (13:19)
[2019-06-03] MEDS ORDERED: cefTRIAXone(*) 1 GM in NS 0.9% 50 ML* 50 ML IVPB SCH (13:30)
[2019-06-03] MEDS ORDERED: Azithromycin 500 mg/250 ml NS 500 MG/250 ML BAG IVPB SCH (14:00)
--- NOTE | 2019-06-03 14:50 | PN ---
Subjective Date of Service: 06/03/19 Interval History: Patient vomited 3-4 episodes, coffee ground vomitus in the morning. Also noticed to be more agitated. Overnight he fell down after he urinated on the floor last night, no complain of pain. Objective Active Medications: Acetaminophen (Tylenol Tab*) 650 mg PO Q6H PRN PRN Reason: PAIN Ferrous Sulfate (Ferrous Sulfate Tab*) 325 mg PO DAILY [facility] Last Admin: 06/03/19 10:04 Dose: Not Given Folic Acid (Folvite Tab*) 1 mg PO DAILY [facility] Last Admin: 06/03/19 10:13 Dose: Not Given Sodium Chloride (Ns 0.9% 1000 Ml) 1,000 mls @ 100 mls/hr IV PER RATE [facility] Last Admin: 06/03/19 08:55 Dose: 100 mls/hr Piperacillin Sod/Tazobactam (Sod 3.375 gm/ Sodium Chloride) 50 mls @ 100 mls/ hr IVPB ONCE ONE Stop: 06/03/19 17:29 Lisinopril (Prinivil Tab*) 40 mg PO DAILY [facility] Last Admin: 06/03/19 10:14 Dose: Not Given Lorazepam (Ativan Inj*) 0 mg IV PUSH Q2H PRN; Protocol PRN Reason: alcohol withdrawal Last Admin: 06/03/19 07:11 Dose: 2 mg Lorazepam (Ativan Inj*) 1 mg IV PUSH Q8H [facility] Last Admin: 06/03/19 12:28 Dose: 1 mg Miscellaneous (Ativan Pyxis Jackman) 1 ea N/A .ATIVAN IV JACKMAN PRN PRN Reason: PYXIS JACKMAN Multivitamins/Minerals (Theragran/Minerals Tab*) 1 tab PO DAILY [facility] Last Admin: 06/03/19 09:46 Dose: Not Given Nf:Ergocalciferol ( Vitamin D2) [Vitamin D2] 50 Mcg 50 mcg PO DAILY [facility] Last Admin: 06/03/19 09:46 Dose: Not Given Ondansetron HCl (Zofran Inj*) 4 mg IV Q6H PRN PRN Reason: NAUSEA Last Admin: 06/03/19 03:54 Dose: 4 mg Pantoprazole Sodium (Protonix Iv*) 40 mg IV BID [facility] Last Admin: 06/03/19 10:16 Dose: 40 mg Pharmacy Consult (Zosyn Per Pharmacy*) 1 note FOLLOW UP .ZOSYN PER PHARMACY [facility] Potassium Chloride (Klor Con Er Tab*) 20 meq PO BID [facility] Stop: 06/05/19 08:59 Last Admin: 06/03/19 10:14 Dose: Not Given Prochlorperazine Edisylate (Compazine Inj*) 2.5 mg IV Q6H PRN PRN Reason: NAUSEA/VOMITING Last Admin: 06/03/19 08:49 Dose: 2.5 mg Thiamine HCl (Vitamin B-1 Tab*) 100 mg PO DAILY [facility] Last Admin: 06/03/19 10:14 Dose: Not Given Vital Signs - 8 hr 06/03/19 06/03/19 06/03/19 06:46 07:11 07:28 Temperature 98.5 F Pulse Rate 111 Respiratory 20 20 20 Rate Blood Pressure 143/94 (mmHg) O2 Sat by Pulse 98 Oximetry 06/03/19 06/03/19 06/03/19 08:15 08:48 09:50 Temperature 99.5 F Pulse Rate 112 Respiratory 24 20 28 Rate Blood Pressure 150/94 (mmHg) O2 Sat by Pulse 98 Oximetry 06/03/19 06/03/19 06/03/19 09:51 11:07 12:28 Temperature 100.5 F 100.8 F Pulse Rate 116 101 Respiratory 28 24 18 Rate Blood Pressure 131/84 142/89 (mmHg) O2 Sat by Pulse 95 96 Oximetry 06/03/19 06/03/19 13:20 13:30 Temperature 99.8 F Pulse Rate 99 Respiratory 20 20 Rate Blood Pressure 122/80 (mmHg) O2 Sat by Pulse 96 Oximetry Oxygen Devices in Use Now: None Exam: Appearance: sleepy, unable to answer to questions appropriately Head: atraumatic/normacephalic Ears/Nose/Mouth/Throat: Clear Oropharnyx, Mucous Membranes Moist, no blood seen. Respiratory: Symmetrical Chest Expansion and Respiratory Effort, unable to auscultate properly Cardiovascular: NL sounds; No Murmurs; No JVD, RRR Abdominal: NL Sounds; No Tenderness; No Distention, mildly enlarged liver and spleen, no spider nevi. Extremities: No Edema,no tenderness on joints and spine Neurological: sleepy Result Diagrams: 06/04/19 06:05 06/04/19 06:05 Additional Lab and Data: lactic acid: 1.7 Assess/Plan/Problems-Billing Assessment: Hubert Markham is a 58 years old gentleman with history of alcohol abuse, HTN, tobacco abuse, ARLET, history of esophagitis and hiatal hernia revealed in endoscopy in October 2018, presented with hematemesis, found possibly Helga Mcintosh tear under endoscopy. - Patient Problems (1) Hematemesis Current Visit: Yes Status: Acute Priority: High Code(s): K92.0 - HEMATEMESIS SNOMED Code(s): 9820123 Comment: - still ongoing - endoscopy today revealed a large hiatal hernia, and twisted esophagus with no obvious ulcer or bleeding seen, likely helga mcintosh tear - continue iv ppi - do upper GI study when patient is more alert - continue to trend hb, no significant hb drop today (2) Aspiration pneumonia Current Visit: Yes Status: Acute Priority: High Code(s): J69.0 - PNEUMONITIS DUE TO INHALATION OF FOOD AND VOMIT SNOMED Code(s): 316335559 Comment: new today new fever, cxr found right middle lobe opacity likely aspiration pneumonia occuring after vomiting iv zosyn for now trace bld cs (3) Alcohol withdrawal Current Visit: No Status: Acute Priority: Medium Code(s): F10.239 - ALCOHOL DEPENDENCE WITH WITHDRAWAL, UNSPECIFIED SNOMED Code(s): 368823551 Comment: - high CIWA score - extra dose of ativan was given this morning - continue scheduled ativan for seizure prophylaxis and symptom triggered ativan dose - seizure prevention - alcohol level 200+ on admission - large drink 06/02 night (4) Alcohol abuse Current Visit: Yes Status: Acute Priority: Medium Code(s): F10.10 - ALCOHOL ABUSE, UNCOMPLICATED SNOMED Code(s): 15304518 Comment: - need to look into alcohol rehab program though patient declined in the past (5) Hypertension Current Visit: No Status: Acute Priority: Medium Code(s): I10 - ESSENTIAL (PRIMARY) HYPERTENSION SNOMED Code(s): 60257922 Comment: - history, but he is not taking medication for quite some time, [facility] - watch bp (6) DVT prophylaxis Current Visit: No Status: Acute Priority: Low Code(s): ONE3265 - SNOMED Code(s): 903137444 Comment: - SCDs only in the setting of GI bleed for now Status and Disposition: Inpatient Medicine. Attestation Documenting Resident: Emy Vuong Supervising Physician: Gordy Prater Attending/Supervising Physician Comment: Patient is now suffering from aspiration PNA, and requiring significant PRN ativan per [facility] protocol. Discussed management with Dr. Vuong and sister. Attestation: This service has been performed in part by a resident under the direction of a teaching physician.I, Gordy Prater, performed the service, or was physically present during the critical, or jackman portions of the service, furnished by the resident. I participated in the management of the patient.
[2019-06-03] MEDS ORDERED: Zosyn per Pharmacy* NOTE FOLLOW UP SCH (15:00)
[2019-06-03] MEDS ORDERED: PIPERACILLIN IVPB ONE (17:00)
[2019-06-03] MEDS ORDERED: NS 0.9% IVPB ONE (17:00)
[2019-06-03] MEDS ORDERED: TAZOBAC ADVAN IVPB ONE (17:00)
[2019-06-03] MEDS: ZOSYN 3.375 GM Q8H per EXTENDED INFUSION IVPB SCH ×2 (20:45)
[2019-06-04] MEDS: LORazepam INJ* 2 MG/ML 1 ML VIAL IV PUSH SCH ×3 (03:21→21:18)
[2019-06-04] MEDS: NS 0.9% 1000 ML** 1,000 ML IV SCH ×2 (04:47→15:30)
[2019-06-04] MEDS: ZOSYN 3.375 GM Q8H per EXTENDED INFUSION IVPB SCH ×6 (04:47→21:14)
[2019-06-04 06:31] LABS: ABS Basophils 0.1 10^3/ul (0-0.2); ABS Eosinophils 0.2 10^3/ul (0-0.6); ABS Lymphocytes 1.4 10^3/ul (1.0-4.8); ABS Monocytes 0.7 10^3/ul (0-0.8); Eosinophil % 2.4 %; Hematocrit 31 % (42-52); Hemoglobin 9.8 g/dL (14.0-18.0); Lymphocyte % 16.3 %; Mean Corpuscular HGB Conc 32 g/dL (31-36); Mean Corpuscular Hemoglobin 24 pg (27-31); Mean Corpuscular Volume 75 fL (80-94); Platelet Count 208 10^3/uL (150-450); Red Blood Count 4.11 10^6 /uL (4.18-5.48); Red Cell Distribution Width 21 % (10-15); White Blood Count 8.3 10^3/uL (3.5-10.8)
[2019-06-04 06:44] LABS: Calcium 8.1 mg/dL (8.6-10.3); Potassium 3.4 mmol/L (3.5-5.0)
[2019-06-04 06:50] LABS: BUN/Creatinine Ratio 13.4 (8-20); EGFR Non-African American 95.8 (>60)
[2019-06-04] MEDS: ERGOCALCIFEROL 50 MCG PO SCH (07:42)
[2019-06-04] MEDS ORDERED: Magnesium Sulfate 2 GM IV* 2 GM/50 ML BAG IVPB ONE (08:38)
[2019-06-04] MEDS: Potassium Chlor TAB* 20 MEQ TAB.ER PO SCH ×2 (09:31→21:19)
[2019-06-04] MEDS: Multivitamins/Minerals TAB PO SCH (09:31)
[2019-06-04] MEDS: Pantoprazole IV* 40 MG IV SCH ×2 (09:31→21:18)
[2019-06-04] MEDS: KCL 10 MEQ/50 ML IVPREMIX* 10 MEQ/50 ML BAG IV SCH ×2 (09:32→11:39)
[2019-06-04] MEDS: Thiamine TAB* 100 MG TAB PO SCH (09:32)
[2019-06-04] MEDS: Folic Acid TAB* 1 MG PO SCH (09:32)
[2019-06-04] MEDS: Lisinopril TAB* 10 MG PO SCH (09:32)
[2019-06-04] MEDS: Ferrous Sulfate TAB* 325 MG PO SCH (09:32)
--- NOTE | 2019-06-04 16:57 | PN ---
Subjective Date of Service: 06/04/19 Interval History: D3 admission Patient has low WAM score overnight. This morning he was drowsy when I met him, couldn't answer questions appropriately, doze off jail during conversation. No more hematemesis noted, no tarry stool recorded Objective Active Medications: Acetaminophen (Tylenol Tab*) 650 mg PO Q6H PRN PRN Reason: PAIN Ferrous Sulfate (Ferrous Sulfate Tab*) 325 mg PO DAILY [facility] Last Admin: 06/04/19 09:32 Dose: 325 mg Folic Acid (Folvite Tab*) 1 mg PO DAILY [facility] Last Admin: 06/04/19 09:32 Dose: 1 mg Sodium Chloride (Ns 0.9% 1000 Ml) 1,000 mls @ 100 mls/hr IV PER RATE [facility] Last Admin: 06/04/19 04:47 Dose: 100 mls/hr Piperacillin Sod/Tazobactam (Sod 3.375 gm/ Sodium Chloride) 100 mls @ 25 mls/ hr IVPB Q8H [facility] Last Admin: 06/04/19 14:07 Dose: 25 mls/hr Lisinopril (Prinivil Tab*) 40 mg PO DAILY [facility] Last Admin: 06/04/19 09:32 Dose: 40 mg Lorazepam (Ativan Inj*) 0 mg IV PUSH Q2H PRN; Protocol PRN Reason: alcohol withdrawal Last Admin: 06/03/19 07:11 Dose: 2 mg Lorazepam (Ativan Inj*) 1 mg IV PUSH Q12H [facility] Last Admin: 06/04/19 09:33 Dose: 1 mg Miscellaneous (Ativan Pyxis Jackman) 1 ea N/A .ATIVAN IV JACKMAN PRN PRN Reason: PYXIS AJCKMAN Multivitamins/Minerals (Theragran/Minerals Tab*) 1 tab PO DAILY [facility] Last Admin: 06/04/19 09:31 Dose: 1 tab Nf:Ergocalciferol ( Vitamin D2) [Vitamin D2] 50 Mcg 50 mcg PO DAILY [facility] Last Admin: 06/04/19 07:42 Dose: Not Given Ondansetron HCl (Zofran Inj*) 4 mg IV Q6H PRN PRN Reason: NAUSEA Last Admin: 06/03/19 03:54 Dose: 4 mg Pantoprazole Sodium (Protonix Iv*) 40 mg IV BID [facility] Last Admin: 06/04/19 09:31 Dose: 40 mg Pharmacy Consult (Zosyn Per Pharmacy*) 1 note FOLLOW UP .ZOSYN PER PHARMACY [facility] Potassium Chloride (Klor Con Er Tab*) 20 meq PO BID [facility] Stop: 06/05/19 08:59 Last Admin: 06/04/19 09:31 Dose: 20 meq Prochlorperazine Edisylate (Compazine Inj*) 2.5 mg IV Q6H PRN PRN Reason: NAUSEA/VOMITING Last Admin: 06/03/19 08:49 Dose: 2.5 mg Thiamine HCl (Vitamin B-1 Tab*) 100 mg PO DAILY [facility] Last Admin: 06/04/19 09:32 Dose: 100 mg Vital Signs - 8 hr 06/04/19 06/04/19 06/04/19 09:00 09:33 11:00 Temperature 97.5 F 97.5 F Pulse Rate 87 67 Respiratory 16 17 16 Rate Blood Pressure 116/73 105/72 (mmHg) O2 Sat by Pulse 100 94 Oximetry 06/04/19 06/04/19 13:00 15:00 Temperature 98.2 F 98.2 F Pulse Rate 69 66 Respiratory 17 16 Rate Blood Pressure 101/55 105/65 (mmHg) O2 Sat by Pulse 98 92 Oximetry Oxygen Devices in Use Now: None Exam: Appearance: sleepy, unable to answer to questions appropriately Head: atraumatic/normacephalic Ears/Nose/Mouth/Throat: Clear Oropharnyx, Mucous Membranes Moist, no blood seen. Respiratory: Symmetrical Chest Expansion and Respiratory Effort, unable to auscultate properly Cardiovascular: NL sounds; No Murmurs; No JVD, RRR Abdominal: NL Sounds; No Tenderness; No Distention, mildly enlarged liver and spleen, no spider nevi. Extremities: No Edema,no tenderness on joints and spine Neurological: drowsy, knows he is in hospital. Moving all 4 limbs spontaneously. Result Diagrams: 06/04/19 06:05 06/04/19 06:05 Additional Lab and Data: lactic acid: 1.7 Assess/Plan/Problems-Billing Assessment: Hubert Markham is a 58 years old gentleman with history of alcohol abuse, HTN, tobacco abuse, ARLET, history of esophagitis and hiatal hernia revealed in endoscopy in October 2018, presented with hematemesis, found possibly Helga Mcintosh tear under endoscopy. His hospital course complicated by aspiration pneumonia and alcohol withdrawal. - Patient Problems (1) Hematemesis Current Visit: Yes Status: Acute Priority: High Code(s): K92.0 - HEMATEMESIS SNOMED Code(s): 8260220 Comment: - resolved - endoscopy revealed a large hiatal hernia, and twisted esophagus with no obvious ulcer or bleeding seen, likely helga mcintosh tear; plan for further upper GI study to evaluate esophagus but unable to get it done due to drowsiness. - continue iv ppi - continue to trend hb, hb drop by 2g from yesterday, but likely yesterday sample was concentrated due to his ongoing hemetemesis - will recheck tomorrow (2) Aspiration pneumonia Current Visit: Yes Status: Acute Priority: High Code(s): J69.0 - PNEUMONITIS DUE TO INHALATION OF FOOD AND VOMIT SNOMED Code(s): 329232920 Comment: fever after multiple episodes of vomiting, cxr found right middle lobe opacity likely aspiration pneumonia iv zosyn for now for better anerobic coverage trace bld cs (3) Alcohol withdrawal Current Visit: No Status: Acute Priority: Medium Code(s): F10.239 - ALCOHOL DEPENDENCE WITH WITHDRAWAL, UNSPECIFIED SNOMED Code(s): 956632283 Comment: - alcohol level 200+ on admission, heavy drinker, last drinker 06/02 night - high CIWA score initially requiring extra doses of ativan, today - continue scheduled ativan for seizure prophylaxis and symptom triggered ativan dose, decrease scheduled ativan dose to Q12h today - seizure prevention - patient has no insight of his disease, and previously he refused alcohol rehab multiple times. (4) Alcohol abuse Current Visit: Yes Status: Acute Priority: Medium Code(s): F10.10 - ALCOHOL ABUSE, UNCOMPLICATED SNOMED Code(s): 50053976 Comment: - need to look into alcohol rehab program though patient declined in the past (5) Hypertension Current Visit: No Status: Acute Priority: Medium Code(s): I10 - ESSENTIAL (PRIMARY) HYPERTENSION SNOMED Code(s): 30635859 Comment: - history, he is not taking medication for quite some time - continue losartan - watch bp (6) DVT prophylaxis Current Visit: No Status: Acute Priority: Low Code(s): IEV4621 - SNOMED Code(s): 260963803 Comment: - SCDs only in the setting of GI bleed for now Status and Disposition: Inpatient Medicine. Attestation Documenting Resident: Emy Vuong Supervising Physician: Gordy Prater Attending/Supervising Physician Comment: Alcohol withdrawal complicated by aspiration pneumonia, now responding to Zosyn. Drowsy, will need less ativan. Upper GI bleed resolved. Not ready for discharge. Has been refusing alcohol rehab. Attestation: This service has been performed in part by a resident under the direction of a teaching physician.I, Gordy Prater, performed the service, or was physically present during the critical, or jackman portions of the service, furnished by the resident. I participated in the management of the patient.
[2019-06-04] MEDS: LORazepam INJ* 2 MG/ML 1 ML VIAL IV PUSH PRN (21:18)
[2019-06-05] MEDS: NS 0.9% 1000 ML** 1,000 ML IV SCH (01:13)
[2019-06-05] MEDS: ZOSYN 3.375 GM Q8H per EXTENDED INFUSION IVPB SCH ×4 (05:23→14:27)
--- NOTE | 2019-06-05 08:17 | PN ---
Subjective Date of Service: 06/05/19 Interval History: No acute events overnight. Admitted for GIB, EGD unrevealing but possibly with old M-W tear. Now on PPI, also Zosyn IV for suspected aspiration PNA. Received Ativan last night per [facility] protocol. On interview this morning, reports he still feels like he is withdrawing from etoh, specifically needing to use the bathroom frequently. Passing solid brown stool. Denies pain, fevers, chills, CP, SOB, abd pain. Objective Active Medications: Acetaminophen (Tylenol Tab*) 650 mg PO Q6H PRN PRN Reason: PAIN Ferrous Sulfate (Ferrous Sulfate Tab*) 325 mg PO DAILY [facility] Last Admin: 06/05/19 09:41 Dose: 325 mg Folic Acid (Folvite Tab*) 1 mg PO DAILY [facility] Last Admin: 06/05/19 09:41 Dose: 1 mg Piperacillin Sod/Tazobactam (Sod 3.375 gm/ Sodium Chloride) 100 mls @ 25 mls/ hr IVPB Q8H [facility] Last Admin: 06/05/19 14:27 Dose: 25 mls/hr Magnesium Sulfate (Magnesium Sulfate 2 Gm Iv*) 2 gm in 50 mls @ 50 mls/hr IVPB ONCE ONE Stop: 06/05/19 17:58 Lisinopril (Prinivil Tab*) 40 mg PO DAILY [facility] Last Admin: 06/05/19 09:42 Dose: 40 mg Lorazepam (Ativan Inj*) 0 mg IV PUSH Q2H PRN; Protocol PRN Reason: alcohol withdrawal Last Admin: 06/04/19 21:18 Dose: 1 mg Miscellaneous (Ativan Pyxis Smith) 1 ea N/A .ATIVAN IV SMITH PRN PRN Reason: PYXIS SMITH Multivitamins/Minerals (Theragran/Minerals Tab*) 1 tab PO DAILY [facility] Last Admin: 06/05/19 09:41 Dose: 1 tab Ondansetron HCl (Zofran Inj*) 4 mg IV Q6H PRN PRN Reason: NAUSEA Last Admin: 06/03/19 03:54 Dose: 4 mg Pantoprazole Sodium (Protonix Tab*) 40 mg PO BID [facility] Last Admin: 06/05/19 09:41 Dose: 40 mg Pharmacy Consult (Zosyn Per Pharmacy*) 1 note FOLLOW UP .ZOSYN PER PHARMACY [facility] Thiamine HCl (Vitamin B-1 Tab*) 100 mg PO DAILY [facility] Last Admin: 06/05/19 09:41 Dose: 100 mg Vital Signs - 8 hr 06/05/19 06/05/19 06/05/19 00:56 01:17 02:07 Temperature 97.7 F Pulse Rate 64 Respiratory 20 18 16 Rate Blood Pressure 127/69 (mmHg) O2 Sat by Pulse 97 Oximetry 06/05/19 06/05/19 06/05/19 02:23 03:00 04:54 Temperature 98.0 F 97.8 F Pulse Rate 54 49 Respiratory 16 18 14 Rate Blood Pressure 119/67 134/71 (mmHg) O2 Sat by Pulse 99 98 Oximetry 06/05/19 04:57 Temperature Pulse Rate Respiratory 18 Rate Blood Pressure (mmHg) O2 Sat by Pulse Oximetry Oxygen Devices in Use Now: None Appearance: frail man, appears older than stated age Eyes: No Scleral Icterus Ears/Nose/Mouth/Throat: Clear Oropharnyx, Mucous Membranes Moist Neck: NL Appearance and Movements; NL JVP, Trachea Midline Respiratory: Symmetrical Chest Expansion and Respiratory Effort, Clear to Auscultation Cardiovascular: NL Sounds; No Murmurs; No JVD, RRR Abdominal: NL Sounds; No Tenderness; No Distention Extremities: No Edema Skin: No Rash or Ulcers Neurological: - - has garbled speech but answers questions appropriately Result Diagrams: 06/05/19 08:18 06/05/19 08:18 Additional Lab and Data: lactic acid: 1.7 Microbiology and Other Data: Microbiology 06/03/19 10:47 Aerobic Blood Culture - Preliminary Blood Venous No Growth Day 1 Anaerobic Blood Culture - Preliminary No Growth Day 1 Assess/Plan/Problems-Billing Assessment: 58M with alcohol use disorder, HTN, tobacco use disorder, ARLET, history of esophagitis and hiatal hernia revealed in endoscopy in October 2018, who presents with hematemesis, found with possible old Helga Seals tear under endoscopy. His hospital course complicated by aspiration pneumonia and alcohol withdrawal. - Patient Problems (1) Debility Comment: Requires two-person assist to bathroom. Likely from long-term alcohol use and physical deconditioning. - pending PT eval (2) Aspiration pneumonia Comment: Fever after multiple episodes of vomiting, cxr found right middle lobe opacity. - on Zosyn (06/03 - 06/05); switch to Augmentin (06/06 - 06/09) (3) Alcohol withdrawal Comment: Alcohol level 216 on admission. Pt reports 1 shot vodka per day, but family reports more. - cont [place] protocol for symptom-triggered therapy - seizure prevention - patient has no insight of his disease, and previously he refused alcohol rehab multiple times. - cont thiamine/folate (4) Hematemesis Comment: Endoscopy revealed a large hiatal hernia, and twisted esophagus with no obvious ulcer or bleeding seen, likely Helga-Seals tear. - no further hematemesis - switch IV to PO PPI - trend Hgb daily, monitor for recurrance of symptoms - esophogram recommended by GI- pending for Friday (5) Hypertension Comment: - cont lisinopril 40 mg daily (6) Iron deficiency Comment: Possibly from slow GI bleed. - cont home iron PO - will need age-appropriate cancer screening as outpatient (7) DVT prophylaxis Comment: - SCDs only in the setting of GI bleed for now Status and Disposition: Inpatient Medicine.
[2019-06-05 08:50] LABS: Hematocrit 32 % (42-52); Hemoglobin 10.1 g/dL (14.0-18.0); Mean Corpuscular HGB Conc 32 g/dL (31-36); Mean Corpuscular Hemoglobin 24 pg (27-31); Mean Corpuscular Volume 75 fL (80-94); Platelet Count 216 10^3/uL (150-450); Red Blood Count 4.18 10^6 /uL (4.18-5.48); Red Cell Distribution Width 21 % (10-15); White Blood Count 6.1 10^3/uL (3.5-10.8)
[2019-06-05 09:07] LABS: BUN/Creatinine Ratio 6.9 (8-20); Calcium 8.2 mg/dL (8.6-10.3); EGFR African American 134.7 (>60); EGFR Non-African American 111.4 (>60); Magnesium 1.8 mg/dL (1.9-2.7); Potassium 3.3 mmol/L (3.5-5.0)
[2019-06-05] MEDS: ERGOCALCIFEROL 50 MCG PO SCH (09:36)
[2019-06-05] MEDS: Thiamine TAB* 100 MG TAB PO SCH (09:41)
[2019-06-05] MEDS: Pantoprazole TAB * 40 MG TAB PO SCH ×2 (09:41→20:19)
[2019-06-05] MEDS: Ferrous Sulfate TAB* 325 MG PO SCH (09:41)
[2019-06-05] MEDS: Folic Acid TAB* 1 MG PO SCH (09:41)
[2019-06-05] MEDS: Multivitamins/Minerals TAB PO SCH (09:41)
[2019-06-05] MEDS: Lisinopril TAB* 10 MG PO SCH (09:42)
[2019-06-05] MEDS: LORazepam INJ* 2 MG/ML 1 ML VIAL IV PUSH SCH (10:03)
[2019-06-05] MEDS ORDERED: Magnesium Sulfate 2 GM IV* 2 GM/50 ML BAG IVPB ONE (16:59)
[2019-06-05] MEDS ORDERED: Potassium Chlor TAB* 20 MEQ TAB.ER PO ONE (17:00)
[2019-06-05] MEDS: Amoxicillin/Clavulanate TAB* 875 MG PO SCH (20:18)
[2019-06-06 06:28] LABS: BUN/Creatinine Ratio 7.5 (8-20); Calcium 8.2 mg/dL (8.6-10.3); EGFR African American 146.4 (>60); Potassium 3.4 mmol/L (3.5-5.0)
[2019-06-06] MEDS: Pantoprazole TAB * 40 MG TAB PO SCH ×2 (09:16→21:42)
[2019-06-06] MEDS: Folic Acid TAB* 1 MG PO SCH (09:16)
[2019-06-06] MEDS: Multivitamins/Minerals TAB PO SCH (09:16)
[2019-06-06] MEDS: Thiamine TAB* 100 MG TAB PO SCH (09:16)
[2019-06-06] MEDS: Potassium Chlor TAB* 20 MEQ TAB.ER PO SCH ×2 (09:16→21:42)
[2019-06-06] MEDS: Ferrous Sulfate TAB* 325 MG PO SCH (09:16)
[2019-06-06] MEDS: Lisinopril TAB* 10 MG PO SCH (09:16)
[2019-06-06] MEDS: Amoxicillin/Clavulanate TAB* 875 MG PO SCH ×2 (09:16→21:42)
--- NOTE | 2019-06-06 10:49 | PN ---
Subjective Date of Service: 06/06/19 Interval History: Patient is alert today, sitting on the bed edge. Noted nurses noticed that he was peeing in garbage can last night. Also black stool was also noted. He kept questioning why he was in hospital this morning, and requested to go home RICHARD. After explaining to him about his safety concern and pending GI study, he is agreeable to stay. but still he refused alcohol rehab, No more cough Objective Active Medications: Acetaminophen (Tylenol Tab*) 650 mg PO Q6H PRN PRN Reason: PAIN Last Admin: 06/06/19 00:05 Dose: 650 mg Amoxicillin/Clavulanate Potassium (Augmentin Tab*) 875 mg PO BID [facility] Stop: 06/09/19 23:59 Last Admin: 06/06/19 09:16 Dose: 875 mg Ferrous Sulfate (Ferrous Sulfate Tab*) 325 mg PO DAILY [facility] Last Admin: 06/06/19 09:16 Dose: 325 mg Folic Acid (Folvite Tab*) 1 mg PO DAILY [facility] Last Admin: 06/06/19 09:16 Dose: 1 mg Lisinopril (Prinivil Tab*) 40 mg PO DAILY [facility] Last Admin: 06/06/19 09:16 Dose: 40 mg Lorazepam (Ativan Inj*) 0 mg IV PUSH Q2H PRN; Protocol PRN Reason: alcohol withdrawal Last Admin: 06/04/19 21:18 Dose: 1 mg Miscellaneous (Ativan Pyxis Jackman) 1 ea N/A .ATIVAN IV JACKMAN PRN PRN Reason: PYXIS JACKMAN Multivitamins/Minerals (Theragran/Minerals Tab*) 1 tab PO DAILY [facility] Last Admin: 06/06/19 09:16 Dose: 1 tab Ondansetron HCl (Zofran Inj*) 4 mg IV Q6H PRN PRN Reason: NAUSEA Last Admin: 06/03/19 03:54 Dose: 4 mg Pantoprazole Sodium (Protonix Tab*) 40 mg PO BID [facility] Last Admin: 06/06/19 09:16 Dose: 40 mg Potassium Chloride (Klor Con Er Tab*) 20 meq PO BID [facility] Stop: 06/08/19 08:59 Last Admin: 06/06/19 09:16 Dose: 20 meq Thiamine HCl (Vitamin B-1 Tab*) 100 mg PO DAILY [facility] Last Admin: 06/06/19 09:16 Dose: 100 mg Vital Signs - 8 hr 06/06/19 06/06/19 06/06/19 03:00 05:00 07:00 Temperature 97.4 F 97.9 F 98.5 F Pulse Rate 54 49 59 Respiratory 18 16 16 Rate Blood Pressure 133/78 122/66 134/87 (mmHg) O2 Sat by Pulse 98 95 98 Oximetry Oxygen Devices in Use Now: None Exam: Appearance: alert, confused looking though, move slowly Head: atraumatic/normacephalic Ears/Nose/Mouth/Throat: Clear Oropharnyx, Mucous Membranes Moist, no blood seen. Respiratory: Symmetrical Chest Expansion and Respiratory Effort, clear on auscultation Cardiovascular: NL sounds; No Murmurs; No JVD, RRR Abdominal: NL Sounds; No Tenderness; No Distention, mildly enlarged liver and spleen, no spider nevi. Extremities: No Edema,no tenderness on joints and spine Neurological: alert and oriented x4 Moving all 4 limbs spontaneously. Result Diagrams: 06/05/19 08:18 06/06/19 05:43 Additional Lab and Data: lactic acid: 1.7 Microbiology and Other Data: Microbiology 06/03/19 10:47 Aerobic Blood Culture - Preliminary Blood Venous No Growth Day 1 Anaerobic Blood Culture - Preliminary No Growth Day 1 Assess/Plan/Problems-Billing Assessment: 58M with alcohol use disorder, HTN, tobacco use disorder, ARLET, history of esophagitis and hiatal hernia revealed in endoscopy in October 2018, who presents with hematemesis, found with possible old Helga Seals tear under endoscopy. His hospital course complicated by aspiration pneumonia and alcohol withdrawal. - Patient Problems (1) Hematemesis Comment: Endoscopy revealed a large hiatal hernia, and twisted esophagus with no obvious ulcer or bleeding seen, likely Helga-Seals tear. - no further hematemesis - switch IV to PO PPI - trend Hgb daily, monitor for recurrance of symptoms - esophogram recommended by GI- pending for Friday (2) Aspiration pneumonia Comment: Fever after multiple episodes of vomiting, cxr found right middle lobe opacity. - on Zosyn (06/03 - 06/05); switch to Augmentin (06/06 - 06/09) (3) Alcohol withdrawal Comment: Alcohol level 216 on admission. Pt reports 1 shot vodka per day, but family reports more. - decrease WAM to every 4 hours, continue to watch, no extra doses of lorazepam needed yesterday - patient has no insight of his disease, and previously he refused alcohol rehab multiple times. - cont thiamine/folate (4) Alcohol abuse Current Visit: Yes Status: Acute Priority: Medium Code(s): F10.10 - ALCOHOL ABUSE, UNCOMPLICATED SNOMED Code(s): 67045757 Comment: Alcohol use disorder, now in withdrawal. - WAM protocol - SW for possible rehab (5) Hypertension Current Visit: No Status: Acute Priority: Medium Code(s): I10 - ESSENTIAL (PRIMARY) HYPERTENSION SNOMED Code(s): 57611056 Comment: - history, he is not taking medication for quite some time - continue losartan - watch bp (6) DVT prophylaxis Comment: - SCDs only in the setting of GI bleed for now Status and Disposition: Inpatient Medicine. Need physical assessment pass before discharge. Attestation Documenting Resident: Yevgeniy Supervising Physician: Maurizio Attending/Supervising Physician Comment: No longer requiring benzos for alcohol withdrawal. Pt does not have capacity to refuse placement after discharge. He is unable to state risks of going home, even after explaining our concerns. He has no insight into his use of alcohol, despite 3 admissions in the last year for alcohol-related illnesses. He states he is "well" and cannot explain why he is in the hospital and does not remember his chief complaint. He significantly under reports how much vodka he drinks each day. He states his sisters will take care of him, but his sister reports that she cannot care for him and their other sister is about to undergo open heart surgery. Attestation: This service has been performed in part by a resident under the direction of a teaching physician.Maurizio Brown, performed the service, or was physically present during the critical, or jackman portions of the service, furnished by the resident. I participated in the management of the patient.
[2019-06-07] MEDS: Amoxicillin/Clavulanate TAB* 875 MG PO SCH ×2 (10:38→22:26)
[2019-06-07] MEDS: Lisinopril TAB* 10 MG PO SCH (10:38)
[2019-06-07] MEDS: Thiamine TAB* 100 MG TAB PO SCH (10:38)
[2019-06-07] MEDS: Pantoprazole TAB * 40 MG TAB PO SCH ×2 (10:39→22:26)
[2019-06-07] MEDS: Ferrous Sulfate TAB* 325 MG PO SCH (10:39)
[2019-06-07] MEDS: Folic Acid TAB* 1 MG PO SCH (10:39)
[2019-06-07] MEDS: Potassium Chlor TAB* 20 MEQ TAB.ER PO SCH ×2 (10:39→22:26)
[2019-06-07] MEDS: Multivitamins/Minerals TAB PO SCH (10:39)
--- NOTE | 2019-06-07 14:28 | CONSULT ---
Consult Consult: Consult for Medical Decision Making Capacity S: Psychiatry is asked to evaluate capacity in this 58 y.o. single, white male with a history of chronic alcohol misuse and possible Helga-Seals tear, currently admitted to the Hospitalist service after presenting to the hospital with demar hematemisis. The patient has been evaluated by the PT/OT services and they feel he would benefit from [facility] placement due to his unsteady gait and disrupted cerebellar functions. I spoke with his attending, Dr. Steven, who similarly feels that subacute rehab is warranted, given the risks of falls from ataxia, possible head injury and resumption of drinking, which would complicate his esophageal condition, leading to further blood loss. On exam the patient is found in his room, covered in a blanket on his bed. He is cooperative and does well on cognitive testing, demonstrating intact orientation, attention and recall. Nonetheless, he demonstrates very little insight into his medical situation. He knows he was coughing up blood and this is why he came to the hospital. He is unable, however, to identify alcohol as a causative agent in this problem and insists that he hasn't been drinking much recently "because I can't afford it." He tells me that he is OK going to rehab as recommended but "I don't want to be there more than a few days." When asked about the risks of going home he cannot name any despite being given multiple opportunities. O: middle-aged, balding, bespectacled white male, dressed in a patient gown with limited grooming, appears older than stated age; cooperative; anxious mood with a corresponding anxious affect; denies SI or HI; insight and judgment poor given lack of self-care; awake and alert; oriented to place time and situation A/P: Capacity: for what it's worth, the patient is accepting SNF placement at this time, although he cannot demonstrate why it would be in his interest. In my judgment, he lacks the capacity to make an informed decision about SNF placement based on his inability to demonstrate a reasonable understanding of the risk/benefit considerations of this intervention. Capacity is subject to change in these situations and psychiatry can be re-consulted in the event of any significant changes in his presentation/situation. I have informed the patient and [address] [place] [address] staff of my findings. Thank you for the consult
--- NOTE | 2019-06-07 17:06 | PN ---
Subjective Date of Service: 06/07/19 Interval History: Patient was noted to be impulsive overnight by staffs. This morning, he was calm with the accompany of her sister. No more scoring in WAM for the past 48 hours. Appreciate psychiatrist claritza, patient doesn't have capacity to decide placement at this point of time. Objective Active Medications: Acetaminophen (Tylenol Tab*) 650 mg PO Q6H PRN PRN Reason: PAIN Last Admin: 06/06/19 00:05 Dose: 650 mg Amoxicillin/Clavulanate Potassium (Augmentin Tab*) 875 mg PO BID [facility] Stop: 06/09/19 23:59 Last Admin: 06/07/19 10:38 Dose: 875 mg Ferrous Sulfate (Ferrous Sulfate Tab*) 325 mg PO DAILY [facility] Last Admin: 06/07/19 10:39 Dose: 325 mg Folic Acid (Folvite Tab*) 1 mg PO DAILY [facility] Last Admin: 06/07/19 10:39 Dose: 1 mg Lisinopril (Prinivil Tab*) 40 mg PO DAILY [facility] Last Admin: 06/07/19 10:38 Dose: 40 mg Multivitamins/Minerals (Theragran/Minerals Tab*) 1 tab PO DAILY [facility] Last Admin: 06/07/19 10:39 Dose: 1 tab Ondansetron HCl (Zofran Inj*) 4 mg IV Q6H PRN PRN Reason: NAUSEA Last Admin: 06/03/19 03:54 Dose: 4 mg Pantoprazole Sodium (Protonix Tab*) 40 mg PO BID [facility] Last Admin: 06/07/19 10:39 Dose: 40 mg Potassium Chloride (Klor Con Er Tab*) 20 meq PO BID [facility] Stop: 06/08/19 08:59 Last Admin: 06/07/19 10:39 Dose: 20 meq Thiamine HCl (Vitamin B-1 Tab*) 100 mg PO DAILY [facility] Last Admin: 06/07/19 10:38 Dose: 100 mg Vital Signs - 8 hr 06/07/19 06/07/19 06/07/19 10:38 11:56 15:49 Temperature 97.9 F 98.2 F 98.9 F Pulse Rate 60 57 63 Respiratory 16 20 19 Rate Blood Pressure 128/88 133/74 131/75 (mmHg) O2 Sat by Pulse 99 98 100 Oximetry Oxygen Devices in Use Now: None Exam: Appearance: more calm with the accompany of his sister, sitting at the bed edge , unsteady when he moves Head: atraumatic/normacephalic Ears/Nose/Mouth/Throat: Clear Oropharnyx, Mucous Membranes Moist, no blood seen. Respiratory: Symmetrical Chest Expansion and Respiratory Effort, clear on auscultation Cardiovascular: NL sounds; No Murmurs; No JVD, RRR Abdominal: NL Sounds; No Tenderness; No Distention, mildly enlarged liver and spleen Extremities: No Edema,no tenderness on joints and spine Neurological: alert and oriented x3, unable to tell date correctly Result Diagrams: 06/05/19 08:18 06/06/19 05:43 Additional Lab and Data: lactic acid: 1.7 Microbiology and Other Data: Microbiology 06/03/19 10:47 Aerobic Blood Culture - Preliminary Blood Venous No Growth Day 1 Anaerobic Blood Culture - Preliminary No Growth Day 1 Assess/Plan/Problems-Billing Assessment: 58M with alcohol use disorder, HTN, tobacco use disorder, ARLET, history of esophagitis and hiatal hernia revealed in endoscopy in October 2018, who presents with hematemesis, found with possible old Helga Seals tear under endoscopy. His hospital course complicated by aspiration pneumonia and alcohol withdrawal. - Patient Problems (1) Hematemesis Comment: Endoscopy revealed a large hiatal hernia, and twisted esophagus with no obvious ulcer or bleeding seen, likely Helga-Seals tear. Barium swallow today, non specific esophageal peristalisis and large hiatal hernia noted. - no further hematemesis - on PO PPI, Hb stable - plan to get patient into [facility] for alcohol cessation (2) Aspiration pneumonia Comment: Fever after multiple episodes of vomiting, cxr found right middle lobe opacity. - on Zosyn (06/03 - 06/05); switch to Augmentin (06/06 - 06/09) (3) Alcohol withdrawal Comment: Alcohol level 216 on admission. Pt reports 1 shot vodka per day, but family reports more. - off WAM toay - patient has no insight of his disease, and previously he refused alcohol rehab multiple times. Apprecitate psy input, no mental capacity in deciding [facility] now. - cont thiamine/folate (4) Alcohol abuse Current Visit: Yes Status: Acute Priority: Medium Code(s): F10.10 - ALCOHOL ABUSE, UNCOMPLICATED SNOMED Code(s): 44533975 Comment: Alcohol use disorder, no more withdrawal sx plan for [facility] (5) Hypertension Current Visit: No Status: Acute Priority: Medium Code(s): I10 - ESSENTIAL (PRIMARY) HYPERTENSION SNOMED Code(s): 93933917 Comment: - history, he is not taking medication for quite some time - continue losartan - watch bp (6) DVT prophylaxis Comment: - SCDs only in the setting of GI bleed for now Status and Disposition: Inpatient Medicine. waiting for [facility] placement. Attestation Documenting Resident: Emy Vuong Supervising Physician: Shirlene Steven Attending/Supervising Physician Comment: Alcohol withdrawal and hematemesis have resolved. Patient is stable for discharge. Pursuing STR placement. Pt intermittently amenable but does not have capacity to refuse. Attestation: This service has been performed in part by a resident under the direction of a teaching physician.I, Shirlene Steven, performed the service, or was physically present during the critical, or carter portions of the service, furnished by the resident. I participated in the management of the patient.
[2019-06-08 07:59] LABS: EGFR African American 105.5 (>60); EGFR Non-African American 87.2 (>60); Potassium 4.3 mmol/L (3.5-5.0)
[2019-06-08] MEDS: Multivitamins/Minerals TAB PO SCH (10:24)
[2019-06-08] MEDS: Ferrous Sulfate TAB* 325 MG PO SCH (10:24)
[2019-06-08] MEDS: Pantoprazole TAB * 40 MG TAB PO SCH ×2 (10:24→21:20)
[2019-06-08] MEDS: Lisinopril TAB* 10 MG PO SCH (10:24)
[2019-06-08] MEDS: Thiamine TAB* 100 MG TAB PO SCH (10:24)
[2019-06-08] MEDS: Amoxicillin/Clavulanate TAB* 875 MG PO SCH ×2 (10:24→21:21)
[2019-06-08] MEDS: Folic Acid TAB* 1 MG PO SCH (10:24)
--- NOTE | 2019-06-08 15:27 | PN ---
Subjective Date of Service: 06/08/19 Interval History: Patient is more cooperative today, stated that he would like to go to physical therapy after discharge. He has no complains. Objective Active Medications: Acetaminophen (Tylenol Tab*) 650 mg PO Q6H PRN PRN Reason: PAIN Last Admin: 06/06/19 00:05 Dose: 650 mg Amoxicillin/Clavulanate Potassium (Augmentin Tab*) 875 mg PO BID [facility] Stop: 06/09/19 23:59 Last Admin: 06/08/19 10:24 Dose: 875 mg Ferrous Sulfate (Ferrous Sulfate Tab*) 325 mg PO DAILY [facility] Last Admin: 06/08/19 10:24 Dose: 325 mg Folic Acid (Folvite Tab*) 1 mg PO DAILY [facility] Last Admin: 06/08/19 10:24 Dose: 1 mg Lisinopril (Prinivil Tab*) 40 mg PO DAILY [facility] Last Admin: 06/08/19 10:24 Dose: 40 mg Multivitamins/Minerals (Theragran/Minerals Tab*) 1 tab PO DAILY [facility] Last Admin: 06/08/19 10:24 Dose: 1 tab Ondansetron HCl (Zofran Inj*) 4 mg IV Q6H PRN PRN Reason: NAUSEA Last Admin: 06/03/19 03:54 Dose: 4 mg Pantoprazole Sodium (Protonix Tab*) 40 mg PO BID [facility] Last Admin: 06/08/19 10:24 Dose: 40 mg Thiamine HCl (Vitamin B-1 Tab*) 100 mg PO DAILY [facility] Last Admin: 06/08/19 10:24 Dose: 100 mg Vital Signs - 8 hr 06/08/19 08:00 Temperature 97.5 F Pulse Rate 64 Respiratory 16 Rate Blood Pressure 124/80 (mmHg) O2 Sat by Pulse 99 Oximetry Oxygen Devices in Use Now: None Exam: Appearance: calm, sitting up. Head: atraumatic/normacephalic Respiratory: Symmetrical Chest Expansion and Respiratory Effort, clear on auscultation Cardiovascular: NL sounds; No Murmurs; No JVD, RRR Abdominal: NL Sounds; No Tenderness; No Distention, mildly enlarged liver and spleen Extremities: No Edema,no tenderness on joints and spine Neurological: alert and oriented x 2(unable to tell date, day) Result Diagrams: 06/05/19 08:18 06/08/19 06:58 Additional Lab and Data: lactic acid: 1.7 Microbiology and Other Data: Microbiology 06/03/19 10:47 Aerobic Blood Culture - Preliminary Blood Venous No Growth Day 1 Anaerobic Blood Culture - Preliminary No Growth Day 1 Assess/Plan/Problems-Billing Assessment: 58M with alcohol use disorder, HTN, tobacco use disorder, ARLET, history of esophagitis and hiatal hernia revealed in endoscopy in October 2018, who presents with hematemesis, found with possible old Helga Seals tear and large hiatal hernia under endoscopy. His hospital course complicated by aspiration pneumonia and alcohol withdrawal. - Patient Problems (1) Hematemesis Comment: Endoscopy revealed a large hiatal hernia, and twisted esophagus with no obvious ulcer or bleeding seen, likely Helga-Seals tear. Barium swallow today, non specific esophageal peristalisis and large hiatal hernia noted. - no further hematemesis - on PO PPI, Hb stable - plan to get patient into [facility] for alcohol cessation (2) Aspiration pneumonia Comment: Fever after multiple episodes of vomiting, cxr found right middle lobe opacity. - on Zosyn (06/03 - 06/05); switch to Augmentin (06/06 - 06/09) (3) Alcohol withdrawal Comment: Alcohol level 216 on admission. Pt reports 1 shot vodka per day, but family reports more. Patient had withdrawal symptoms this admission, resolved now - cont thiamine/folate - patient has no insight of his disease, and previously he refused alcohol rehab multiple times. Apprecitate psy input, no mental capacity in deciding [facility].will get [facility] for him. (4) Alcohol abuse Current Visit: Yes Status: Acute Priority: Medium Code(s): F10.10 - ALCOHOL ABUSE, UNCOMPLICATED SNOMED Code(s): 80115982 Comment: Alcohol use disorder, no more withdrawal sx plan for [facility] (5) Hypertension Current Visit: No Status: Acute Priority: Medium Code(s): I10 - ESSENTIAL (PRIMARY) HYPERTENSION SNOMED Code(s): 68830210 Comment: - history, he is not taking medication for quite some time - continue losartan - watch bp (6) DVT prophylaxis Comment: - SCDs only in the setting of GI bleed for now Status and Disposition: Inpatient Medicine. waiting for [facility] placement. Attestation Documenting Resident: Emy Vuong Supervising Physician: Shirlene Steven Attending/Supervising Physician Comment: Pending placement to rehab. Pt would not have capacity to refuse, but he is accepting now anyway. Attestation: This service has been performed in part by a resident under the direction of a teaching physician.I, Shirlene Steven, performed the service, or was physically present during the critical, or carter portions of the service, furnished by the resident. I participated in the management of the patient.
[2019-06-09 08:08] VITALS: BP 141/83
[2019-06-09] MEDS ORDERED: Amoxicillin/Clavulan* ORALSYR 80 MG/ML (400 MG/5 ML) PO SCH (09:00)
[2019-06-09] MEDS ORDERED: Multivitamins ADULT w/MIN LIQ* 15 ML UDC PO SCH (09:00)
[2019-06-09] MEDS ORDERED: Ferrous Sulfate LIQ* 300 MG/5 ML UDC PO SCH (09:00)
[2019-06-09] MEDS: Folic Acid TAB* 1 MG PO SCH (09:36)
[2019-06-09] MEDS: Lisinopril TAB* 10 MG PO SCH (09:40)
[2019-06-09] MEDS: Thiamine TAB* 100 MG TAB PO SCH (09:43)
[2019-06-09] MEDS ORDERED: Lansoprazole SUSP* ORALSYR 3 MG/ML PO SCH (10:00)
--- NOTE | 2019-06-09 11:39 | DS ---
Resident Discharge Summary Discharge Summary: Date of Admission: 06/02/19 Date of Discharge: 06/09/19 Admitting MD: Inez Levy DO Attending MD: Shirlene Steven MD Primary Care Physician: Sherrie Luther CC: Sherrie Luther Home Medications Medication Instructions Recorded Confirmed Type Ferrous Sulfate 325 mg PO DAILY 07/21/18 06/03/19 History Lisinopril TAB* [Prinivil TAB 10 40 mg PO DAILY tab 07/29/18 06/03/19 Rx MG*] Multivitamins/Minerals TAB* 1 tab PO DAILY tab 07/29/18 06/03/19 Rx [Theragran/minerals TAB*] Pantoprazole TAB * [Protonix TAB*] 40 mg PO BID tab 11/04/18 06/03/19 Rx Tamsulosin CAP* [Flomax CAP*] 0.4 mg PO BEDTIME cap 11/04/18 06/03/19 Rx Folic Acid TAB* [Folvite TAB*] 1 mg PO DAILY tab 06/09/19 Rx Thiamine TAB* [Vitamin B-1 TAB 100 100 mg PO DAILY tab 06/09/19 Rx MG*] Disposition: [facility] for subacute rehabilitaiton Condition: Fair Primary Diagnosis: 1. Helga Seals Tear 2. Alcohol withdrawal Secondary Diagnosis: 1. Alcohol abuse 2. Hypertension 3. Tobacco abuse 4. Iron deficiency anemia 5. History of left hip arthroplasty Diagnostic Imaging: OGD: 1. Complete upper endoscopy to the distal duodenum. 2. Very large hiatal hernia (10 cm) versus paraesophageal hernia. 3. Very tortuous esophagus. 4. No fresh or old blood. Small erosion seen in the hiatal hernia sac, unlikely to be the source of the hematemesis. May represent Helga-Seals tear. Barium meal #. Large hiatal hernia. #. Nonspecific abnormal esophageal peristalsis with ineffective primary peristaltic wave, delayed emptying of liquid barium from the esophagus, and significant tertiary contractions in the mid to distal segment. #. No gross abnormality of the esophageal mucosal pattern. No focal esophageal lesion evident. Pertinent Laboratory Results: CBC: WBC 9.2, Hb 12.5, plt 350 Liver function normal BMP: Na 143, K 3.4, creatinine 1.06, bicarb 28 Hospital Course: Hubert Markham is a 58 yo male with history of alcohol abuse, hypertension, iron def anemia, presented to hospital for hematemesis with no significant Hb drop. Please refer to H&P dated 06/02/[address] Levy for more information. He also came in with alcohol concentration 216 in blood. He had an upper endoscopy which showed no active or old bleeding, a large hiatal hernia with some erosion related to hernia. It is likely his hematemesis is due to Helga Seals tear and his alcohol abuse. He did experience alcohol withdrawal in hospital D2 admission, symptoms resolved with symptom triggered treatment, no seizure was noticed. He was found to have unsteady gait during physical therapy assessment, and rehabilitation was recommended. Decision made with family and patient himself to send him for subacute rehabilitation. He is not interested in alcohol rehab but would like to do subacute rehab after dicharged. On the day of discharge, patient is comfortable, no hematemesis, no IA bleed/ melena, sober and interactive,11 point examination normal. He will be discharged to [facility] for MARIA ISABEL. He was instructed to follow up with his primary care for his GI bleeding, alcohol cessation. Follow Up Instructions: Follow up with primary care within 1 week continue rehabilitation in [facility] Stop alcohol. In case of an emergency or after clinic hours, please go to your nearest Emergency Department. You may also call the [facility] band ripsaw operator at . Attestation Documenting Resident: Yevgeniy Supervising Physician: Maurizio Attestation: This service has been performed in part by a resident under the direction of a teaching physician.IMaurizio, performed the service, or was physically present during the critical, or carter portions of the service, furnished by the resident. I participated in the management of the patient.
[2019-06-09] MEDS: Pantoprazole TAB * 40 MG TAB PO SCH (12:01)
== END 2019-06-09 16:50 | DRG 368 ==
LOC: ED 22:23 → MED 06-02 04:03
PROVIDERS: ADMIT Hospitalist; ATTEND Internal Medicine
PROC: 0DJ08ZZ Inspection of Upper Intestinal Tract, Via Natural or Artificial Opening Endoscopic (ICD-10-PCS; principal; 2019-06-02)
DX: K22.6 Gastro-esophageal laceration-hemorrhage syndrome (principal); J69.0 Pneumonitis due to inhalation of food and vomit; F10.239 Alcohol dependence with withdrawal, unspecified; I10 Essential (primary) hypertension; M19.90 Unspecified osteoarthritis, unspecified site; F41.9 Anxiety disorder, unspecified; F32.9 Major depressive disorder, single episode, unspecified; F17.210 Nicotine dependence, cigarettes, uncomplicated; Z96.642 Presence of left artificial hip joint; K44.9 Diaphragmatic hernia without obstruction or gangrene; Y90.7 Blood alcohol level of 200-239 mg/100 ml; K74.60 Unspecified cirrhosis of liver; K22.70 Barrett's esophagus without dysplasia; K21.9 Gastro-esophageal reflux disease without esophagitis; D50.0 Iron deficiency anemia secondary to blood loss (chronic); Z87.11 Personal history of peptic ulcer disease; Z79.899 Other long term (current) drug therapy
CPT/HCPCS: 36415; 71045; 74220; 80048; 80053; 80320; 81003; 82803; 83605; 83690; 83735; 85025; 85027; 85610; 86140; 86850; 86900; 86901; 87040; 93005; 99156; 99157; 99284; A9270-GY; G0480; J0456; J0696; J0780; J2060; J2250; J2354; J2405; J2543; J3010; J3411; J3475; J3480

== ENCOUNTER 2019-09-02 18:02 | Inpatient (IN) | payer OTHER ==
[2019-09-02] MEDS ORDERED: Ondansetron 4 mg VIAL 2 MG/ML 2 ml VIAL IV ONE (18:22)
[2019-09-02] MEDS ORDERED: NS 0.9% 1000 ml BAG 1,000 ML IV ONE (18:22)
[2019-09-02] MEDS ORDERED: Pantoprazole VIAL 40 MG VIAL IV ONE (18:22)
[2019-09-02 18:43] LABS: ABS Lymphocytes 1.4 10^3/ul (1.0-4.8); ABS Monocytes 0.7 10^3/ul (0-0.8); Eosinophil % 0.4 %; Hematocrit 44 % (42-52); Hemoglobin 14.8 g/dL (14.0-18.0); Lymphocyte % 21.2 %; Mean Corpuscular HGB Conc 34 g/dL (31-36); Mean Corpuscular Hemoglobin 29 pg (27-31); Mean Corpuscular Volume 85 fL (80-94); Mean Platelet Volume 7.7 fL (7.4-10.4); Nucleated Red Blood Cells % 0.1; Platelet Count 273 10^3/uL (150-450); Red Blood Count 5.17 10^6 /uL (4.18-5.48); Red Cell Distribution Width 22 % (10-15); White Blood Count 6.4 10^3/uL (3.5-10.8)
[2019-09-02 18:50] LABS: Urine Appearance Cloudy; Urine Bilirubin Negative (Negative); Urine Blood 3+ (Negative); Urine Color Amber; Urine Glucose Negative (Negative); Urine Ketones Trace (Negative); Urine Nitrite Negative (Negative); Urine Protein 2+(100 mg/dL) (Negative); Urine Specific Gravity 1.025 (1.010-1.030); Urine Urobilinogen Positive (Negative)
[2019-09-02 18:55] LABS: Activated Partial Thrombo Time 31.8 seconds (26.0-38.0); INR 0.91 (0.82-1.09)
[2019-09-02 18:57] LABS: Urine Bacteria Absent (Absent); Urine Red Blood Cell 3+(>10/hpf) (Absent); Urine White Blood Cell 1+(6-10/hpf) (Absent)
[2019-09-02 19:06] LABS: ALT 10 U/L (7-52); AST 16 U/L (13-39); Albumin 4.2 g/dL (3.2-5.2); Albumin/Globulin Ratio 1.4 (1-3); Alkaline Phosphatase 60 U/L (34-104); Amylase 51 U/L (29-103); Anion Gap 11 mmol/L (2-11); BUN/Creatinine Ratio 12.8 (8-20); Blood Urea Nitrogen 11 mg/dL (6-24); C Reactive Protein < 1.00 mg/L (<8.01); CO2 Carbon Dioxide 34 mmol/L (22-32); Calcium 9.5 mg/dL (8.6-10.3); Chloride 99 mmol/L (101-111); Creatine Kinase 74 U/L (10-223); EGFR African American 109.8 (>60); EGFR Non-African American 90.7 (>60); Globulin 2.9 g/dL (2-4); Glucose 135 mg/dL (70-100); Magnesium 2.1 mg/dL (1.9-2.7); Potassium 3.3 mmol/L (3.5-5.0); Sodium 144 mmol/L (135-145); Total Protein 7.1 g/dL (6.4-8.9)
[2019-09-02] MEDS ORDERED: Metoclopramide 5 MG/ML VIAL (10 mg) IV SLOW PU ONE (20:12)
[2019-09-02 20:22] LABS: Alcohol, S 106 mg/dL (<10)
[2019-09-02] MEDS ORDERED: Ondansetron 4 mg VIAL 2 MG/ML 2 ml VIAL IV PRN (20:48)
[2019-09-02] MEDS: KCL 10 MEQ/50 ML IVPREMIX 10 MEQ/50 ML BAG IV SCH ×2 (20:54→22:41)
[2019-09-02] MEDS ORDERED: Thiamine 100 MG/ML 2 ml VIAL (200 mg) IM ONE (20:58)
[2019-09-02] MEDS ORDERED: LORazepam 2 mg VIAL 1 ml IV SCH (21:00)
[2019-09-02] MEDS ORDERED: LORazepam 2 mg VIAL 1 ml IV PUSH ONE (21:00)
[2019-09-02] MEDS ORDERED: LORazepam 1 mg TAB (*) PO SCH (21:00)
[2019-09-02] MEDS ORDERED: Lorazepam PYXIS KEY PRN (21:05)
[2019-09-02] MEDS ORDERED: Lorazepam PYXIS KEY ONE (21:09)
[2019-09-02] MEDS: Pantoprazole 80 mg in NS BAG 80 MG/250 ML BAG IV SCH (22:41)
[2019-09-02] MEDS: NS 0.9% 1000 ml BAG 1,000 ML IV SCH (22:42)
[2019-09-03] MEDS ORDERED: Midazolam 10 mg/10 ml VIAL 1 mg/ml 10 ml VIAL (10 mg) ONE (15:01)
[2019-09-03] MEDS ORDERED: fentaNYL 100 mcg/2 ml 50 MCG/ML VIAL ONE (15:01)
[2019-09-03] MEDS: Multivitamins/Minerals TAB PO SCH (20:28)
[2019-09-03] MEDS: Pantoprazole 80 mg in NS BAG 80 MG/250 ML BAG IV SCH ×2 (20:28→23:33)
[2019-09-03] MEDS: NS 0.9% 1000 ml BAG 1,000 ML IV SCH (20:30)
[2019-09-03 22:33] LABS: Hematocrit 35 % (42-52); Hemoglobin 11.7 g/dL (14.0-18.0)
[2019-09-04 01:36] LABS: ABS Basophils 0.1 10^3/ul (0-0.2); ABS Eosinophils 0.1 10^3/ul (0-0.6); ABS Lymphocytes 1.6 10^3/ul (1.0-4.8); ABS Monocytes 0.8 10^3/ul (0-0.8); Hematocrit 36 % (42-52); Hemoglobin 12.1 g/dL (14.0-18.0); Lymphocyte % 22.6 %; Mean Corpuscular HGB Conc 34 g/dL (31-36); Mean Corpuscular Hemoglobin 29 pg (27-31); Mean Corpuscular Volume 85 fL (80-94); Mean Platelet Volume 7.9 fL (7.4-10.4); Platelet Count 217 10^3/uL (150-450); Red Blood Count 4.23 10^6 /uL (4.18-5.48); Red Cell Distribution Width 22 % (10-15)
[2019-09-04 01:39] LABS: Potassium 3.7 mmol/L (3.5-5.0)
[2019-09-04 01:40] LABS: BUN/Creatinine Ratio 20.8 (8-20); Calcium 8.4 mg/dL (8.6-10.3); EGFR African American 124.7 (>60); EGFR Non-African American 103.1 (>60)
[2019-09-04 02:55] LABS: Hematocrit 39 % (42-52); Hemoglobin 12.8 g/dL (14.0-18.0)
[2019-09-04 03:02] LABS: Hematocrit 36 % (42-52); Hemoglobin 12.1 g/dL (14.0-18.0)
[2019-09-04] MEDS: NS 0.9% 1000 ml BAG 1,000 ML IV SCH (05:46)
[2019-09-04 06:23] LABS: ABS Basophils 0.1 10^3/ul (0-0.2); ABS Eosinophils 0.2 10^3/ul (0-0.6); ABS Lymphocytes 1.4 10^3/ul (1.0-4.8); ABS Monocytes 0.6 10^3/ul (0-0.8); Eosinophil % 4.1 %; Hematocrit 36 % (42-52); Hemoglobin 11.8 g/dL (14.0-18.0); Lymphocyte % 27.2 %; Mean Corpuscular HGB Conc 33 g/dL (31-36); Mean Corpuscular Hemoglobin 28 pg (27-31); Mean Corpuscular Volume 86 fL (80-94); Mean Platelet Volume 7.5 fL (7.4-10.4); Nucleated Red Blood Cells % 0.1; Platelet Count 204 10^3/uL (150-450); Red Blood Count 4.17 10^6 /uL (4.18-5.48); Red Cell Distribution Width 21 % (10-15); White Blood Count 5.1 10^3/uL (3.5-10.8)
[2019-09-04 06:42] LABS: Calcium 8.3 mg/dL (8.6-10.3); EGFR African American 166.3 (>60); EGFR Non-African American 137.4 (>60); Potassium 3.1 mmol/L (3.5-5.0)
[2019-09-04] MEDS ORDERED: Potassium Chlor 20 meq TAB.ER PO ONE (07:10)
[2019-09-04] MEDS: Pantoprazole 80 mg in NS BAG 80 MG/250 ML BAG IV SCH (07:19)
[2019-09-04] MEDS: Multivitamins/Minerals TAB PO SCH (07:52)
[2019-09-04 16:19] VITALS: BP 136/81
== END 2019-09-04 18:00 | disposition home health service (06) | DRG 253 ==
LOC: ED 18:02 → MED 20:48
PROVIDERS: ADMIT Nurse Practitioner Family; ATTEND Internal Medicine

== ENCOUNTER 2020-03-26 14:49 | Inpatient (IN) ==
[2020-03-26] MEDS ORDERED: NS 0.9% 1000 ml BAG 1,000 ML IV ONE ×2 (15:08→17:03)
[2020-03-26 15:18] LABS: ABS Lymphocytes 1.4 10^3/ul (1.0-4.8); ABS Monocytes 0.7 10^3/ul (0-0.8); ABS Neutrophils 5.8 10^3/ul (1.5-7.7); Eosinophil % 0.4 %; Hematocrit 43 % (42-52); Hemoglobin 14.9 g/dL (14.0-18.0); Lymphocyte % 17.2 %; Mean Corpuscular HGB Conc 35 g/dL (31-36); Mean Corpuscular Hemoglobin 34 pg (27-31); Mean Corpuscular Volume 96 fL (80-94); Mean Platelet Volume 7.9 fL (7.4-10.4); Platelet Count 260 10^3/uL (150-450); Red Blood Count 4.43 10^6 /uL (4.18-5.48); Red Cell Distribution Width 17 % (10-15)
[2020-03-26 15:38] LABS: Albumin 3.9 g/dL (3.2-5.2); Albumin/Globulin Ratio 1.5 (1-3); BUN/Creatinine Ratio 11.7 (8-20); Calcium 9.2 mg/dL (8.6-10.3); EGFR African American 81.5 (>60); EGFR Non-African American 67.3 (>60); Globulin 2.6 g/dL (2-4); Magnesium 1.3 mg/dL (1.9-2.7); Potassium 4.5 mmol/L (3.5-5.0); Total Bilirubin 1.3 mg/dL (0.2-1.0); Total Protein 6.5 g/dL (6.4-8.9)
[2020-03-26 15:59] LABS: TSH Ultra Thyroid Stim Horm 1.6 mcIU/mL (0.34-5.60)
[2020-03-26] MEDS ORDERED: Magnesium Sulfate 2 gm BAG 2 GM/50 ML BAG IVPB ONE (16:03)
[2020-03-26 17:04] LABS: INR 0.83 (0.82-1.09)
[2020-03-26] MEDS ORDERED: Senna TAB 8.6 mg TAB PO PRN (17:28)
[2020-03-26] MEDS ORDERED: Ondansetron 4 mg VIAL 2 MG/ML 2 ml VIAL IV PRN (17:28)
[2020-03-26] MEDS ORDERED: Magnesium Hydroxide LIQ 30 ML UDC PO PRN (17:28)
[2020-03-26] MEDS ORDERED: Thiamine 100 MG/ML 2 ml VIAL (200 mg) IM ONE ×2 (17:31→20:30)
[2020-03-26 19:37] LABS: Urine Appearance Clear; Urine Color Yellow; Urine Ketones Negative (Negative); Urine Urobilinogen Negative (Negative)
[2020-03-26 19:38] LABS: Urine Bilirubin Negative (Negative); Urine Blood Negative (Negative); Urine Glucose Negative (Negative); Urine Nitrite Negative (Negative); Urine Protein Negative (Negative)
[2020-03-26] MEDS ORDERED: cefTRIAXone 1 gm/50 mL NS BAG 1 GM/50 ML BAG IVPB SCH (20:00)
[2020-03-26 20:38] LABS: Urine Benzodiazepine Screen None Detected (None Detect); Urine Cannabinoids Screen None Detected (None Detect); Urine Opiates Screen None Detected (None Detect)
[2020-03-26] MEDS: Enoxaparin 40 MG/0.4 ML SYR SUBCUT SCH (21:26)
[2020-03-26] MEDS: NS 0.9% 1000 ml BAG 1,000 ML IV SCH (21:26)
[2020-03-27] MEDS: NS 0.9% 1000 ml BAG 1,000 ML IV SCH (05:28)
[2020-03-27 05:36] LABS: ABS Eosinophils 0.1 10^3/ul (0-0.6); ABS Lymphocytes 1.5 10^3/ul (1.0-4.8); ABS Monocytes 0.7 10^3/ul (0-0.8); ABS Neutrophils 4.2 10^3/ul (1.5-7.7); Eosinophil % 1.1 %; Hematocrit 35 % (42-52); Hemoglobin 12.1 g/dL (14.0-18.0); Lymphocyte % 23.5 %; Mean Corpuscular HGB Conc 35 g/dL (31-36); Mean Corpuscular Hemoglobin 33 pg (27-31); Mean Corpuscular Volume 96 fL (80-94); Mean Platelet Volume 8.1 fL (7.4-10.4); Nucleated Red Blood Cells % 0.1; Platelet Count 197 10^3/uL (150-450); Red Blood Count 3.62 10^6 /uL (4.18-5.48); Red Cell Distribution Width 17 % (10-15); White Blood Count 6.6 10^3/uL (3.5-10.8)
[2020-03-27 05:52] LABS: INR 0.96 (0.82-1.09)
[2020-03-27 05:53] LABS: Albumin 2.9 g/dL (3.2-5.2); Albumin/Globulin Ratio 1.4 (1-3); BUN/Creatinine Ratio 13.3 (8-20); Calcium 7.7 mg/dL (8.6-10.3); EGFR African American 128.1 (>60); EGFR Non-African American 105.9 (>60); Globulin 2.1 g/dL (2-4); Magnesium 1.8 mg/dL (1.9-2.7); Potassium 4.1 mmol/L (3.5-5.0); Total Bilirubin 1.2 mg/dL (0.2-1.0)
[2020-03-27] MEDS: Multivitamins/Minerals TAB PO SCH (09:56)
[2020-03-27] MEDS: Potassium Chlor 20 meq TAB.ER PO SCH (09:58)
[2020-03-27] MEDS ORDERED: Piperacillin/Tazobac ADVAN 3.375 GM in NS 0.9% 100 ml BAG 100 ML IV ONE (17:02)
[2020-03-27] MEDS: Enoxaparin 40 MG/0.4 ML SYR SUBCUT SCH (17:25)
[2020-03-27] MEDS ORDERED: Iodixanol (CONTRAST) 320 MG/ML 100 ML SDV IV ONE (17:25)
[2020-03-27 17:35] LABS: C Reactive Protein 5.94 mg/L (<8.01)
[2020-03-27] MEDS ORDERED: Zosyn per Pharmacy NOTE FOLLOW UP SCH (18:00)
[2020-03-27] MEDS: Nystatin TOP POWDER 15 GM BTL TOPICAL SCH (20:20)
[2020-03-27] MEDS: ZOSYN 3.375 GM Q8H per EXTENDED INFUSION IV SCH (21:12)
[2020-03-28] MEDS: ZOSYN 3.375 GM Q8H per EXTENDED INFUSION IV SCH ×2 (05:27→15:15)
[2020-03-28 07:06] LABS: ABS Basophils 0.1 10^3/ul (0-0.2); ABS Eosinophils 0.1 10^3/ul (0-0.6); ABS Lymphocytes 1.6 10^3/ul (1.0-4.8); ABS Monocytes 0.7 10^3/ul (0-0.8); Eosinophil % 1.5 %; Hematocrit 34 % (42-52); Hemoglobin 11.8 g/dL (14.0-18.0); Lymphocyte % 29.3 %; Mean Corpuscular HGB Conc 34 g/dL (31-36); Mean Corpuscular Hemoglobin 34 pg (27-31); Mean Corpuscular Volume 98 fL (80-94); Mean Platelet Volume 8.5 fL (7.4-10.4); Platelet Count 183 10^3/uL (150-450); Red Blood Count 3.51 10^6 /uL (4.18-5.48); Red Cell Distribution Width 17 % (10-15); White Blood Count 5.4 10^3/uL (3.5-10.8)
[2020-03-28 07:10] LABS: INR 0.9 (0.82-1.09)
[2020-03-28 07:21] LABS: Albumin 2.8 g/dL (3.2-5.2); Albumin/Globulin Ratio 1.4 (1-3); BUN/Creatinine Ratio 13.1 (8-20); Calcium 8.2 mg/dL (8.6-10.3); EGFR African American 112.4 (>60); EGFR Non-African American 92.9 (>60); Magnesium 1.7 mg/dL (1.9-2.7); Total Bilirubin 0.8 mg/dL (0.2-1.0); Total Protein 4.8 g/dL (6.4-8.9)
[2020-03-28] MEDS: Multivitamins/Minerals TAB PO SCH (09:35)
[2020-03-28] MEDS: Potassium Chlor 20 meq TAB.ER PO SCH (09:35)
[2020-03-28] MEDS: Nystatin TOP POWDER 15 GM BTL TOPICAL SCH ×3 (09:37→19:59)
[2020-03-28] MEDS ORDERED: Magnesium Sulfate IV 1GM/100ML 1 GM/100 ML BAG IV ONE (14:44)
[2020-03-28] MEDS: Enoxaparin 40 MG/0.4 ML SYR SUBCUT SCH (18:25)
[2020-03-29] MEDS: Potassium Chlor 20 meq TAB.ER PO SCH (09:16)
[2020-03-29] MEDS: Multivitamins/Minerals TAB PO SCH (09:17)
[2020-03-29] MEDS: Nystatin TOP POWDER 15 GM BTL TOPICAL SCH (09:18)
[2020-03-29 10:39] LABS: Calcium 8.4 mg/dL (8.6-10.3); EGFR African American 122.4 (>60); EGFR Non-African American 101.2 (>60); Magnesium 1.7 mg/dL (1.9-2.7); Potassium 3.8 mmol/L (3.5-5.0)
[2020-03-29 16:46] VITALS: BP 112/99
== END 2020-03-29 15:09 | DRG 897 ==
LOC: ED 14:49 → MEDTELE 16:52
PROVIDERS: ADMIT Student in an Organized Health Care Education/Training Program; ATTEND Internal Medicine

== ENCOUNTER 2021-06-29 16:00 | Inpatient (IN) ==
[2021-06-29] MEDS ORDERED: Thiamine 100 MG/ML 2 ml VIAL (200 mg) IM ONE (16:24)
[2021-06-29] MEDS ORDERED: Lorazepam PYXIS KEY PRN ×2 (16:39→18:41)
[2021-06-29] MEDS ORDERED: LORazepam 2 mg VIAL 1 ml IV PUSH SCH (17:00)
[2021-06-29 17:10] LABS: ABS Basophils 0.1 10^3/ul (0-0.2); ABS Lymphocytes 1.1 10^3/ul (1.0-4.8); ABS Monocytes 0.7 10^3/ul (0-0.8); ABS Neutrophils 8.3 10^3/ul (1.5-7.7); Eosinophil % 0.5 %; Hematocrit 48 % (42-52); Hemoglobin 16.2 g/dL (14.0-18.0); Mean Corpuscular HGB Conc 34 g/dL (31-36); Mean Corpuscular Hemoglobin 28 pg (27-31); Mean Corpuscular Volume 84 fL (80-94); Platelet Count 264 10^3/uL (150-450); Red Blood Count 5.68 10^6 /uL (4.18-5.48); Red Cell Distribution Width 17 % (10-15); White Blood Count 10.2 10^3/uL (3.5-10.8)
[2021-06-29] MEDS ORDERED: Thiamine 100 MG/ML 2 ml VIAL 100 MG, Folic Acid IV 1 MG, Multiple Vitamin IV ADULT 10 M... IV ONE (17:15)
[2021-06-29 17:27] LABS: ALT 4 U/L (7-52); AST 10 U/L (13-39); Albumin 3.9 g/dL (3.2-5.2); Albumin/Globulin Ratio 1.4 (1-3); Alkaline Phosphatase 111 U/L (35-149); Anion Gap 9 mmol/L (2-11); Blood Urea Nitrogen 16 mg/dL (6-24); CO2 Carbon Dioxide 29 mmol/L (22-32); Calcium 9.5 mg/dL (8.6-10.3); Chloride 97 mmol/L (101-111); Globulin 2.8 g/dL (2-4); Glucose 79 mg/dL (70-100); Magnesium 1.8 mg/dL (1.9-2.7); Potassium 4.3 mmol/L (3.5-5.0); Sodium 135 mmol/L (135-145); Total Protein 6.7 g/dL (6.4-8.9); eGFR CKD-EPI 69.8 (>60)
[2021-06-29 17:37] LABS: Alcohol, S < 13 mg/dL (<13)
[2021-06-29] MEDS ORDERED: Magnesium Sulfate 2 gm BAG 2 GM/50 ML BAG IVPB ONE (18:43)
[2021-06-29] MEDS: Enoxaparin 40 MG/0.4 ML SYR SUBCUT SCH (23:21)
[2021-06-30 06:05] LABS: INR 1.04 (0.86-1.15)
[2021-06-30 06:15] LABS: Calcium 8.8 mg/dL (8.6-10.3); Potassium 3.4 mmol/L (3.5-5.0); eGFR CKD-EPI 77.6 (>60)
[2021-06-30] MEDS: Multivitamins/Minerals TAB PO SCH (07:42)
[2021-06-30] MEDS: Potassium Chlor 20 meq TAB.ER PO SCH (07:43)
[2021-06-30] MEDS: LORazepam 2 mg VIAL 1 ml IV PUSH PRN ×3 (09:24→20:32)
[2021-06-30] MEDS ORDERED: Ondansetron 4 mg VIAL 2 MG/ML 2 ml VIAL IV PRN (14:09)
[2021-06-30] MEDS: Enoxaparin 40 MG/0.4 ML SYR SUBCUT SCH (20:33)
[2021-07-01 07:11] LABS: Calcium 8.8 mg/dL (8.6-10.3); Magnesium 1.9 mg/dL (1.9-2.7); Potassium 3.3 mmol/L (3.5-5.0); eGFR CKD-EPI 73.5 (>60)
[2021-07-01] MEDS: Multivitamins/Minerals TAB PO SCH (08:11)
[2021-07-01] MEDS: Potassium Chlor 20 meq TAB.ER PO SCH (08:11)
[2021-07-01] MEDS ORDERED: Potassium Chlor 10 meq TAB PO ONE (08:36)
[2021-07-01] MEDS ORDERED: Nicotine PATCH 14 MG/24 HR PATCH TRANSDERM SCH (09:00)
[2021-07-01] MEDS: LORazepam 2 mg VIAL 1 ml IV PUSH PRN ×2 (10:16→21:08)
[2021-07-01] MEDS: Enoxaparin 40 MG/0.4 ML SYR SUBCUT SCH (21:06)
[2021-07-02] MEDS: LORazepam 2 mg VIAL 1 ml IV PUSH PRN (03:07)
[2021-07-02] MEDS: Multivitamins/Minerals TAB PO SCH (09:32)
[2021-07-02] MEDS: Potassium Chlor 20 meq TAB.ER PO SCH (09:32)
[2021-07-02 11:07] VITALS: BP 149/93
== END 2021-07-02 15:45 | DRG 897 ==
LOC: ED 16:00 → SUATTDRO 18:37 → EDHOLD 18:37 → MED 22:30
PROVIDERS: ADMIT Internal Medicine; ATTEND Student in an Organized Health Care Education/Training Program

== ENCOUNTER 2022-01-08 14:27 | Inpatient (IN) ==
[2022-01-08 16:51] LABS: High Sens Troponin Baseline 10 pg/mL (<20)
[2022-01-08 16:55] LABS: ALT 6 U/L (7-52); Albumin 3.8 g/dL (3.2-5.2); Albumin/Globulin Ratio 1.4 (1-3); Alcohol, S < 13 mg/dL (<13); Alkaline Phosphatase 108 U/L (35-149); Blood Urea Nitrogen 13 mg/dL (6-24); CO2 Carbon Dioxide 28 mmol/L (22-32); Calcium 9.4 mg/dL (8.6-10.3); Chloride 100 mmol/L (101-111); Globulin 2.8 g/dL (2-4); Glucose 120 mg/dL (70-100); Sodium 138 mmol/L (135-145); Total Protein 6.6 g/dL (6.4-8.9)
[2022-01-08 16:59] LABS: AST 9 U/L (13-39); Anion Gap 10 mmol/L (2-11); Potassium 3.9 mmol/L (3.5-5.0)
[2022-01-08 17:11] LABS: ABS Basophils 0.1 10^3/ul (0-0.2); ABS Lymphocytes 0.8 10^3/ul (1.0-4.8); ABS Monocytes 0.7 10^3/ul (0-0.8); ABS Neutrophils 10.6 10^3/ul (1.5-7.7); Eosinophil % 0.2 %; Hematocrit 46 % (42-52); Hemoglobin 14.9 g/dL (14.0-18.0); Lymphocyte % 6.2 %; Mean Corpuscular HGB Conc 33 g/dL (31-36); Mean Corpuscular Hemoglobin 27 pg (27-31); Mean Corpuscular Volume 84 fL (80-94); Platelet Count 280 10^3/uL (150-450); Red Blood Count 5.46 10^6 /uL (4.18-5.48); Red Cell Distribution Width 16 % (10-15); White Blood Count 12.2 10^3/uL (3.5-10.8)
[2022-01-08 17:35] LABS: High Sensitivity Troponin 1 Hr 14 pg/mL (<20)
[2022-01-08 17:48] LABS: Urine Appearance Slightly Cloudy; Urine Bilirubin Negative (Negative); Urine Blood Negative (Negative); Urine Color Yellow; Urine Glucose Negative (Negative); Urine Ketones Negative (Negative); Urine Nitrite Negative (Negative); Urine Protein 1+ (30 mg/dL) (Negative); Urine Urobilinogen 1.0 (Negative) (Negative); Urine pH 7.5 (5.0-9.0)
[2022-01-08 17:53] LABS: Urine Bacteria Absent (Absent); Urine Red Blood Cell 2+(6-10/hpf) (Absent); Urine Squamous Epithelial Cell Present (Absent); Urine White Blood Cell Absent (Absent)
[2022-01-08 17:56] LABS: Urine Benzodiazepine Screen None Detected (None Detect); Urine Cannabinoids Screen None Detected (None Detect); Urine Opiates Screen None Detected (None Detect)
[2022-01-08 18:02] LABS: INR 0.97 (0.89-1.11)
[2022-01-08] MEDS ORDERED: Labetalol IV 5 MG/ML 20 ml VIAL IV PUSH ONE (19:09)
[2022-01-09] MEDS ORDERED: Thiamine 100 MG/ML 2 ml VIAL (200 mg) IM ONE (12:46)
[2022-01-09] MEDS: Multivitamins/Minerals TAB PO SCH (13:14)
[2022-01-10] MEDS: Multivitamins/Minerals TAB PO SCH (08:51)
[2022-01-10] MEDS ORDERED: NS 0.9% 1000 ml BAG 1,000 ML IV SCH (12:15)
[2022-01-10] MEDS: Ondansetron 4 mg VIAL 2 MG/ML 2 ml VIAL IV PRN (19:33)
[2022-01-11 06:28] LABS: Calcium 8.8 mg/dL (8.6-10.3); Potassium 2.8 mmol/L (3.5-5.0); eGFR CKD-EPI 66.6 (>60)
[2022-01-11] MEDS ORDERED: Potassium Chloride LIQUID 20 MEQ/15 ML LIQUID PO ONE (07:12)
[2022-01-11] MEDS ORDERED: KCL 20 MEQ/100 ML IVPREMIX 20 MEQ/100 ML BAG IV ONE (07:39)
[2022-01-11] MEDS: Multivitamins/Minerals TAB PO SCH (08:56)
[2022-01-11] MEDS: Potassium Chloride LIQUID 20 MEQ/15 ML LIQUID PO SCH ×2 (08:57→21:31)
[2022-01-11] MEDS: Heparin 5000 UNITS/ML 1 mL VIAL SUBCUT SCH ×2 (13:26→21:32)
[2022-01-12 07:27] LABS: Calcium 8.9 mg/dL (8.6-10.3); Potassium 3.3 mmol/L (3.5-5.0); eGFR CKD-EPI 78.9 (>60)
[2022-01-12] MEDS ORDERED: Potassium Chlor 20 meq TAB.ER PO ONE (07:52)
[2022-01-12] MEDS: Heparin 5000 UNITS/ML 1 mL VIAL SUBCUT SCH ×2 (10:17→18:28)
[2022-01-12] MEDS: Potassium Chloride LIQUID 20 MEQ/15 ML LIQUID PO SCH ×2 (10:18→20:30)
[2022-01-12] MEDS: Multivitamins/Minerals TAB PO SCH (10:19)
[2022-01-13] MEDS: Heparin 5000 UNITS/ML 1 mL VIAL SUBCUT SCH ×4 (03:06→17:30)
[2022-01-13 06:22] LABS: HDL Cholesterol 63.3 mg/dL
[2022-01-13] MEDS: Multivitamins/Minerals TAB PO SCH (09:18)
[2022-01-13] MEDS: Potassium Chloride LIQUID 20 MEQ/15 ML LIQUID PO SCH ×2 (09:18→20:07)
[2022-01-14] MEDS: Heparin 5000 UNITS/ML 1 mL VIAL SUBCUT SCH ×2 (01:07→09:22)
[2022-01-14 07:05] LABS: Calcium 9.1 mg/dL (8.6-10.3); eGFR CKD-EPI 74.6 (>60)
[2022-01-14] MEDS: Potassium Chloride LIQUID 20 MEQ/15 ML LIQUID PO SCH ×2 (09:13→20:30)
[2022-01-14] MEDS: Multivitamins/Minerals TAB PO SCH (09:15)
[2022-01-14] MEDS: Ondansetron 4 mg VIAL 2 MG/ML 2 ml VIAL IV PRN ×2 (14:23→20:44)
[2022-01-14] MEDS ORDERED: NS 0.9% 1000 ml BAG 1,000 ML IV SCH (14:45)
[2022-01-14] MEDS ORDERED: Pantoprazole VIAL 40 MG VIAL IV SCH ×2 (15:00→21:00)
[2022-01-14] MEDS ORDERED: Lorazepam PYXIS KEY PRN ×2 (15:15→18:25)
[2022-01-14] MEDS ORDERED: LORazepam 2 mg VIAL 1 ml IV PUSH ONE (15:16)
[2022-01-14] MEDS ORDERED: Ondansetron 4 mg VIAL 2 MG/ML 2 ml VIAL IV ONE (15:23)
[2022-01-14 16:24] LABS: Hematocrit 41 % (42-52); Hemoglobin 14.3 g/dL (14.0-18.0)
[2022-01-14 17:17] LABS: Hematocrit 44 % (42-52); Hemoglobin 14.5 g/dL (14.0-18.0)
[2022-01-14] MEDS: LORazepam 2 mg VIAL 1 ml IV PUSH PRN ×2 (18:45→23:07)
[2022-01-14] MEDS ORDERED: Potassium Chlor 20 meq TAB.ER PO ONE (20:29)
[2022-01-14] MEDS ORDERED: Prochlorperazine 5 mg/ml 2 ml VIAL (10 mg) IV ONE (21:38)
[2022-01-14] MEDS: NS 0.9% 1000 ml BAG 1,000 ML IV SCH (21:49)
[2022-01-14 22:13] LABS: Hematocrit 43 % (42-52); Hemoglobin 14.6 g/dL (14.0-18.0)
[2022-01-15] MEDS: Ondansetron 4 mg VIAL 2 MG/ML 2 ml VIAL IV PRN ×2 (02:44→10:51)
[2022-01-15] MEDS: LORazepam 2 mg VIAL 1 ml IV PUSH PRN (02:53)
[2022-01-15] MEDS: NS 0.9% 1000 ml BAG 1,000 ML IV SCH ×3 (03:16→20:37)
[2022-01-15 06:23] LABS: ABS Lymphocytes 0.7 10^3/ul (1.0-4.8); ABS Neutrophils 11.3 10^3/ul (1.5-7.7); Hematocrit 41 % (42-52); Hemoglobin 13.5 g/dL (14.0-18.0); Lymphocyte % 5.4 %; Mean Corpuscular HGB Conc 33 g/dL (31-36); Mean Corpuscular Hemoglobin 28 pg (27-31); Mean Corpuscular Volume 83 fL (80-94); Mean Platelet Volume 7.9 fL (7.4-10.4); Platelet Count 318 10^3/uL (150-450); Red Blood Count 4.93 10^6 /uL (4.18-5.48); Red Cell Distribution Width 16 % (10-15)
[2022-01-15 06:51] LABS: Blood Urea Nitrogen 25 mg/dL (6-24); Calcium 9.2 mg/dL (8.6-10.3); Chloride 83 mmol/L (101-111); Glucose 178 mg/dL (70-100); Potassium 3.7 mmol/L (3.5-5.0); Sodium 144 mmol/L (135-145); eGFR CKD-EPI 39.1 (>60)
[2022-01-15 07:37] LABS: CO2 Carbon Dioxide 47 mmol/L (22-32)
[2022-01-15 08:02] LABS: Venous Bicarbonate HCO3 47.3 mmol/L (24-28)
[2022-01-15] MEDS: Pantoprazole 80 mg in NS BAG 80 MG/250 ML BAG IV SCH ×2 (10:51→20:33)
[2022-01-15] MEDS: Metoprolol Tartrate 5 mg VIAL 5 ml VIAL (1 mg/ml) IV SCH ×3 (10:51→22:52)
[2022-01-15] MEDS: Potassium Chloride LIQUID 20 MEQ/15 ML LIQUID PO SCH (10:58)
[2022-01-15] MEDS: Multivitamins/Minerals TAB PO SCH (10:58)
[2022-01-15 12:03] LABS: Hematocrit 40 % (42-52); Hemoglobin 12.8 g/dL (14.0-18.0)
[2022-01-15 15:58] LABS: Calcium 8.5 mg/dL (8.6-10.3); Potassium 3.4 mmol/L (3.5-5.0); eGFR CKD-EPI 36.2 (>60)
[2022-01-15] MEDS ORDERED: Midazolam 10 mg/10 ml VIAL 1 mg/ml 10 ml VIAL (10 mg) ONE (17:54)
[2022-01-15] MEDS ORDERED: fentaNYL 100 mcg/2 ml 50 MCG/ML VIAL ONE (17:54)
[2022-01-15 20:05] LABS: Hematocrit 34 % (42-52); Hemoglobin 10.9 g/dL (14.0-18.0)
[2022-01-16] MEDS: NS 0.9% 1000 ml BAG 1,000 ML IV SCH ×3 (03:26→17:51)
[2022-01-16] MEDS: Metoprolol Tartrate 5 mg VIAL 5 ml VIAL (1 mg/ml) IV SCH ×2 (03:54→09:58)
[2022-01-16 05:02] LABS: Hematocrit 31 % (42-52); Mean Corpuscular HGB Conc 32 g/dL (31-36); Mean Corpuscular Hemoglobin 27 pg (27-31); Mean Corpuscular Volume 84 fL (80-94); Mean Platelet Volume 8.1 fL (7.4-10.4); Platelet Count 239 10^3/uL (150-450); Red Blood Count 3.69 10^6 /uL (4.18-5.48); Red Cell Distribution Width 16 % (10-15); White Blood Count 17.9 10^3/uL (3.5-10.8)
[2022-01-16 05:13] LABS: INR 1.08 (0.89-1.11)
[2022-01-16 05:29] LABS: Calcium 8.1 mg/dL (8.6-10.3); Potassium 3.1 mmol/L (3.5-5.0); eGFR CKD-EPI 52.8 (>60)
[2022-01-16] MEDS: Pantoprazole 80 mg in NS BAG 80 MG/250 ML BAG IV SCH (07:05)
[2022-01-16] MEDS: Potassium Chloride LIQUID 20 MEQ/15 ML LIQUID PO SCH ×2 (14:25→18:09)
[2022-01-17] MEDS: NS 0.9% 1000 ml BAG 1,000 ML IV SCH ×2 (00:42→07:51)
[2022-01-17 05:59] LABS: ABS Eosinophils 0.2 10^3/ul (0-0.6); ABS Lymphocytes 1.6 10^3/ul (1.0-4.8); ABS Monocytes 1.1 10^3/ul (0-0.8); Eosinophil % 1.5 %; Hematocrit 30 % (42-52); Hemoglobin 9.9 g/dL (14.0-18.0); Lymphocyte % 11.5 %; Mean Corpuscular HGB Conc 33 g/dL (31-36); Mean Corpuscular Hemoglobin 28 pg (27-31); Mean Corpuscular Volume 85 fL (80-94); Mean Platelet Volume 8.3 fL (7.4-10.4); Platelet Count 224 10^3/uL (150-450); Red Blood Count 3.53 10^6 /uL (4.18-5.48); Red Cell Distribution Width 16 % (10-15); White Blood Count 13.9 10^3/uL (3.5-10.8)
[2022-01-17 06:24] LABS: Calcium 8.3 mg/dL (8.6-10.3); Potassium 3.8 mmol/L (3.5-5.0); eGFR CKD-EPI 88.8 (>60)
[2022-01-20 09:19] LABS: Hematocrit 32 % (42-52); Hemoglobin 10.5 g/dL (14.0-18.0); Mean Corpuscular HGB Conc 33 g/dL (31-36); Mean Corpuscular Hemoglobin 28 pg (27-31); Mean Corpuscular Volume 84 fL (80-94); Mean Platelet Volume 7.9 fL (7.4-10.4); Platelet Count 248 10^3/uL (150-450); Red Blood Count 3.78 10^6 /uL (4.18-5.48); Red Cell Distribution Width 16 % (10-15); White Blood Count 9.4 10^3/uL (3.5-10.8)
[2022-01-20] MEDS: Polyethylene Glycol 3350 17 GM PACKET PO SCH (12:54)
[2022-01-21] MEDS: Aspirin EC 81 mg TAB.EC (enteric coated) PO SCH (08:58)
[2022-01-21] MEDS: Polyethylene Glycol 3350 17 GM PACKET PO SCH (08:58)
[2022-01-22] MEDS: Polyethylene Glycol 3350 17 GM PACKET PO SCH (08:53)
[2022-01-22] MEDS: Aspirin EC 81 mg TAB.EC (enteric coated) PO SCH (08:55)
[2022-01-22 21:36] LABS: Rapid COVID-19 Molecular Undetected (Undetected)
[2022-01-23] MEDS: Aspirin EC 81 mg TAB.EC (enteric coated) PO SCH (07:36)
[2022-01-23] MEDS: Polyethylene Glycol 3350 17 GM PACKET PO SCH (07:36)
[2022-01-23 11:11] VITALS: BP 131/72
== END 2022-01-23 12:50 | DRG 64 ==
LOC: EDHOLD 14:27 → ED 14:27 → SUATTDRO 01-09 10:51 → MEDTELE 01-09 20:03 → SUATTDRO 01-11 14:41 → MED 01-13 16:27
PROVIDERS: ADMIT Internal Medicine; ATTEND Internal Medicine